=== PATIENT | male | born 1975 | race Caucasian/White ===

== ENCOUNTER → 2016-09-21 | Outpatient (CLI) | payer OTHER ==
[~2016-09-21] MED LIST: ACETAMINOPHEN-H1 TA2 PO; ALKA-SELTZER PL1 TEF PO; BENTYL10 MG PO; CLINDAMYCIN150 MG PO; CORDROL20 MG PO; Carafate1 GM PO; DOXYCYCLINE100 M3 PO; FENOFIBRATE160 MG PO; FLAGYL500 MG PO; GLIPIZIDE5 MG PO; GLUCOTROL5 MG PO; HUMALOG100 U/ML SC; JANUMET 500 MG-1 TAB PO; JANUVIA100 MG PO; LANTUS SOLOS100 U/M1 SC; LISINOPRIL40 MG PO; LOPRESSOR100 M1 PO; LOPRESSOR25 MG PO; METFORMIN ER500 MG PO; METOPROLOL TART50 M1 PO; MOBIC15 MG PO; NEURONTIN300 MG PO; NORVASC10 MG PO; PHENERGAN W/DM120 ML PO; PRILOSEC20 M1 PO; PROAIR HFA0.09 MG/AC IH; PROZAC10 MG PO; SILVADENE,SSD C50 GM T; TEMAZEPAM15 M1 PO; TOUJEO300 U/ML SC; TRAZODONE50 MG PO; ULTRAM50 MG PO; UNISOM SLEEPGEL50 MG PO; VASOTEC5 MG PO; VIBRAMYCIN100 MG PO; ZOCOR10 MG PO; ZOCOR5 MG PO; ZOFRAN ODT4 MG SL
--- NOTE | ~2016-09-21 | PR ---
[place], [place] PROGRESS NOTE NAME: VIPIN QUINONES UNIT #: [id number] ROOM: DOCTOR: JYOTI Gallardo,RAMESH BIRTHDATE: [birth year] DOS: 09/21/2016 This is a HBO therapy note This is treatment #28. The protocol is 2.0 JORDEN with 90 minutes of oxygen and no air breaks. The indication is diabetic ulcer of the lower extremity, Mcguire stage III. TREATMENT LENGTH: Her treatment started at 8:30. Treatment pressure was reached at 08:38. Treatment length was 33 minutes. Decompression began at 08:55 and ended at 09:03. Decompression rate up was 1.5 psi per minute. Compression rate down was 2.0 psi per minute. Vitals pre-HBO shows a blood pressure of 150/88, a pulse of 68, respirations 16, temperature 97.4. Glucose is 270. Post-HBO, the blood pressure is 164/84, pulse of 76, respirations 16, temperature 97.4. Glucose was 202. TEED scale grade 0 bilaterally pre and post-HBO treatment. The patient was feeling nauseous with dry heaves while he was in the chamber. He requested to end his treatment early. He said he felt a little bit nauseous this morning prior to him coming to the clinic. He had only eaten a piece of toast in the morning. He was given some crackers here and Trisha kiki and started to feel better. Advised the patient that he should eat a little bit more than one piece of dried toast for prior to HBO. The patient had a wound care appointment later this morning. I certify that I supervised this HBO treatment in accordance with Medicare guidelines. A trained emergency response team is readily available per hospital policies and procedures. Continue HBO therapy as ordered. RAMESH MONTES MD CM:PNTRANS [phone] RAMESH MONTES M.D. 09/22/16 0327 interface
--- NOTE | ~2016-09-21 | PR ---
[place], [place] PROGRESS NOTE NAME: VIPIN QUINONES UNIT #: [id number] ROOM: DOCTOR: TAPAN FERNANDEZ DPM BIRTHDATE: [birth year] DOS: 09/21/2016 SUBJECTIVE: The patient is seen for right plantar foot wound. The patient felt a little bit ill this morning when he was doing hyperbaric. He felt like he had dry heaves. He has not felt well for a couple of days. Otherwise, he has no new complaints. PHYSICAL EXAMINATION: It is noted that the area on the plantar surface of the right foot is still slightly opened at 0.1 x 0.1 x 0.1. There is callus tissue and debris, which was debrided through dermis with a 15 blade. No bleeding was noted. Wound measurements did not change. There is noted some maceration around the area. IMPRESSION: Grade 3 diabetic ulceration, progressing well. PLAN: 1. Evaluate. 2. Debridement was performed. We will change his dressings to Maxorb to the area daily. He is to continue to wear his offloading posterior splint and finish his hyperbaric oxygen therapy treatments. His last treatment is scheduled for this . The patient will be seen in 2 weeks at wound care for followup. He is to call if any problems arise in the meantime. TAPAN FERNANDEZ DPM CM:PNTRANS [phone] TAPAN FERNANDEZ DPM 09/21/16 1050 interface
== END ==
LOC: WOUNDCARE 03:11
DX: E11.621 Type 2 diabetes mellitus with foot ulcer (principal); L97.512 Non-pressure chronic ulcer of other part of right foot with fat layer exposed; L84 Corns and callosities

== ENCOUNTER → 2016-09-22 | Outpatient (CLI) | payer OTHER ==
--- NOTE | ~2016-09-22 | PR ---
[place], [place] PROGRESS NOTE NAME: VIPIN QUINONES UNIT #: [id number] ROOM: DOCTOR: JYOTI Gallardo,RAMESH BIRTHDATE: [birth year] DOS: 09/22/2016 HBO THERAPY NOTE This is treatment #29. INDICATION: Diabetic foot ulcer, Mcguire stage 3. The protocol is 2.0 JORDEN with 90 minutes of oxygen and no air breaks. His compression began at 827. Treatment pressure was reached at 835. Decompression began at 10:05 and ended at 10:13. His treatment length was 106 minutes. His vitals pre-HBO shows a blood pressure of 140/88, a pulse of 62, respirations 16, temperature is 97.8. Post-HBO treatment, the blood pressure is 168/96, pulse of 64, respirations 16, temperature is 97.7, glucose was 188. TEED scale is grade 0 bilaterally pre and post-HBO treatment. I certify that I supervised this HBO treatment in accordance with Medicare guidelines. A trained emergency response team is readily available per hospital policies and procedures. Continue HBO therapy as ordered. RAMESH MONTES MD CM:PNTRANS [phone] RAMESH MONTES M.D. 09/22/162230 interface
== END ==
LOC: WOUNDCARE 08:03
DX: E11.621 Type 2 diabetes mellitus with foot ulcer (principal); L97.512 Non-pressure chronic ulcer of other part of right foot with fat layer exposed

== ENCOUNTER → 2016-09-23 | Outpatient (CLI) | payer OTHER ==
--- NOTE | ~2016-09-23 | PR ---
[place], [place] PROGRESS NOTE NAME: VIPIN QUINONES UNIT #: [id number] ROOM: DOCTOR: JYOTI Gallardo,RAMESH BIRTHDATE: [birth year] DOS: 09/23/2016 This is HBO therapy note. INDICATION: Diabetic ulcer of the foot with a Mcguire stage III. The treatment protocol is 2.0 JORDEN with 90 minutes of oxygen and no air breaks. Treatment number was 30. The compression began at 08:12. Treatment pressure was reached at 08:20. Compression rate down was 2.0 psi per minute and decompression rate up was 2.0 psi per minute. Decompression began at 09:20 and ended at 09:28. The treatment length was 76 minutes. VITAL SIGNS: Pre-HBO shows a blood pressure of 144/88, pulse of 74, respirations 16, temperature 97.5. Glucose is 264. Post-HBO, the blood pressure is 152/92, a pulse of 68, respiratory rate is 16, temperature is 97.5, glucose of 278. TEED scale is grade 0 bilaterally pre and post-HBO treatment. The patient tolerated the treatment well without any adverse events, and he requested to end the treatment early due to transportation issues. I certify that I supervised this HBO treatment in accordance with Medicare guidelines. A trained emergency response team is readily available per hospital policies and procedures. Continue HBO therapy as ordered. RAMESH MONTES MD CM:PNTRANS [phone] RAMESH MONTES M.D. 09/24/16 0332 interface
== END ==
LOC: WOUNDCARE 01:20
DX: E11.621 Type 2 diabetes mellitus with foot ulcer (principal); L97.512 Non-pressure chronic ulcer of other part of right foot with fat layer exposed

== ENCOUNTER → 2016-10-05 | Outpatient (CLI) | payer OTHER ==
--- NOTE | ~2016-10-05 | PR ---
[place], [place] PROGRESS NOTE NAME: VIPIN QUINONES UNIT #: [id number] ROOM: DOCTOR: TAPAN FERNANDEZ DPM BIRTHDATE: [birth year] DOS: 10/05/2016 SUBJECTIVE: The patient seen for right plantar foot ulceration. The patient has completed his hyperbaric oxygen therapy treatments without any complaints. PHYSICAL EXAMINATION: Upon physical exam, it is noted that the ulceration upon exam is completely closed. Callous covered without any evidence of open wound or drainage. The patient states that he has been wearing his posterior splint as directed without any complaints. IMPRESSION: Healed wound, plantar surface of the right foot. PLAN: 1. Evaluate. 2. The patient will be discharged as healed. He was given a prescription for diabetic shoes and insoles. His current insoles in his work boots were modified to offload the area of the previous ulceration. The patient will be discharged as healed and reappoint as needed. TAPAN FERNANDEZ DPM CM:PNZAHIRA [phone] TAPAN FERNANDEZ DPM 10/05/162210 interface
--- NOTE | ~2016-10-05 | PR ---
[place], [place] PROGRESS NOTE [id number] UNIT #: [id number] ROOM: DOCTOR: REBECCA RYANTAPAN BIRTHDATE: [birth year] DOS: 11/09/2016 SUBJECTIVE: The patient had been seen at the [facility] quite a while ago, he was healed and discharged. He was given a script for diabetic shoes. Apparently, [facility] has now stopped dispensing diabetic shoes, they are only doing prosthetics and orthotics. He was just recently given an alternative shoe company to get his diabetic shoes through. Today, he presents with wounds on both feet. The left foot recurred several weeks ago, and about a week ago, he developed another area of ulceration on the right foot, possibly due to trauma, he noticed some bleeding in his shoes and subsequently noticed this wound. PHYSICAL EXAMINATION: It is noted that the left foot plantar surface wound is 0.5 x 0.5 x 0.3. There is a lot of callus tissue and devitalized tissue, which was debrided through subcutaneously with a 15 blade. The patient tolerated the procedure well. There was moderate bleeding controlled with pressure to the area and no signs of infection currently in this area. Right foot plantar surface wound measures 0.5 x 0.3 x 0.5. It is completely circular. There is erythema and appearance of some deep tissue infection. There is a darkened spot and what appears to be a puncture-type wound with probing of this area, a piece of foreign body is thought to be felt within the surface of the wound and also makes a noise similar to like if there was some sort of metal or twig or some sort of foreign body in the area. Again, this area measures 0.5 x 0.3 x 0.5 in depth. No drainage or odor coming from the site currently. IMPRESSION: Left foot plantar surface wound grade 2, diabetic in nature, and right foot plantar surface wound with cellulitis and infection, probably grade 3 at this point in time, if there is a foreign body. PLAN: 1. Evaluate. 2. Debridement was performed. The patient will be sent for x-rays. He was also placed on doxycycline. I did take a culture and sensitivity to the area and I would like to see the patient back in 1 week for followup of this complaint. [place], [place] PROGRESS NOTE NAME: VIPIN QUINONES UNIT #: [id number] ROOM: DOCTOR: TAPAN FERNANDEZ DPM BIRTHDATE: [birth year] TAPAN FERNANDEZ DPM CM:LESLIE [phone] TAPAN FERNANDEZ DPM 12/01/16 1244 AMY DOS SANTOS.LLR
== END | disposition home or self-care (01) ==
LOC: WOUNDCARE 02:41
DX: E11.621 Type 2 diabetes mellitus with foot ulcer (principal); L97.512 Non-pressure chronic ulcer of other part of right foot with fat layer exposed; L84 Corns and callosities

== ENCOUNTER → 2016-12-14 | Outpatient (CLI) | payer OTHER ==
--- NOTE | ~2016-12-14 | PR ---
[place], [place] PROGRESS NOTE NAME: VIPIN QUINONES [id number] UNIT #: [id number] ROOM: DOCTOR: TAPAN FERNANDEZ DPM BIRTHDATE: [birth year] DOS: 12/14/2016 SUBJECTIVE: This is an established patient seen for bilateral lower extremity diabetic neuropathic wounds. The patient has been performing dressing changes as directed. No new complaints at this time. PHYSICAL EXAMINATION: It is noted, the left foot plantar wound is very small at 0.1 x 0.1 x 0.1. There is some callus tissue and debris, which was debrided through dermis. No bleeding was noted. The patient tolerated the procedure well. Right foot plantar surface wound is 0.5 x 0.5 x 0.2. Again, an abundance of devitalized callus tissue was debrided through dermis with a 15 blade. No bleeding was noted. The patient tolerated the procedure well. Either side looks as if there is any bacterial infection or any other abnormalities noted at this point in time. IMPRESSION: Grade 2 diabetic ulcerations, bilateral, stable and progressing, but needing better offloading. PLAN: 1. Evaluate. 2. Debridement was performed. I discussed the possibility of putting the patient back in a posterior splint. He is a bit reluctant to do that. On the right foot, we will use offloading felted foam, horseshoe shaped pads to offload the area and help structurally support the metatarsals and straighten the toes. The patient thinks he has an appointment to get diabetic shoes. I would like for a metatarsal pad to be worked into his diabetic inserts. I have instructed him to tell the cardiac rehabilitation program director as such. We will see the patient back in a week. If we are still not getting enough offloading to that area, we will then put him in a posterior splint. The patient is to call if any problems arise in the meantime. TAPAN FERNANDEZ DPM CM:PNTRANS [phone] TAPAN FERNANDEZ DPM 12/14/16 1205 interface
== END ==
LOC: WOUNDCARE 03:10
DX: E10.621 Type 1 diabetes mellitus with foot ulcer (principal); L97.512 Non-pressure chronic ulcer of other part of right foot with fat layer exposed; L97.522 Non-pressure chronic ulcer of other part of left foot with fat layer exposed; E10.40 Type 1 diabetes mellitus with diabetic neuropathy, unspecified

== ENCOUNTER → 2016-12-21 | Outpatient (CLI) | payer OTHER ==
--- NOTE | ~2016-12-21 | PR ---
[place], [place] PROGRESS NOTE NAME: VIPIN QUINONES UNIT #: [id number] ROOM: DOCTOR: TAPAN FERNANDEZ DPM BIRTHDATE: [birth year] DOS: 12/21/2016 SUBJECTIVE: This is an established patient seen for plantar surface diabetic ulcerations, bilateral feet. The patient is doing well. He has no new complaints today; he has been using the offloading horseshoe shaped pads and seems to be progressing very well. Right foot plantar surface wound is measuring much smaller at 0.6 x 0.3 x 0.3. Callus tissue and debris was divided around the periphery of the wound. The patient tolerated the procedure well. Some bleeding was noted. This was taken down to the level of dermis. Silver nitrate was used to control bleeding. Left foot plantar surface is very small wound 0.1 x 0.1 x 0.1. Minimal calluses there which was debrided through dermis. No signs of infection or complications noted. IMPRESSION: Grade 2 diabetic ulcerations, bilateral feet, progressing very well. PLAN: 1. Evaluate. 2. Debridement as described. We will use Puracol and a dry bulky dressing to the right foot with a horseshoe pad to offload the area. Additional horseshoe pads were given to the patient. We will see him in 2 weeks for followup of this complaint. TAPAN FERNANDEZ DPM CM:LESLIE [phone] TAPAN FERNANDEZ DPM 12/21/16 1143 interface
== END ==
LOC: WOUNDCARE 12-20 11:49
DX: E10.621 Type 1 diabetes mellitus with foot ulcer (principal); L97.512 Non-pressure chronic ulcer of other part of right foot with fat layer exposed; L97.522 Non-pressure chronic ulcer of other part of left foot with fat layer exposed; L84 Corns and callosities

== ENCOUNTER → 2017-01-04 | Outpatient (CLI) | payer OTHER ==
--- NOTE | ~2017-01-04 | PN ---
[place], [place] PROGRESS NOTE NAME: VIPIN QUINONES UNIT #: [id number] ROOM: DOCTOR: TAPAN FERNANDEZ DPM BIRTHDATE: [birth year] DATE: 01/04/17 SUBJECTIVE: The patient seen for plantar surface, right foot ulceration as well as plantar surface left foot ulceration. Left foot ulcer is healed. Right foot ulcer currently measures 0.3 x 0.3 x 0.2 beefy red granular base. No signs of infection noted. Moderate callus surrounding the tissue, which was debrided with 15 blade through to dermis and some bleeding was noted, controlled with silver nitrate. Again, no evidence of infection. One retention stitch was placed in the area using 3-0 Vicryl in a mattress stitch pattern. IMPRESSION: Grade 2 diabetic ulceration, plantar surface, right foot, progressing well. PLAN: 1. Evaluate. 2. Debridement was performed as well as the retention stitch placed. The patient will have a dry bulky dressing placed on the area. He is to changes this every 3-4 days and reappoint in 1 week for followup. He is to continue to wear his shoe with his offloading support device and call if any problems arise in the meantime. TAPAN FERNANDEZ DPM CM:PNTRANS [phone] TAPAN FERNANDEZ DPM 01/06/17 1417 AMY DOS SANTOS MIS.LLR
== END ==
LOC: WOUNDCARE 04:18
DX: E10.621 Type 1 diabetes mellitus with foot ulcer (principal); L97.512 Non-pressure chronic ulcer of other part of right foot with fat layer exposed; L84 Corns and callosities

== ENCOUNTER → 2017-01-11 | Outpatient (CLI) | payer OTHER ==
--- NOTE | ~2017-01-11 | PR ---
[place], [place] PROGRESS NOTE NAME[id number] UNIT #: [id number] ROOM: DOCTOR: TAPAN FERNANDEZ DPM BIRTHDATE: [birth year] DOS: 01/11/2017 SUBJECTIVE: The patient was seen for followup of bilateral plantar surface diabetic grade 2 ulcerations, right plantar foot ulcer had a stitch placed in it last week that has stayed in although there is some gapping, and left plantar foot is healed upon examination. Right plantar foot, the stitch was removed. The areas is measuring 0.5 x 0.2 x 0.2 cm. Callus tissue and debris was debrided through to dermis. Minimal bleeding was controlled with pressure and additional retention stitch 0 Vicryl was placed in the wound in a mattress pattern. The patient tolerated procedure well. IMPRESSION: Grade 2 diabetic ulceration, left foot healed. Grade 2 diabetic ulceration, right foot, progressing well. PLAN: 1. Evaluate. 2. Retention stitch was placed in the wound. The patient will keep bandage on clean, dry, and intact and reappoint next week for followup of this complaint. If any problems arise, he is to call the [facility] Care Center immediately. TAPAN FERNANDEZ DPM CM:LESLIE [phone] TAPAN FERNANDEZ DPM 01/11/17 1125 interface
== END ==
LOC: WOUNDCARE 01:05
DX: E10.621 Type 1 diabetes mellitus with foot ulcer (principal); L97.512 Non-pressure chronic ulcer of other part of right foot with fat layer exposed

== ENCOUNTER → 2017-01-18 | Outpatient (CLI) | payer OTHER ==
--- NOTE | ~2017-01-18 | PR ---
[place], [place] PROGRESS NOTE NAME: VIPIN QUINONES UNIT #: [id number] ROOM: DOCTOR: TAPAN FERNANDEZ DPM BIRTHDATE: [birth year] DOS: 01/18/2017 SUBJECTIVE: The patient seen for grade 2 diabetic plantar foot wound. The patient had suture placed last week. He has kept the bandage on, clean, dry and intact as directed and has no new complaints. PHYSICAL EXAMINATION: It is noted that the suture is in place. There is a small area centrally in the previous area of wound that measures 0.1 x 0.1 x 0.1. There is no evidence of infection or devitalized tissue or any other complications. No debridement was performed today. IMPRESSION: Grade 2 diabetic ulceration, progressing well with current therapies. PLAN: 1. Evaluate. 2. We will leave the stitch intact, dry dressing was reapplied. The patient is to keep this on clean, dry, and intact and reappoint at the wound center in 1 week. TAPAN FERNANDEZ DPM CM:PNZAHIRA [phone] TAPAN FERNANDEZ DPM 01/19/17 0159 interface
== END ==
LOC: WOUNDCARE 04:09
DX: E10.621 Type 1 diabetes mellitus with foot ulcer (principal); L97.512 Non-pressure chronic ulcer of other part of right foot with fat layer exposed

== ENCOUNTER → 2017-02-01 | Outpatient (CLI) | payer OTHER ==
--- NOTE | ~2017-02-01 | PR ---
[place], [place] PROGRESS NOTE NAME: [facility]ES [id number] UN[facility] #: [id number] ROOM: DOCTOR: TAPAN FERNANDEZ DPM BIRTHDATE: [birth year] DOS: 02/01/2017 SUBJECTIVE: The patient seen for the plantar surface, right foot grade 2 diabetic ulceration. The patient had a stitch placed in the area last time. He has kept the bandage on, clean, dry and intact without any complaints on this area. He does have a new injury that is just under week old. He did drop an automotive motor on his left great toe, and so he has a new ulcer on the distal aspect of this toe. PHYSICAL EXAMINATION: It is noted that the right plantar foot ulcer is progressing well. Stitch is in, but it is not needed any longer because the skin edges have coapted. There is only a very small opening to the area. It is very superficial, 0.1 x 0.1 x 0.1. Callus tissue and debris was debrided through to dermis. No bleeding or complications were noted in this area. Left great toe laterally has an open ulcer secondary to trauma. We will consider grade 1 diabetic. It is 1.2 x 1.6 x 0.1 cm base is relatively clean. There is a central area of some slough, but this area is not debrided today. No signs of infection, odor or cellulitis noted around this region. IMPRESSION: Grade 1 ulceration new left toe and then grade 2 diabetic ulceration on plantar surface, right foot, progressing well. PLAN: 1. Evaluate. 2. Debridement of the callus tissue was performed on the right foot. We will continue with Puracol and a dry dressing to that area, left great toe. We will use Adaptic and a dry dressing to that area every other day. I would like to see the patient back in 1 week for followup of these complaints. TAPAN FERNANDEZ DPM CM:PNTRANS [phone] TAPAN FERNANDEZ DPM 02/02/17 0156 interface
== END | disposition home or self-care (01) ==
LOC: WOUNDCARE 03:11
DX: E11.621 Type 2 diabetes mellitus with foot ulcer (principal); L97.511 Non-pressure chronic ulcer of other part of right foot limited to breakdown of skin; L97.521 Non-pressure chronic ulcer of other part of left foot limited to breakdown of skin

== ENCOUNTER → 2017-02-08 | Outpatient (CLI) | payer OTHER ==
--- NOTE | ~2017-02-08 | PR ---
[place], [place] PROGRESS NOTE NAME: [id number] UN[facility] #: [id number] ROOM: DOCTOR: TAPAN FERNANDEZ DPM BIRTHDATE: [birth year] DOS: 02/08/2017 SUBJECTIVE: The patient was seen for followup of left great toe diabetic grade 1 ulceration and right foot plantar grade 2 diabetic ulceration. The patient relates no new complaints. He has been performing dressing changes as directed. PHYSICAL EXAMINATION: EXTREMITIES: It is noted that the plantar foot ulceration is considered healed. It is completely covered. There is no open wound at this time. No complications or signs of infection. Left great toe continues to improve. It currently measures 0.8 x 0.9 x 0.1. Devitalized tissue debris and fibrosis was debrided with 15 blade through subcutaneous. Minimal bleeding controlled via pressure. The patient tolerated procedure well and no signs of infection or any other complications in this area as well. IMPRESSION: Healed grade 2 diabetic ulceration on plantar surface, right foot and grade 1 diabetic ulceration left foot progressing well. PLAN: 1. Evaluate. 2. Debridement was performed as described above. We will use Puracol and a dry dressing to the left great toe wound and see the patient back in 1 week for followup. TAPAN FERNANDEZ DPM CM:LESLIE [phone] TAPAN FERNANDEZ DPM 02/09/17 0136 interface
== END ==
LOC: WOUNDCARE 01:23
DX: E10.621 Type 1 diabetes mellitus with foot ulcer (principal); L97.522 Non-pressure chronic ulcer of other part of left foot with fat layer exposed

== ENCOUNTER → 2017-02-15 | Outpatient (CLI) | payer OTHER ==
--- NOTE | ~2017-02-15 | PR ---
[place], [place] PROGRESS NOTE NAME: VIPIN QUINONES UNIT #: [id number] ROOM: DOCTOR: TAPAN FERNANDEZ DPM BIRTHDATE: [birth year] DOS: 02/15/2017 SUBJECTIVE: The patient is seen for followup of left lateral great toe ulcer. The patient has been providing dressing changes as directed. No new complaints. PHYSICAL EXAMINATION: It is noted that the wound is very small, 0.4 x 0.6 x 0.1 cm. No complications and no need for debridement today. IMPRESSION: Injury with ulceration, left great toe, progressing well, almost healed. PLAN: 1. Evaluate. 2. We will continue with local wound care. The patient will be seen next week for 1 additional followup visit. Hopefully, after that point in time, he will be healed and hopefully he will be able to be discharged. TAPAN FERNANDEZ DPM CM:LESLIE [phone] TAPAN FERNANDEZ DPM 02/15/17 0926 interface
== END ==
LOC: WOUNDCARE 02:42
DX: E10.621 Type 1 diabetes mellitus with foot ulcer (principal); L97.522 Non-pressure chronic ulcer of other part of left foot with fat layer exposed

== ENCOUNTER → 2017-02-22 | Outpatient (CLI) | payer OTHER ==
--- NOTE | ~2017-02-22 | PR ---
[place], [place] PROGRESS NOTE NAME: VIPIN QUINONES UNIT #: [id number] ROOM: DOCTOR: TAPAN FERNANDEZ DPM BIRTHDATE: [birth year] DOS: 02/22/2017 SUBJECTIVE: The patient was seen for followup of left great toe distal ulcer. The patient has been using Neelam and dry dressing as directed. No new complaints. Upon physical exam, it is noted that the wound is healed. It is completely epithelialized. There is no open wound at this time. The patient will be discharged today from the [facility] in [facility] with a healed wound. The patient is encouraged to call or reappoint if needed if any new problems or issues would arise. TAPAN FERNANDEZ DPM CM:PNTRANS [phone] TAPAN FERNANDEZ DPM 02/22/17 2141 interface
== END ==
LOC: WOUNDCARE 03:25
DX: E10.621 Type 1 diabetes mellitus with foot ulcer (principal); L97.522 Non-pressure chronic ulcer of other part of left foot with fat layer exposed

== ENCOUNTER → 2017-09-06 | Outpatient (CLI) | payer OTHER ==
[2017-09-06 09:47] LABS: BUN 14 mg/dl (7-24); CHLORIDE 103 mmol/L (98-107); CHOLESTEROL 110 mg/dL (<200); CPK 117 U/L (39-308); CREATININE 0.92 mg/dL (0.70-1.30); HDL CHOLESTEROL 35 mg/dl (40-60); LDL CHOLESTEROL 41 mg/dL (9-159); SODIUM 138 mmol/L (136-145); TRIGLYCERIDES 169 mg/dl (<150); VLDL CHOLESTEROL 34 mg/dL (6-40)
== END | disposition home or self-care (01) ==
LOC: LAB 08:48
PROVIDERS: Family Medicine
DX: E78.5 Hyperlipidemia, unspecified (principal); E11.65 Type 2 diabetes mellitus with hyperglycemia

== ENCOUNTER → 2017-10-26 | Outpatient (CLI) | payer OTHER | END | disposition home or self-care (01) | LOC: WOUNDCARE 03:17 | DX: E11.621 Type 2 diabetes mellitus with foot ulcer (principal); L97.521 Non-pressure chronic ulcer of other part of left foot limited to breakdown of skin; L97.511 Non-pressure chronic ulcer of other part of right foot limited to breakdown of skin; E11.42 Type 2 diabetes mellitus with diabetic polyneuropathy; E11.69 Type 2 diabetes mellitus with other specified complication; M86.8X8 Other osteomyelitis, other site; I10 Essential (primary) hypertension; E78.5 Hyperlipidemia, unspecified ==

== ENCOUNTER → 2017-11-02 | Outpatient (CLI) | payer OTHER | END | disposition home or self-care (01) | LOC: WOUNDCARE 01:03 | DX: E11.621 Type 2 diabetes mellitus with foot ulcer (principal); L97.422 Non-pressure chronic ulcer of left heel and midfoot with fat layer exposed; L97.412 Non-pressure chronic ulcer of right heel and midfoot with fat layer exposed; E11.40 Type 2 diabetes mellitus with diabetic neuropathy, unspecified; E11.69 Type 2 diabetes mellitus with other specified complication; M86.8X8 Other osteomyelitis, other site; I10 Essential (primary) hypertension; E78.5 Hyperlipidemia, unspecified; F12.90 Cannabis use, unspecified, uncomplicated ==

== ENCOUNTER → 2017-11-10 | Outpatient (CLI) | payer OTHER | END | disposition home or self-care (01) | LOC: WOUNDCARE 00:43 | DX: E11.621 Type 2 diabetes mellitus with foot ulcer (principal); L97.521 Non-pressure chronic ulcer of other part of left foot limited to breakdown of skin; L97.511 Non-pressure chronic ulcer of other part of right foot limited to breakdown of skin; E11.40 Type 2 diabetes mellitus with diabetic neuropathy, unspecified; E11.69 Type 2 diabetes mellitus with other specified complication; M86.8X8 Other osteomyelitis, other site; I10 Essential (primary) hypertension; E78.5 Hyperlipidemia, unspecified; F12.90 Cannabis use, unspecified, uncomplicated ==

== ENCOUNTER → 2017-11-16 | Outpatient (CLI) | payer OTHER | END | disposition home or self-care (01) | LOC: WOUNDCARE 08:36 | DX: E11.621 Type 2 diabetes mellitus with foot ulcer (principal); L97.521 Non-pressure chronic ulcer of other part of left foot limited to breakdown of skin; L97.511 Non-pressure chronic ulcer of other part of right foot limited to breakdown of skin; E11.69 Type 2 diabetes mellitus with other specified complication; M86.8X8 Other osteomyelitis, other site; E11.40 Type 2 diabetes mellitus with diabetic neuropathy, unspecified; I10 Essential (primary) hypertension; E78.5 Hyperlipidemia, unspecified; F12.90 Cannabis use, unspecified, uncomplicated ==

== ENCOUNTER → 2017-12-21 | Outpatient (CLI) | payer OTHER | END | disposition home or self-care (01) | LOC: WOUNDCARE 03:56 | DX: E11.621 Type 2 diabetes mellitus with foot ulcer (principal); L97.521 Non-pressure chronic ulcer of other part of left foot limited to breakdown of skin; L97.511 Non-pressure chronic ulcer of other part of right foot limited to breakdown of skin; E11.40 Type 2 diabetes mellitus with diabetic neuropathy, unspecified; E11.69 Type 2 diabetes mellitus with other specified complication; M86.8X8 Other osteomyelitis, other site; E78.5 Hyperlipidemia, unspecified; I10 Essential (primary) hypertension ==

== ENCOUNTER 2017-12-28 08:33 | Inpatient (IN) | payer OTHER ==
[~2017-12-28] VITALS: Ht 170.1 cm; Wt 81.4 kg
--- NOTE | ~2017-12-28 | PR ---
[place], [place] PROGRESS NOTE NAME: VIPIN QUINONES UNIT #: [id number] ROOM: 404 DOCTOR: TANA WOLF DPM BIRTHDATE: [birth year] DOS: 12/31/2017 SUBJECTIVE: The patient is seen for followup of post incision and drainage of the left hallux. The patient is resting comfortably in bed. OBJECTIVE: Results of the biopsy consistent with acute and chronic osteomyelitis. Removal of the dressing and packing reveals no signs of purulent drainage or foul odor. Area is granulating well at this time, decreased erythema and edema. ASSESSMENT: Osteomyelitis, post-abscess of the left hallux. PLAN: Quarter inch plain packing with wet to dry dressing was performed this visit, continue twice daily. The patient can be discharged per Infectious Disease and Internal Medicine and will follow at the wound care center. TANA WOLF DPM CM:LESLIE [phone] TANA WOLF DPM 12/31/17 1154 interface
--- NOTE | ~2017-12-28 | PR ---
[place], [place] PROGRESS NOTE NAME: [id number] UNIT #: [id number] ROOM: 404 DOCTOR: CHERELLE FRENCH,DECEMBER BIRTHDATE: [birth year] DOS: SUBJECTIVE: The patient is a 42-year-old male who is being followed for diabetic foot infection on the left. He had been on doxycycline and clindamycin prior to surgery. His operative cultures are negative. Pathology of the left great toe does show acute and chronic osteomyelitis. Gram stains did not reveal any bacteria either, blood cultures are negative. He is currently receiving vancomycin and Zosyn. He is alert and oriented, tolerating the antibiotics. Denies fevers, chills, nausea, vomiting or diarrhea. No rash or itch. No cough, shortness of breath. No fevers or shaking chills. Does have some swelling in the left eye which he states is improving. He states that it occurred on the day His PICC line was placed. Does not wear corrective lenses. VITAL SIGNS: Temperature 98.8, pulse 74, respirations 20, BP 147/84. LABORATORY DATA: Vancomycin trough is 18.7. Cultures as reviewed above. CURRENT MEDICATIONS: Zestril, Lantus, Humalog, Lopid, Lovenox, vitamin D, Protonix, Desyrel, Lopressor, [place], Lipitor, vancomycin, Zosyn, Restoril, Zofran, Dulcolax, Tylenol. PHYSICAL EXAMINATION: GENERAL: A 42-year-old male in no acute distress. HEAD, EYES, EARS, NOSE AND THROAT: Normocephalic, no thrush. Left eye, the conjunctivae is clear. There is no drainage. He has some swelling of the periorbital area just below the eye and of the lid which he states is improving. There is no erythema and no tenderness of the edema just over the eye itself. LUNGS: Clear to auscultation bilaterally. Respirations even and unlabored. HEART: Regular rhythm. No murmur appreciated. ABDOMEN: Soft, nondistended. EXTREMITIES: No edema. Left foot dressing dry and intact. SKIN: Warm, dry, free of rashes. PICC in the right upper extremity. Dressing dry and intact. No signs of phlebitis. ASSESSMENT: Left great toe osteomyelitis and diabetic foot infection status post debridement. Pathology with acute and chronic osteomyelitis. He has PICC line in place. PLAN: He is to continue antibiotics for an estimated 6 weeks with choices either being ____ and once a week with ertapenem at an infusion center versus vancomycin b.i.d. and ertapenem once a day. He continues to have some diarrhea. C. diff is negative. Order Imodium. Case discussed with Dr. Yovani Orellana. CHINO VILLARREAL CNP [place], [place] PROGRESS NOTE NAME: VIPIN QUINONES UNIT #: [id number] ROOM: 404 DOCTOR: CHERELLE FRENCH BIRTHDATE: [birth year] YOVANI ORELLANA MD CM:PNTRANS 06 57 CHERELLE FRENCH 01/01/182056 interface
--- NOTE | ~2017-12-28 | O ---
[place], [place] OPERATIVE NOTE NAME: VIPIN QUINONES UNIT #: [id number] ROOM: 404 DOCTOR: TANA WOLF DPM BIRTHDATE: [birth year] DOS: 12/29/2017 INTERIM NOTE: The patient was seen preoperatively in the preop area, discussed with the patient possible amputation of the toe if warranted intraoperatively. The patient had a sinus tract to the planter medial aspect of the left hallux noted. There was purulent drainage noted. I discussed with the patient potential risks and complications including but not limited to overcorrection, under correction, need for additional surgical procedure, possible future amputation, need for IV antibiotic treatment, nonhealing of the wound, possible limb loss. The patient understood. All questions were answered. The patient scheduled and proceeded with incision and drainage of the abscess of the first left toe with bone biopsy and possible amputation is warranted. The patient was then taken to OR suite. PREOPERATIVE DIAGNOSES: Abscess, first left toe with possible osteomyelitis. POSTOPERATIVE DIAGNOSES: Abscess, first left toe with possible osteomyelitis, pending pathology. PROCEDURE: Incision and drainage, first left toe with bone biopsy. ESTIMATED BLOOD LOSS: 4 mL. SPECIMEN: Bone, first left toe. PACKING: A 0.25 inch plain packing. NATURAL RESOURCE MANAGER: None. SURGEON: Tana Wolf DPM. ANESTHESIA: LMAC. PROCEDURE DETAILS: The patient was brought to the operating room, placed on the operating table in supine position. Anesthesia was administered per Anesthesia Department. Local infiltration of 7 mL of 0.5% Marcaine plain was utilized for digital block of the left hallux. The left foot was prepped and draped in usual aseptic manner. Attention was directed to the ulceration to plantar medial aspect at the IPJ of the left hallux. A [place] elevator was inserted and noted to extend dorsal medially through the sinus tract, purulent drainage was noted. The area was then ____ incised with a 15 blade. Dissection carried down to the level of bone. The incision was approximately 3 cm in length, which was the total extent of the sinus tract. No distal or proximal involvement. The exposed bone at the IPJ was noted to be regular and soft and crumbly. This was debrided with a bone rongeur and bone rasp. The bone was sent for pathology to rule out osteomyelitis, also for cultures consisting of gram-stain, aerobic, anaerobic, acid-fast and fungal cultures. Tissue culture also taken with the same orders. The area was then flushed copiously with sterile saline. The necrotic nonviable tissue was excised with a 15 blade. The superior aspect of the incision site was closed primarily with 3-0 nylon in [place], [place] OPERATIVE NOTE NAME: VIPIN QUINONES UNIT #: [id number] ROOM: [facility] DOCTOR: TANA WOLF DPM BIRTHDATE: [birth year] simple interrupted manner, down to the level of the initial ulceration at the plantar aspect of the toe, which was left open. At this time that area was packed with 0.25 inch plain packing. Sterile compressive dressing was then applied consisting of Xeroform, wet to dry dressing consisting of 4 x 4s, Kerlix and Harley bandage. The patient tolerated the procedure and anesthesia well and left the OR with vital signs stable and neurovascular status intact. Capillary refill time was noted to be normal to the left hallux at the completion of the procedure and estimated blood loss was approximately 4 mL total. No tourniquet was used during the procedure. The patient will be discharged back to the nursing unit to resume previous orders, antibiotics per Infectious Disease. Ordered sed rate, c-reactive protein and CBC with diff for tomorrow morning. Discussed the case via telephone postoperatively with Dr. Montiel, who had referred the patient from the wound care center. The patient can followup postoperatively upon discharge at the wound care center for continued followup. The patient will be seen tomorrow with Dr. Amador. TANA WOLF DPM CM:OPRECORD:OPERATIVE NOTE 1348 [id number] TANA WOLF DPM 01/03/18 1213 interface
--- NOTE | ~2017-12-28 | PR ---
[place], [place] PROGRESS NOTE NAME: VIPIN QUINONES UNIT #: [id number] ROOM: 404 DOCTOR: FERNANDO JACKSON DPM BIRTHDATE: [birth year] DOS: 01/02/2018 SUBJECTIVE: The patient is seen postop bone biopsy, I and D, left foot. He states he is doing well. He is anxiously awaiting discharge. He admits to some sharp pain occasionally in the left great toe. OBJECTIVE: Upon removal of the bandage, neurovascular status is unchanged. Wound is clean and granular. Incision is coapted. Minimal edema about the toe. No erythema or increased temperature. No purulent drainage or malodor. ASSESSMENT: Status post I and D, bone biopsy, left great toe, doing well. PLAN: Packing and dressing is changed. Okay to discharge from Podiatry standpoint. He will follow up with Dr. Montiel at the wound care center for continued care. FERNANDO JACKSON DPM CM:PNTRANS 1250 1421 FERNANDO JACKSON DPM 01/02/18 1421 interface
--- NOTE | ~2017-12-28 | PR ---
[place], [place] PROGRESS NOTE NAME: VIPIN QUINONES [facility] #: [id number] UNIT #: [id number] ROOM: 404 DOCTOR: FERNANDO JACKSON DPM BIRTHDATE: [birth year] DOS: 12/30/2017 SUBJECTIVE: This patient is seen for followup 1 day status post I and D, bone biopsy, left great toe. States he is doing well. He was nauseous last night, but he feels fine today. Admits to a little pain in the foot. The patient is diabetic. OBJECTIVE: Upon removal of the bandage, neurovascular status is unchanged. No necrotic tissue was seen. Part of the incision and drainage site is sutured. There is no expressible drainage. Mild edema, no erythema or increased temperature. No remaining abscess. Overall, everything is healing and looking good at this time. ASSESSMENT: One day status post I and D, bone biopsy, left great toe. PLAN: Packing and dressing is changed. Continue with wound care. Continue nonweightbearing on the left foot. Continue IV antibiotics per Infectious Disease and follow up with the patient tomorrow for reevaluation. FERNANDO JACKSON DPM CM:PNZAHIRA 1240 1501 FERNANDO JACKSON DPM 12/30/17 1500 interface
--- NOTE | ~2017-12-28 | PR ---
[place], [place] PROGRESS NOTE NAME: VIPIN QUINONES UNIT #: [id number] ROOM: 404 DOCTOR: TANA WOLF DPM BIRTHDATE: [birth year] DOS: SUBJECTIVE: The patient is seen post I and D of abscess, left hallux. The patient is resting comfortably in bed, is waiting for placement to extended care facility for IV antibiotic treatment. OBJECTIVE: Upon examination of the wound, the incision site is well coapted. No signs of purulent drainage or foul odor. No return of abscess, no erythema or edema. ASSESSMENT: Post incision and drainage of abscess, osteomyelitis, left great toe. PLAN: Continue local wound care. The patient will follow at the wound care center with Dr. Montiel. Continue IV antibiotics per infectious disease. TANA WOLF DPM CM:PNTRANS 1237 1320 TANA WOLF DPM 01/03/18 1319 interface
[2017-12-28 08:33] VITALS: BP 174/109
[~2017-12-28 08:33] MED LIST changes: -CIPROFLOXACIN750 MG PO; -LIPITOR80 MG PO; -LISINOPRIL20 MG PO; -LOPID600 M1 PO; -OMEPRAZOLE D/R20 MG PO; -TOUJEO SOL300 UNIT/1 SQ
[2017-12-28] MEDS ORDERED: TOUJEO SOL300 UNIT/1 SQ ×2 (08:49→14:49)
[2017-12-28] MEDS ORDERED: CIPROFLOXACIN750 MG PO (08:59)
[2017-12-28] MEDS ORDERED: DOXYCYCLINE100 M3 PO (09:00)
[2017-12-28 09:08] LABS: BASO # 0.1 10*3/uL (0.0-0.1); BASO % 0.7 % (0.0-1.0); EOS # 0.3 10*3/uL (0.0-0.4); EOS % 3.1 % (1.0-4.0); HEMATOCRIT 40.7 % (42.0-52.0); HEMOGLOBIN 13.8 g/dl (14.0-18.0); LYMPH # 2.6 10*3/uL (1.3-4.4); LYMPH % 29.7 % (27.0-41.0); MEAN CELL VOLUME 86.2 fl (80.0-94.0); MEAN CORPUSCULAR HGB 29.2 pg (27.0-31.0); MEAN CORPUSCULAR HGB CONC 33.9 g/dl (33.0-37.0); MEAN PLATELET VOLUME 9.8 fl (9.6-12.3); MONO # 0.5 10*3/uL (0.1-1.0); MONO % 5.9 % (3.0-9.0); NEUT # 5.3 10*3/uL (2.3-7.9); NEUT % 59.5 % (47.0-73.0); PLATELET COUNT AUTOMATED 486 10*3/uL (130-400); RED BLOOD COUNT 4.72 10*6/uL (4.50-5.90); RED CELL DISTRI WIDTH 12.5 % (0-14.5); WHITE BLOOD COUNT 8.8 10*3/uL (4.8-10.8)
[2017-12-28 09:20] LABS: ACT PARTIAL THROMBO TIME 24.7 SECONDS (20.8-31.5)
[2017-12-28 09:22] LABS: ALBUMIN 3.6 gm/dl (3.1-4.5); ALKALINE PHOSPHATASE 170 U/L (45-117); BUN 9 mg/dl (7-24); CHLORIDE 105 mmol/L (98-107); LIPASE 126 U/L (73-393); SGOT/AST 59 IU/L (3-35); SGPT/ALT 63 U/L (12-78); SODIUM 139 mmol/L (136-145); TOTAL PROTEIN 8.2 gm/dL (6.4-8.2)
[2017-12-28 09:25] LABS: TROPONIN I < 0.015 ng/ml (<0.045)
[2017-12-28 11:16] VITALS: BP 100/56
[2017-12-28 11:30] VITALS: BP 155/98
[2017-12-28 13:16] LABS: BILIRUBIN NEGATIVE (NEGATIVE); BLOOD NEGATIVE (NEGATIVE); CLARITY CLEAR (CLEAR); COLOR YELLOW (YELLOW); GLUCOSE NEGATIVE (NEGATIVE); KETONE NEGATIVE (NEGATIVE); LEUKO ESTERASE NEGATIVE (NEGATIVE); NITRITE NEGATIVE (NEGATIVE); UROBILINOGEN 0.2 E.U./dl (0.2-1.0)
[2017-12-28 13:22] LABS: RBC 0-2 rbc/hpf (0-2)
[2017-12-28] MEDS ORDERED: LISINOPRIL20 MG PO (14:49)
[2017-12-28] MEDS ORDERED: LOPID600 M1 PO (14:49)
[2017-12-28] MEDS ORDERED: OMEPRAZOLE D/R20 MG PO (14:49)
[2017-12-28] MEDS ORDERED: LIPITOR80 MG PO (14:50)
[2017-12-28 16:00] VITALS: BP 149/80
[2017-12-28 20:00] VITALS: BP 140/77
[2017-12-29] VITALS (9 sets, daily range): BP systolic 150–182; BP diastolic 93–105
[2017-12-29 06:16] LABS: BASO # 0.1 10*3/uL (0.0-0.1); BASO % 0.6 % (0.0-1.0); EOS # 0.3 10*3/uL (0.0-0.4); EOS % 3.5 % (1.0-4.0); LYMPH # 2.9 10*3/uL (1.3-4.4); LYMPH % 37.2 % (27.0-41.0); MEAN CELL VOLUME 87.2 fl (80.0-94.0); MEAN CORPUSCULAR HGB 29.1 pg (27.0-31.0); MEAN CORPUSCULAR HGB CONC 33.3 g/dl (33.0-37.0); MONO # 0.5 10*3/uL (0.1-1.0); MONO % 6.6 % (3.0-9.0); NEUT % 51.2 % (47.0-73.0); PLATELET COUNT AUTOMATED 404 10*3/uL (130-400); RED BLOOD COUNT 4.13 10*6/uL (4.50-5.90); RED CELL DISTRI WIDTH 12.3 % (0-14.5); WHITE BLOOD COUNT 7.7 10*3/uL (4.8-10.8)
[2017-12-29 06:29] LABS: BUN 8 mg/dl (7-24); CHLORIDE 107 mmol/L (98-107); POTASSIUM 3.6 mmol/L (3.5-5.1); SGOT/AST 37 IU/L (3-35); SGPT/ALT 50 U/L (12-78); SODIUM 143 mmol/L (136-145); TOTAL PROTEIN 6.9 gm/dL (6.4-8.2)
[2017-12-29 06:35] LABS: ALKALINE PHOSPHATASE 136 U/L (45-117); CREATININE 0.71 mg/dL (0.70-1.30)
[2017-12-30] VITALS: BP 163/99
[2017-12-30 06:15] LABS: BASO # 0.1 10*3/uL (0.0-0.1); BASO % 0.7 % (0.0-1.0); EOS # 0.2 10*3/uL (0.0-0.4); EOS % 2.4 % (1.0-4.0); HEMATOCRIT 32.2 % (42.0-52.0); LYMPH # 2.5 10*3/uL (1.3-4.4); LYMPH % 32.7 % (27.0-41.0); MEAN CELL VOLUME 85.6 fl (80.0-94.0); MEAN CORPUSCULAR HGB 29.3 pg (27.0-31.0); MEAN CORPUSCULAR HGB CONC 34.2 g/dl (33.0-37.0); MEAN PLATELET VOLUME 9.6 fl (9.6-12.3); MONO # 0.6 10*3/uL (0.1-1.0); MONO % 7.8 % (3.0-9.0); NEUT # 4.2 10*3/uL (2.3-7.9); PLATELET COUNT AUTOMATED 366 10*3/uL (130-400); RED BLOOD COUNT 3.76 10*6/uL (4.50-5.90); RED CELL DISTRI WIDTH 12.3 % (0-14.5); WHITE BLOOD COUNT 7.5 10*3/uL (4.8-10.8)
[2017-12-30 06:27] LABS: BUN 6 mg/dl (7-24); CHLORIDE 108 mmol/L (98-107); POTASSIUM 3.5 mmol/L (3.5-5.1); SODIUM 143 mmol/L (136-145)
[2017-12-30 08:00] VITALS: BP 149/83
[2017-12-30 12:00] VITALS: BP 176/94
[2017-12-30 16:00] VITALS: BP 153/77
[2017-12-30 20:00] VITALS: BP 169/86
[2017-12-31] VITALS: BP 146/83
[2017-12-31 08:00] VITALS: BP 158/90
[2017-12-31 12:00] VITALS: BP 152/88
[2017-12-31 16:00] VITALS: BP 162/82
[2017-12-31 20:00] VITALS: BP 165/81
[2018-01-01] VITALS: BP 161/84
[2018-01-01 08:00] VITALS: BP 164/88
[2018-01-01 12:00] VITALS: BP 160/86
[2018-01-01 16:00] VITALS: BP 147/84
[2018-01-01 20:00] VITALS: BP 146/80
[2018-01-02] VITALS: BP 140/80
[2018-01-02 06:48] LABS: BASO % 0.6 % (0.0-1.0); EOS # 0.3 10*3/uL (0.0-0.4); EOS % 3.4 % (1.0-4.0); HEMATOCRIT 31.1 % (42.0-52.0); HEMOGLOBIN 10.7 g/dl (14.0-18.0); LYMPH # 2.4 10*3/uL (1.3-4.4); LYMPH % 33.7 % (27.0-41.0); MEAN CELL VOLUME 85.4 fl (80.0-94.0); MEAN CORPUSCULAR HGB 29.4 pg (27.0-31.0); MEAN CORPUSCULAR HGB CONC 34.4 g/dl (33.0-37.0); MEAN PLATELET VOLUME 9.8 fl (9.6-12.3); MONO # 0.5 10*3/uL (0.1-1.0); MONO % 6.9 % (3.0-9.0); NEUT % 54.8 % (47.0-73.0); PLATELET COUNT AUTOMATED 308 10*3/uL (130-400); RED BLOOD COUNT 3.64 10*6/uL (4.50-5.90); RED CELL DISTRI WIDTH 12.5 % (0-14.5); WHITE BLOOD COUNT 7.3 10*3/uL (4.8-10.8)
[2018-01-02 07:22] LABS: BUN 7 mg/dl (7-24); CHLORIDE 106 mmol/L (98-107); CREATININE 0.65 mg/dL (0.70-1.30); POTASSIUM 3.6 mmol/L (3.5-5.1); SODIUM 142 mmol/L (136-145)
[2018-01-02 08:00] VITALS: BP 157/82
[2018-01-02 12:00] VITALS: BP 174/97
[2018-01-03] MEDS ORDERED: LISINOPRIL20 MG PO (15:51)
[2018-01-03] MEDS ORDERED: VITAMIN D-32000 UNI1 PO (15:54)
[2018-01-03] MEDS ORDERED: VANCOMYCIN2 GM/250 M IV (15:54)
[2018-01-03] MEDS ORDERED: INVANZ1 GM IV (15:54)
== END 2018-01-02 13:56 | disposition left against medical advice (07) | DRG 478 ==
LOC: ED 08:33 → EDHOLD 10:15 → 4E 10:15
PROVIDERS: Emergency Medicine; Family Medicine; Hospitalist
PROC: 0Q9R0ZZ Drainage of Left Toe Phalanx, Open Approach (ICD-10-PCS; principal; 2017-12-29)
PROC: 0QBR0ZX Excision of Left Toe Phalanx, Open Approach, Diagnostic (ICD-10-PCS; 2017-12-29)
PROC: 05H533Z Insertion of Infusion Device into Right Subclavian Vein, Percutaneous Approach (ICD-10-PCS; 2017-12-30)
DX: M86.072 Acute hematogenous osteomyelitis, left ankle and foot (principal); E44.0 Moderate protein-calorie malnutrition; E11.42 Type 2 diabetes mellitus with diabetic polyneuropathy; E11.621 Type 2 diabetes mellitus with foot ulcer; E11.65 Type 2 diabetes mellitus with hyperglycemia; M86.172 Other acute osteomyelitis, left ankle and foot; I50.32 Chronic diastolic (congestive) heart failure; L97.528 Non-pressure chronic ulcer of other part of left foot with other specified severity; L03.213 Periorbital cellulitis; L02.612 Cutaneous abscess of left foot; M86.672 Other chronic osteomyelitis, left ankle and foot; E11.69 Type 2 diabetes mellitus with other specified complication; E78.5 Hyperlipidemia, unspecified; L03.032 Cellulitis of left toe; D64.9 Anemia, unspecified; K21.9 Gastro-esophageal reflux disease without esophagitis; Z53.21 Procedure and treatment not carried out due to patient leaving prior to being seen by health care provider; F32.9 Major depressive disorder, single episode, unspecified; G47.00 Insomnia, unspecified; D47.3 Essential (hemorrhagic) thrombocythemia; E55.9 Vitamin D deficiency, unspecified; I11.0 Hypertensive heart disease with heart failure; Z68.26 Body mass index [BMI] 26.0-26.9, adult; Z82.3 Family history of stroke; Z82.49 Family history of ischemic heart disease and other diseases of the circulatory system; Z79.82 Long term (current) use of aspirin; Z79.84 Long term (current) use of oral hypoglycemic drugs; Z79.2 Long term (current) use of antibiotics; Z79.899 Other long term (current) drug therapy

== ENCOUNTER → 2017-12-28 | Outpatient (CLI) | payer OTHER ==
[~2017-12-28] MED LIST changes: +CIPROFLOXACIN750 MG PO; +LIPITOR80 MG PO; +LISINOPRIL20 MG PO; +LOPID600 M1 PO; +OMEPRAZOLE D/R20 MG PO; +TOUJEO SOL300 UNIT/1 SQ
== END | disposition home or self-care (01) ==
LOC: WOUNDCARE 00:32
DX: E11.621 Type 2 diabetes mellitus with foot ulcer (principal); L97.521 Non-pressure chronic ulcer of other part of left foot limited to breakdown of skin; L97.422 Non-pressure chronic ulcer of left heel and midfoot with fat layer exposed; L97.412 Non-pressure chronic ulcer of right heel and midfoot with fat layer exposed; E11.40 Type 2 diabetes mellitus with diabetic neuropathy, unspecified; E11.69 Type 2 diabetes mellitus with other specified complication; M86.9 Osteomyelitis, unspecified; E78.5 Hyperlipidemia, unspecified; I10 Essential (primary) hypertension; F12.90 Cannabis use, unspecified, uncomplicated

== ENCOUNTER 2018-01-02 16:21 | Inpatient (IN) | payer OTHER ==
[~2018-01-02] VITALS: Ht 167.6 cm; Wt 82.1 kg
[~2018-01-02 16:21] MED LIST changes: +CIPROFLOXACIN750 MG PO; +LIPITOR80 MG PO; +LISINOPRIL20 MG PO; +LOPID600 M1 PO; +OMEPRAZOLE D/R20 MG PO; +TOUJEO SOL300 UNIT/1 SQ
[2018-01-02 17:38] VITALS: BP 172/82
[2018-01-02 20:51] VITALS: BP 180/95
[2018-01-03] VITALS: BP 168/85
[2018-01-03 04:45] LABS: URINE AMPHETAMINES < 1000 (1000ng/ml); URINE BARBITURATES < 200 (200ng/ml); URINE BENZODIAZEPINES < 200 (200ng/ml); URINE CANNABINOIDS (THC) < 50 (50ng/ml); URINE COCAINE < 300 (300ng/ml); URINE METHADONE < 300 (300ng/ml); URINE OPIATES < 300 (300ng/ml)
[2018-01-03 04:51] LABS: URINE PHENCYCLIDINE < 25 (25ng/ml)
[2018-01-03 06:50] LABS: BASO # 0.1 10*3/uL (0.0-0.1); BASO % 0.7 % (0.0-1.0); EOS # 0.3 10*3/uL (0.0-0.4); EOS % 2.8 % (1.0-4.0); HEMATOCRIT 32.5 % (42.0-52.0); HEMOGLOBIN 10.9 g/dl (14.0-18.0); LYMPH # 2.2 10*3/uL (1.3-4.4); LYMPH % 24.3 % (27.0-41.0); MEAN CELL VOLUME 86.7 fl (80.0-94.0); MEAN CORPUSCULAR HGB 29.1 pg (27.0-31.0); MEAN CORPUSCULAR HGB CONC 33.5 g/dl (33.0-37.0); MEAN PLATELET VOLUME 10.1 fl (9.6-12.3); MONO # 0.6 10*3/uL (0.1-1.0); MONO % 6.5 % (3.0-9.0); NEUT # 5.8 10*3/uL (2.3-7.9); NEUT % 65.4 % (47.0-73.0); PLATELET COUNT AUTOMATED 324 10*3/uL (130-400); RED BLOOD COUNT 3.75 10*6/uL (4.50-5.90); RED CELL DISTRI WIDTH 12.8 % (0-14.5); WHITE BLOOD COUNT 8.9 10*3/uL (4.8-10.8)
[2018-01-03 07:08] LABS: ALBUMIN 3.2 gm/dl (3.1-4.5); ALKALINE PHOSPHATASE 211 U/L (45-117); BUN 6 mg/dl (7-24); CHLORIDE 106 mmol/L (98-107); CREATININE 0.76 mg/dL (0.70-1.30); PHOSPHOROUS 2.9 mg/dL (2.5-4.9); POTASSIUM 3.7 mmol/L (3.5-5.1); SGOT/AST 49 IU/L (3-35); SGPT/ALT 57 U/L (12-78); SODIUM 142 mmol/L (136-145); TOTAL PROTEIN 7.1 gm/dL (6.4-8.2)
[2018-01-03 08:00] VITALS: BP 170/90
[2018-01-03 12:00] VITALS: BP 152/80
[2018-01-03] MEDS ORDERED: LISINOPRIL20 MG PO (15:51)
[2018-01-03] MEDS ORDERED: VANCOMYCIN2 GM/250 M IV (15:54)
[2018-01-03] MEDS ORDERED: VITAMIN D-32000 UNI1 PO (15:54)
[2018-01-03] MEDS ORDERED: INVANZ1 GM IV (15:54)
[2018-01-03 16:00] VITALS: BP 163/93
== END 2018-01-03 18:00 | DRG 540 ==
LOC: 5E 16:21
PROVIDERS: Family Medicine
DX: M86.072 Acute hematogenous osteomyelitis, left ankle and foot (principal); E44.0 Moderate protein-calorie malnutrition; E11.42 Type 2 diabetes mellitus with diabetic polyneuropathy; E11.621 Type 2 diabetes mellitus with foot ulcer; I50.32 Chronic diastolic (congestive) heart failure; I11.0 Hypertensive heart disease with heart failure; E11.69 Type 2 diabetes mellitus with other specified complication; K21.9 Gastro-esophageal reflux disease without esophagitis; F32.9 Major depressive disorder, single episode, unspecified; Z79.4 Long term (current) use of insulin; E78.5 Hyperlipidemia, unspecified; M19.90 Unspecified osteoarthritis, unspecified site; E78.1 Pure hyperglyceridemia; E55.9 Vitamin D deficiency, unspecified; D64.9 Anemia, unspecified; L97.529 Non-pressure chronic ulcer of other part of left foot with unspecified severity; L03.032 Cellulitis of left toe; G47.00 Insomnia, unspecified; R74.0 Nonspecific elevation of levels of transaminase and lactic acid dehydrogenase [LDH]; Z82.3 Family history of stroke; Z82.49 Family history of ischemic heart disease and other diseases of the circulatory system; Z79.84 Long term (current) use of oral hypoglycemic drugs; Z79.899 Other long term (current) drug therapy

== ENCOUNTER → 2018-06-26 | Outpatient (CLI) | payer OTHER ==
[~2018-06-26] MED LIST changes: +INVANZ1 GM IV; +VANCOMYCIN2 GM/250 M IV; +VITAMIN D-32000 UNI1 PO
== END | disposition home or self-care (01) ==
LOC: WOUNDCARE 11:48
DX: E11.621 Type 2 diabetes mellitus with foot ulcer (principal); L97.512 Non-pressure chronic ulcer of other part of right foot with fat layer exposed; E11.40 Type 2 diabetes mellitus with diabetic neuropathy, unspecified; E11.69 Type 2 diabetes mellitus with other specified complication; M86.8X8 Other osteomyelitis, other site; I10 Essential (primary) hypertension; E78.5 Hyperlipidemia, unspecified

== ENCOUNTER → 2018-09-06 | Outpatient (CLI) | payer OTHER | END | disposition home or self-care (01) | LOC: WOUNDCARE 02:23 | DX: E11.621 Type 2 diabetes mellitus with foot ulcer (principal); L97.512 Non-pressure chronic ulcer of other part of right foot with fat layer exposed; E11.69 Type 2 diabetes mellitus with other specified complication; M86.9 Osteomyelitis, unspecified; E11.40 Type 2 diabetes mellitus with diabetic neuropathy, unspecified; I10 Essential (primary) hypertension; E78.5 Hyperlipidemia, unspecified; F12.90 Cannabis use, unspecified, uncomplicated; Z79.4 Long term (current) use of insulin ==

== ENCOUNTER 2019-02-13 09:58 | Inpatient (IN) | payer OTHER ==
[~2019-02-13] VITALS: Ht 167.6 cm; Wt 77.6 kg
--- NOTE | ~2019-02-13 | WRIGHTHP ---
[place], [place] PATIENT HISTORY AND PHYSICAL EXAM NAME: VIPIN QUINONES UNIT #: [id number] ROOM: 502 DOCTOR: AR UREÑA DPM BIRTHDATE: [birth year] DOS: 02/14/2019 LOWER EXTREMITY PHYSICAL EXAM: VASCULAR: He has palpable pulses 2/4 DP and PT. Good cap refill time. Noninvasive studies are done demonstrating adequate perfusion to his left lower extremity. NEUROLOGIC: He has complete loss of protective sensation secondary to diabetic peripheral neuropathy. DERMATOLOGIC: He has an open wound approximately 1 cm in diameter. It is full thickness in nature travels down to the bone. There is secondary surrounding erythema, cellulitis, edema of the left foot. Bone does probe to bone. MUSCULOSKELETAL: He has a grossly unstable first ray. He has a gastroc equinus deformity with contracture of the posterior muscle group on the left. ORTHOPEDIC: Exam is consistent with osteomyelitis of the left foot. AR UREÑA DPM CM:HISPHYS:PATIENT HISTORY AND PHYSICAL EXAMINATION 1326 1401 AR UREÑA DPM 02/14/19 1403 interface
--- NOTE | ~2019-02-13 | CON ---
[place], [place] REPORT OF CONSULTATION NAME: VIPIN QUINONES UNIT #: [id number] ROOM: 532 DOCTOR: AR UREÑA DPM BIRTHDATE: [birth year] DATE: 02/13/19 ADDENDUM TO RESIDENT CONSULT: I reviewed with the resident and I am in agreement. AR UREÑA DPM CM:CONSTR:REPORT OF CONSULTATION 1038 03/21/19 1419 AMY DOS SANTOS MIS.LLR
--- NOTE | ~2019-02-13 | O ---
[place], [place] OPERATIVE NOTE NAME: VIPIN QUINONES UNIT #: [id number] ROOM: [facility] DOCTOR: AR UREÑA DPM BIRTHDATE: [birth year] DOS: 02/14/2019 SURGEON: Ar Ureña DPM [facility] [place]: 1. Dr. Anthony Schmidt. 2. Kyler Mitchell, PGY1 PREOPERATIVE DIAGNOSIS: Osteomyelitis, left forefoot second metatarsal. POSTOPERATIVE DIAGNOSIS: Osteomyelitis, left forefoot second metatarsal. PROCEDURES: 1. Incision and drainage with bone biopsy, bone debridement of left forefoot. 2. Application of negative pressure therapy, wound VAC. The patient was seen in the preop holding area. Appropriate site marking was performed. The patient concurred with a recommended treatment, site marking and perioperative management. With this in mind, he was brought in the OR and kept on the cart and anesthesia was achieved. At this point in time, his left leg was prepped and draped in sterile fashion. At this time, everyone in the room did a time out, agreed to the time-out. The appropriate timeout was performed, everyone concurred with it. PROCEDURE #1: INCISION AND DRAINAGE, BONE DEBRIDEMENT AND BONE BIOPSY OF THE LEFT SECOND METATARSAL: Through the open wound, hemostat was placed into the wound in a folded space and incision and drainage was performed and at this point in time, soft tissue was debrided. This was extended to the dorsal portion, were connected dorsally and this incision was opened up. At this time, aggressive debridement of soft tissue was performed, taking the soft tissue for biopsy as well as cultures. The cultures consist of Gram stain, aerobic, anaerobic, fungal acid fast. Next, at this time, a rongeur was used for debridement of the second metatarsal. Bone was sent for Gram stain, aerobic, anaerobic, fungal acid fast as well as biopsy. All the necrotic tissue was excised and removed in total through the soft tissue and bone. At this time, irrigation was applied. The wound was irrigated significantly. PROCEDURE #2: APPLICATION OF NEGATIVE PRESSURE THERAPY: At this time with wound cleansed and all necrotic tissues were resected, negative pressure therapy was applied and it was applied and set to 200 continuous. Dorsal wound then was closed primarily as this was irrigated and flushed out. All necrotic tissue was removed and we felt that the infection was under control. We left the plantar wound open where the negative pressure therapy VAC was applied. Surgical wounds were dressed with Adaptic, 4 x 4s, Viky in a sterile compressive fashion. He tolerated the procedure and anesthesia well, left the OR with vital signs stable and vascular status intact. [place], [place] OPERATIVE NOTE NAME: VIPIN QUINONES UNIT #: [id number] ROOM: [facility] DOCTOR: AR UREÑA DPM BIRTHDATE: [birth year] AR UREÑA DPM CM:OPRECORD:OPERATIVE NOTE 1326 1402 AR UREÑA DPM 02/14/19 1634 interface
--- NOTE | ~2019-02-13 | CON ---
[place], [place] REPORT OF CONSULTATION NAME: VIPIN QUINONES UNIT #: [id number] ROOM: 532 DOCTOR: KAM BELTRANSIDDHARTHA BIRTHDATE: [birth year] DOS: 02/16/2019 HISTORY: A 43-year-old patient who presented with chief complaint of uncontrolled diabetes mellitus, diarrhea, several courses of osteomyelitis on antibiotic therapy, have been asked for assessment of the patient regarding the diarrhea, while the diarrhea character has been with alterations, regular bowel movement to diarrhea several times a day and the patient actively undergoing diabetic foot ulcer. The patient is known to have hemoglobin A1c of 11.3; at least for the past 5 years, he has been diagnosed with type 2 diabetes. He has been noncompliant and is on management. His CBC, white blood cell was 13, H and H of 13 and 40. INR was 0.9. Lower extremity vasculatures studies, no evidence of obstruction. C. diff has been sent out and negative and wound management clinic is following. His white blood cell responded to antibiotic therapy, which was vancomycin and Zosyn and that is for the management of osteomyelitis. Latest vancomycin trough was 17.3. Blood cultures remain negative. His comprehensive metabolic panel essentially unremarkable with GFR greater than 60 surprisingly now. PAST MEDICAL HISTORY: Diabetes mellitus, diabetic foot noncompliant, systemic hypertension, hypertriglyceridemia, osteomyelitis, and depression, all has been recognized. PAST SURGICAL HISTORY: Podiatric debridement of the diabetic foot ulcer. Bone biopsy with proof of osteomyelitis. FAMILY HISTORY: Noncontributory. ALLERGIES: No known medications. MEDICATIONS: List reviewed. The patient has been on metformin extended release; however, apparently attention has been made to cause of etiology of diarrhea. REVIEW OF SYSTEMS: HEENT: In general, denies double vision, blurred vision. RESPIRATORY: Denies shortness of breath. CARDIOVASCULAR: Denies chest pain. DIGESTIVE SYSTEM: Diarrhea, changes in bowel habits. PHYSICAL EXAMINATION: VITAL SIGNS: Stable, nondistressed, nontoxic. HEENT: Head normocephalic, nontraumatic. Mouth and buccal mucosa benign. NECK: Supple, no thyromegaly, no cervical lymphadenopathy. CHEST: Symmetric anatomy, equal expansion. No wheeze, no rhonchi. HEART: Normal sinus rhythm. No gallop, no murmur. ABDOMEN: Soft. No hepato-organomegaly. Bowel sounds present. EXTREMITIES: Left foot wrapped status post debridement. NEUROLOGIC: Otherwise, alert and oriented with numbness of lower extremities bilaterally. [place], [place] REPORT OF CONSULTATION NAME: VIPIN QUINONES UNIT #: [id number] ROOM: [facility] DOCTOR: SIDDHARTHA HUMPHREY MD BIRTHDATE: [birth year] IMPRESSION: Diarrhea, etiology of diarrhea to be determined, could be secondary to antibiotic, could be secondary to multiple etiologies; however, irritable bowel syndrome in him would be of concern. Family history is ambiguous as far as the roots of the family and has to be eventually screened at this age since he has had chronic diarrhea. Other adjunctive diagnoses, inflammatory bowel disease are still on the differential diagnosis. Otherwise, as dictated in past medical and surgical history, hyperglycemia uncontrolled, hypercholesterolemia and peripheral vascular disease and otherwise as indicated including osteomyelitis which requires chronic antibiotic therapy. ADDENDUM At the time of evaluation, his white blood cell was 13, H and H of 13 and 40, borderline anemia. Platelet was within normal limits. His lactic acid was within normal limits. INR 0.9. Comprehensive metabolic panel. Glucose elevated repeatedly with INR of greater than 11. Liver function test is normal. SIDDHARTHA HUMPHREY MD CM:CONSTR:REPORT OF CONSULTATION 1555 02/28/19 0721 interface
--- NOTE | ~2019-02-13 | WRIGHTHP ---
[place], [place] PATIENT HISTORY AND PHYSICAL EXAM [id number] UN[facility] #: [id number] ROOM: 502 DOCTOR: AR UREÑA DPM BIRTHDATE: [birth year] DOS: 02/14/2019 INDICATION NOTE The patient was seen for diabetic foot ulcer with cellulitis, possible osteomyelitis of the left foot. At this time, he was seen except for surgery for incision and drainage, bone debridement, bone biopsy of the left forefoot. He is aware of pros, cons, risks, benefits, undercorrection, recurrence, numbness, infection. The patient relates a history that he has had a previous infection before, where he has had hyperbaric oxygen and incision and drainage and bone debridement performed with a PICC line. He understands he is at risk looking to his right foot. He has a distal ulceration of his third toe. He also has a pre-ulceration on his sub-second and third metatarsal on his right as well, also on his right great toe. He has an ulceration in the area consistent with an interphalangeal joint ulcer. There are no cardinal signs of infection, drainage, undermining or tunneling noted at those sites. With this in mind, he understands he is at risk. I discussed with him at stabilizing his foot at this point in time, can control the infection and get things under control and then at that point in time re-evaluate him and biomechanically stabilizing his feet, so he does not keep getting recurrent ulcers. With this in mind, he agreed to consent. He agreed with site marking. He agreed with the perioperative management needed to get this wound and infection under control and healed. AR UREÑA DPM CM:HISPHYS:PATIENT HISTORY AND PHYSICAL EXAMINATION 1326 1400 AR UREÑA DPM 02/14/19 1524 interface
[2019-02-13 09:59] VITALS: BP 143/97
[2019-02-13 10:32] LABS: BASO % 0.3 % (0.0-1.0); EOS # 0.1 10*3/uL (0.0-0.4); EOS % 0.4 % (1.0-4.0); HEMATOCRIT 40.1 % (42.0-52.0); HEMOGLOBIN 13.8 g/dl (14.0-18.0); LYMPH # 1.5 10*3/uL (1.3-4.4); MEAN CELL VOLUME 90.5 fl (80.0-94.0); MEAN CORPUSCULAR HGB 31.2 pg (27.0-31.0); MEAN CORPUSCULAR HGB CONC 34.4 g/dl (33.0-37.0); MEAN PLATELET VOLUME 10.4 fl (9.6-12.3); MONO % 7.3 % (3.0-9.0); NEUT # 10.9 10*3/uL (2.3-7.9); NEUT % 80.6 % (47.0-73.0); PLATELET COUNT AUTOMATED 345 10*3/uL (130-400); RED BLOOD COUNT 4.43 10*6/uL (4.50-5.90); WHITE BLOOD COUNT 13.5 10*3/uL (4.8-10.8)
[2019-02-13 10:42] LABS: ACT PARTIAL THROMBO TIME 25.7 SECONDS (20.0-32.1); INTERNATIONAL NORM RATIO 0.9 (2.0-3.5)
[2019-02-13 10:45] LABS: ALBUMIN 3.7 gm/dl (3.1-4.5); ALKALINE PHOSPHATASE 113 U/L (45-117); BUN 14 mg/dl (7-24); CHLORIDE 100 mmol/L (98-107); CREATININE 1.22 mg/dL (0.70-1.30); POTASSIUM 4.2 mmol/L (3.5-5.1); SGOT/AST 12 IU/L (3-35); SGPT/ALT 24 U/L (12-78); SODIUM 134 mmol/L (136-145); TOTAL PROTEIN 8.6 gm/dL (6.4-8.2)
[2019-02-13 11:38] VITALS: BP 140/80
--- NOTE | 2019-02-13 12:09 | NUR ---
PT POSITIONED FOR COMFORT WITH CRACKERS AND FLUIDS PROVIDED PER PT REQUEST,NO ACUTE DISTRESS NOTED,SAFETY PRECUATIONS INTACT AND CALL LIGHT WITHIN REACH.
[2019-02-13 12:50] VITALS: BP 126/72
--- NOTE | 2019-02-13 12:50 | NUR ---
Time: 1250 A 39 year old MALE admitted to 5E under services of PAOLA MUNOZ DO. Pt. arrived via bed from ER. Chief complaint: BILATERAL DIABETIC FOOT ULCERS. TATIANA RAMOS
[2019-02-13] MEDS ORDERED: LISINOPRIL20 MG PO (13:35)
--- NOTE | 2019-02-13 13:47 | NUR ---
DR AGUILAR NOTIFIED OF NEW [id number] [facility]
--- NOTE | 2019-02-13 13:50 | NUR ---
HOME MEDICATIONS RECONCILED AT BEDSIDE WITH PT AND HOME MEDICATION LIST.
--- NOTE | 2019-02-13 14:00 | NUR ---
NOTIFIED KEIRA LAL CNP HOME MEDS WERE RECONCILED.
[2019-02-13 16:00] VITALS: BP 112/59
--- NOTE | 2019-02-13 17:28 | NUR ---
NOTIFIED DR HENRIQUEZ'S ANSWERING SERVICE OF NEW CONSULT FOR LEFT FOOT WOUND INFECTION.
--- NOTE | 2019-02-13 18:16 | NUR ---
DR HAQUE ROUNDED AND SEEN PT.
[2019-02-13 20:00] VITALS: BP 130/76
--- NOTE | 2019-02-13 22:07 | NUR ---
TYLENOL GIVEN FOR 9 OUT OF 10 LEFT FOOT PAIN. WILL MONITOR.
--- NOTE | 2019-02-13 23:52 | NUR ---
24 HR chart check completed.
[2019-02-14] VITALS (10 sets, daily range): BP systolic 122–169; BP diastolic 74–107
[2019-02-14 06:32] LABS: BASO % 0.3 % (0.0-1.0); EOS # 0.1 10*3/uL (0.0-0.4); EOS % 1.1 % (1.0-4.0); HEMATOCRIT 37.2 % (42.0-52.0); HEMOGLOBIN 12.5 g/dl (14.0-18.0); LYMPH # 1.5 10*3/uL (1.3-4.4); LYMPH % 13.1 % (27.0-41.0); MEAN CELL VOLUME 90.3 fl (80.0-94.0); MEAN CORPUSCULAR HGB 30.3 pg (27.0-31.0); MEAN CORPUSCULAR HGB CONC 33.6 g/dl (33.0-37.0); MEAN PLATELET VOLUME 10.4 fl (9.6-12.3); MONO # 0.8 10*3/uL (0.1-1.0); MONO % 7.4 % (3.0-9.0); NEUT # 8.8 10*3/uL (2.3-7.9); NEUT % 77.8 % (47.0-73.0); PLATELET COUNT AUTOMATED 291 10*3/uL (130-400); RED BLOOD COUNT 4.12 10*6/uL (4.50-5.90); RED CELL DISTRI WIDTH 12.1 % (0-14.5); WHITE BLOOD COUNT 11.3 10*3/uL (4.8-10.8)
[2019-02-14 06:39] LABS: ALBUMIN 3.3 gm/dl (3.1-4.5); BUN 15 mg/dl (7-24); CHLORIDE 104 mmol/L (98-107); CREATININE 1.11 mg/dL (0.70-1.30); POTASSIUM 4.2 mmol/L (3.5-5.1); SGOT/AST 13 IU/L (3-35); SGPT/ALT 19 U/L (12-78); SODIUM 137 mmol/L (136-145); TOTAL PROTEIN 7.7 gm/dL (6.4-8.2)
[2019-02-14 06:46] LABS: ALKALINE PHOSPHATASE 109 U/L (45-117); CHOLESTEROL 98 mg/dL (<200); FREE T4 1.22 ng/dl (0.76-1.46); HDL CHOLESTEROL 36 mg/dl (40-60); LDL CHOLESTEROL 39 mg/dL (9-159); PHOSPHOROUS 2.9 mg/dL (2.5-4.9); TRIGLYCERIDES 117 mg/dl (<150); VLDL CHOLESTEROL 23 mg/dL (6-40)
--- NOTE | 2019-02-14 07:34 | NUR ---
VIPIN QUINONES [id number] Please refer to the physician's history and physical for past medical history, comorbid conditions, and allergies. Diagnosis: DIABETIC FOOT INFECTION Mark Score: 22,LOW OR NO RISK WOUND DESCRIPTIONS: Wound Number: 1 Location of the wound: right great toe Thickness: Full Size: 0.6cm x 1.4cm x <0.1cm Tunneling: none Undermining: none Sinus Tract: none Presence of Exudate: none Amount: None Color: Brown Odor: None Periwound Skin Appearance: Normal Wound edges: closed Pain (associated with wound): none at time of assessment How does patient state this happened: Patient stated this is an ongoing issue which he treats himself at home he stated he did follow with Dr. Montiel in the wound care center before but hasn't needed wound care until tuesday Wound Number: 2 Location of the wound: right 2nd toe Type of wound: Thickness: Partial Size: 0.3cm x 0.4cm x <0.1cm Tunneling: none Undermining: none Sinus Tract: none Presence of Exudate: Amount: None Color: Red Odor: None Periwound Skin Appearance: Normal Wound edges: approximated Pain (associated with wound): none at time of assessment How does patient state this happened: Patient stated this is an ongoing issue which he treats himself at home he stated he did follow with Dr. Montiel in the wound care center before but hasn't needed wound care until tuesday. Wound Number: 3 Location of the wound: left great toe Type of wound: Thickness: Partial Size: 0.2cm x 0.3cm x 0.3cm Tunneling: none Undermining: none Sinus Tract: none Presence of Exudate: Sanguineous Amount: Light Color: Red Odor: None Periwound Skin Appearance: Normal Wound edges: approximated Pain (associated with wound): none at time of assessment How does patient state this happened: Patient stated this is an ongoing issue which he treats himself at home he stated he did follow with Dr. Montiel in the wound care center before but hasn't needed wound care until tuesday. Wound Number: 4 Location of the wound: left plantar aspect of foot Type of wound: Thickness: Full Size: 0.5cm x 0.5cm x 1.7cm Tunneling: none Undermining: none Sinus Tract: none Presence of Exudate: Sanguineous Amount: Light Color: Red Odor: None Periwound Skin Appearance: Erythema Wound edges: approximated Pain (associated with wound): tender to touch How does patient state this happened: Patient stated this is an ongoing issue which he treats himself at home he stated he did follow with Dr. Montiel in the wound care center before but hasn't needed wound care until tuesday. Surface the patient is resting on: Isoflex SKIN PREVENTION RECOMMENDATION: 1. Pressure redistribution support surface as appropriate 2. Elevate heels 3. Remove boots/TEDS every shift and reapply 4. Head of bed 30 degrees as tolerated 5. Assess nutrition and hydration 6. Manage moisture 7. Avoid the use of containment devices while in bed 8. Use absorptive products on surfaces limit layers of linens on bed 9. Turn and reposition every 1-2 hours in bed and every 1 hour in chair as tolerated 10. Weight shifts every 15 minutes while up in chair 11. Offloading with pillows or device to keep heels elevated off bed 12. Monitor skin at least every shift 13. Inspect under medical devices twice a day WOUND TREATMENT RECOMMENDATIONS: X-ray suggests MRI if suspicion for bone infection. Podiatry already on consult and patient is scheduled this afternoon for a procedure to the left plantar aspect of foot await post op for wound care orders. Heel raiser pro boots while in bed.
[2019-02-14 08:07] LABS: VITAMIN D, 25-HYDROXY 26.3 ng/mL (30-100)
--- NOTE | 2019-02-14 11:10 | NUR ---
Retail Consultant in to talk to patient. Patient states lives at HOME with ALONE. There are NO steps in the home. Physician: [facility] Home health services: NONE Patient's level of ADLs: INDEPENDENT Patient has working utilities: YES DME: NONE Follow-up physician's appointment after d/c: WILL BE MADE BY HOSPITALIST NURSE DIRECTOR ON DISCHARGE Does patient want to access PORTAL?: NO Discharge plan PT STATES HE LIVES HOME ALONE AND IS INDEPENDENT IN CARE. STATES HE WILL WAIT TO SEE IF HE HAS NEEDS ON DISCHARGE AND WILL DECIDE THEN IF HE WANTS HOME HEALTH. NO OTHER NEEDS AT THIS TIME. WILL CONTINUE TO FOLLOW. PT STATES HE WILL HAVE A RIDE HOME. MIKE NICHOLE
--- NOTE | 2019-02-14 15:03 | NUR ---
ZOFRAN 4MG IV GIVEN FOR NAUSEA AND VOMITING.
--- NOTE | 2019-02-14 16:00 | NUR ---
ZOFRAN EFFECTIVE PER PATIENT.
--- NOTE | 2019-02-14 22:03 | NUR ---
TORADOL GIVEN FOR 8 OUT OF TEN PAIN IN LEFT FOOT. WILL CONTINUE TO ASSESS.
--- NOTE | 2019-02-14 23:00 | NUR ---
TORADOL EFFECTIVE FOR PAIN. PT RESTING COMFORTABLY.
[2019-02-15] VITALS: BP 141/92
[2019-02-15 08:00] VITALS: BP 129/80
--- NOTE | 2019-02-15 11:25 | NUR ---
PT DENIES NEEDS AT HOME UNLESS HE HAS TO GET IV ANTIBIOTICS. WILL CONTINUE TO FOLLOW AND MAKE ARRANGEMENTS ACCORDING TO MD ORDERS.
--- NOTE | 2019-02-15 11:27 | NUR ---
DR HUMPHREY NOTIFIED OF NEW CONSULT: ORDERED C DIFF PANEL.
[2019-02-15 12:00] VITALS: BP 126/75
[2019-02-15 15:50] LABS: BASO % 0.5 % (0.0-1.0); EOS # 0.2 10*3/uL (0.0-0.4); HEMATOCRIT 34.3 % (42.0-52.0); HEMOGLOBIN 11.3 g/dl (14.0-18.0); LYMPH # 1.5 10*3/uL (1.3-4.4); LYMPH % 18.9 % (27.0-41.0); MEAN CELL VOLUME 91.7 fl (80.0-94.0); MEAN CORPUSCULAR HGB 30.2 pg (27.0-31.0); MEAN CORPUSCULAR HGB CONC 32.9 g/dl (33.0-37.0); MEAN PLATELET VOLUME 10.1 fl (9.6-12.3); MONO # 0.8 10*3/uL (0.1-1.0); MONO % 9.6 % (3.0-9.0); NEUT # 5.3 10*3/uL (2.3-7.9); NEUT % 67.5 % (47.0-73.0); PLATELET COUNT AUTOMATED 314 10*3/uL (130-400); RED BLOOD COUNT 3.74 10*6/uL (4.50-5.90); RED CELL DISTRI WIDTH 11.9 % (0-14.5); WHITE BLOOD COUNT 7.9 10*3/uL (4.8-10.8)
[2019-02-15 16:00] VITALS: BP 150/91
[2019-02-15 20:00] VITALS: BP 145/78
[2019-02-16] VITALS: BP 128/75
--- NOTE | 2019-02-16 01:32 | NUR ---
RESTORIL GIVEN ORDERED FOR COMPLAINTS OF INSOMNIA. WILL REASSESS.
--- NOTE | 2019-02-16 01:59 | NUR ---
24 HR chart check completed.
--- NOTE | 2019-02-16 02:08 | NUR ---
PATIENT MEDICATED WITH ZOFRAN PER PRN ORDER FOR C/O NAUSEA. SEE EMAR. REINFORCED USE OF CALL LIGHT.
[2019-02-16 06:31] LABS: BASO % 0.4 % (0.0-1.0); EOS # 0.4 10*3/uL (0.0-0.4); EOS % 4.6 % (1.0-4.0); HEMATOCRIT 35.3 % (42.0-52.0); HEMOGLOBIN 11.7 g/dl (14.0-18.0); LYMPH # 1.9 10*3/uL (1.3-4.4); LYMPH % 23.5 % (27.0-41.0); MEAN CELL VOLUME 90.1 fl (80.0-94.0); MEAN CORPUSCULAR HGB 29.8 pg (27.0-31.0); MEAN CORPUSCULAR HGB CONC 33.1 g/dl (33.0-37.0); MEAN PLATELET VOLUME 10.3 fl (9.6-12.3); MONO % 11.5 % (3.0-9.0); NEUT % 59.8 % (47.0-73.0); PLATELET COUNT AUTOMATED 309 10*3/uL (130-400); RED BLOOD COUNT 3.92 10*6/uL (4.50-5.90); RED CELL DISTRI WIDTH 11.9 % (0-14.5); WHITE BLOOD COUNT 8.3 10*3/uL (4.8-10.8)
[2019-02-16 08:00] VITALS: BP 150/90
--- NOTE | 2019-02-16 08:18 | NUR ---
PHYSICAL THERAPY Approached patient, discussed 50 % partial heel weigth bearing with fracture boot. There is no fracture boot in room and patient reports he is not permitted weight beairng and is getting wound vac. Discussed with nurse and will wait until MD rounds this date to clarify orders. Thank you for this referral. Madeleine Reyes,PT
--- NOTE | 2019-02-16 10:16 | NUR ---
PHYSICAL THERAPY CAse dicussed During discahrge planning. power plant operators supervisor, Serenity Alfaro contacted podiatry for wound verifications and inquired about WB status and fracture boot clarifications:patient to be NWB LLE and no fx boot. Please see Oscar fernando for directed phone conversation. Thank you. Madeleine Reyse,PT
--- NOTE | 2019-02-16 10:16 | NUR ---
Spoke with Dr. Young about a wound vac being placed today he stated to have the supplies ready. Also asked for clarification on the weight bearing status and he stated nmb to left lower extremity and he also stated no fracture boot at this time because it will promote him to walk on it and they dont want that at that time they want him nwb.
--- NOTE | 2019-02-16 11:29 | NUR ---
PT STILL UNDECIDED ON WHAT HE IS GOING TO DO ON DISCHARGE. STATES IT ALL DEPENDS IF HE NEEDS IV ANTIBIOTICS. WILL CONTINUE TO FOLLOW.
--- NOTE | 2019-02-16 11:56 | NUR ---
PHYSICAL THERAPY PAtient with podiatry and dressing changes at this time. Madeleine Reyes,PT
[2019-02-16 12:00] VITALS: BP 160/98
--- NOTE | 2019-02-16 12:19 | NUR ---
MORPHINE GIVEN FOR C/O LT FOOT PAIN. WILL MONITOR.
--- NOTE | 2019-02-16 13:44 | NUR ---
PHYSICAL THERAPY Patient evaluated on 5, full evaluation to follow. Continue with PT as per plan of care with fall, NWB LLE, wound vac and acute debility precautions. Home with home health RN, PT and aide rohann recommended. PAtient is moderate complexity via chart review, tests and evaluation: 43182. Thank you for this referral. Madeleine Reyes,PT
[2019-02-16 15:11] LABS: ACID FAST SPEC PROCESSING Tissue Grinding (.)
[2019-02-16 16:00] VITALS: BP 142/88
[2019-02-16 20:00] VITALS: BP 134/78
[2019-02-17] VITALS: BP 140/75
[2019-02-17 07:24] LABS: BUN 11 mg/dl (7-24)
[2019-02-17 07:26] LABS: CREATININE 0.92 mg/dL (0.70-1.30)
[2019-02-17 08:00] VITALS: BP 124/74
[2019-02-17 12:00] VITALS: BP 122/88
[2019-02-17 16:00] VITALS: BP 139/78
[2019-02-17 20:00] VITALS: BP 136/82
--- NOTE | 2019-02-17 23:58 | NUR ---
PATIENT MEDICATED WITH RESTORIL FOR COMPLAINTS OF INSOMNIA. WILL CONTINUE TO MONITOR. CALL LIGHT IN REACH.
[2019-02-18] VITALS: BP 124/76
[2019-02-18 06:58] LABS: BASO % 0.5 % (0.0-1.0); EOS # 0.5 10*3/uL (0.0-0.4); EOS % 5.6 % (1.0-4.0); HEMATOCRIT 38.6 % (42.0-52.0); HEMOGLOBIN 12.8 g/dl (14.0-18.0); LYMPH # 2.4 10*3/uL (1.3-4.4); LYMPH % 28.9 % (27.0-41.0); MEAN CELL VOLUME 89.8 fl (80.0-94.0); MEAN CORPUSCULAR HGB 29.8 pg (27.0-31.0); MEAN CORPUSCULAR HGB CONC 33.2 g/dl (33.0-37.0); MEAN PLATELET VOLUME 9.9 fl (9.6-12.3); MONO # 0.7 10*3/uL (0.1-1.0); NEUT # 4.6 10*3/uL (2.3-7.9); NEUT % 56.1 % (47.0-73.0); PLATELET COUNT AUTOMATED 399 10*3/uL (130-400); RED CELL DISTRI WIDTH 11.9 % (0-14.5); WHITE BLOOD COUNT 8.2 10*3/uL (4.8-10.8)
[2019-02-18 07:11] LABS: BUN 12 mg/dl (7-24); CHLORIDE 106 mmol/L (98-107); CREATININE 0.89 mg/dL (0.70-1.30); POTASSIUM 3.7 mmol/L (3.5-5.1); SODIUM 139 mmol/L (136-145)
[2019-02-18 08:00] VITALS: BP 135/82
[2019-02-18 12:00] VITALS: BP 136/88
--- NOTE | 2019-02-18 13:21 | NUR ---
PER DR HUMPHREY NPO AT MIDNIGHT, COLO PREP AND COLO TOMORROW.
--- NOTE | 2019-02-18 14:32 | NUR ---
PT REFUSING COLONOSCOPY TOMORROW. DR HUMPHREY MADE AWARE.
[2019-02-18 16:00] VITALS: BP 143/89
--- NOTE | 2019-02-18 17:35 | NUR ---
PT STATES HE HAS A HEADACHE RATED AT A 7. PRN LEFTY BRUNO AT THIS TIME. WILL MONITOR FOR EFFECTIVENESS.
[2019-02-18 20:00] VITALS: BP 135/84
[2019-02-19] VITALS: BP 130/79
--- NOTE | 2019-02-19 02:49 | NUR ---
24 HR chart check completed.
[2019-02-19 07:12] LABS: BASO % 0.5 % (0.0-1.0); EOS # 0.4 10*3/uL (0.0-0.4); EOS % 4.8 % (1.0-4.0); HEMATOCRIT 36.4 % (42.0-52.0); HEMOGLOBIN 11.9 g/dl (14.0-18.0); LYMPH # 1.9 10*3/uL (1.3-4.4); LYMPH % 26.2 % (27.0-41.0); MEAN CELL VOLUME 90.5 fl (80.0-94.0); MEAN CORPUSCULAR HGB 29.6 pg (27.0-31.0); MEAN CORPUSCULAR HGB CONC 32.7 g/dl (33.0-37.0); MEAN PLATELET VOLUME 9.8 fl (9.6-12.3); MONO # 0.6 10*3/uL (0.1-1.0); MONO % 7.7 % (3.0-9.0); NEUT # 4.4 10*3/uL (2.3-7.9); PLATELET COUNT AUTOMATED 359 10*3/uL (130-400); RED BLOOD COUNT 4.02 10*6/uL (4.50-5.90); RED CELL DISTRI WIDTH 11.9 % (0-14.5); WHITE BLOOD COUNT 7.4 10*3/uL (4.8-10.8)
[2019-02-19 07:28] LABS: BUN 12 mg/dl (7-24); CHLORIDE 105 mmol/L (98-107); CREATININE 0.93 mg/dL (0.70-1.30); POTASSIUM 3.6 mmol/L (3.5-5.1); SODIUM 138 mmol/L (136-145)
[2019-02-19 08:00] VITALS: BP 122/84
--- NOTE | 2019-02-19 08:08 | NUR ---
Spoke with Dr. Vicente he stated to have the supplies in the wound and he will change the dressing later on today.
--- NOTE | 2019-02-19 10:33 | NUR ---
SPOKE TO FRANCESCO AT [facility] ABOUT WOUND VAC FORM NEEDING FILLED OUT AND SIGNED BY . FAXED FORM TO OFFICE AND SHE WILL GET IT FILLED OUT AND SIGNED. WILL CONTINUE TO FOLLOW.
[2019-02-19 11:50] VITALS: BP 149/86
--- NOTE | 2019-02-19 12:58 | NUR ---
WEBMASTER IN TO TALK WITH PT. PT ASKING WHY HE NEEDS TO HAVE WOUND VAC WHEN HE HAS HAD IT ON ALL WEEKEND AND NOTHING HAS COME OUT. PT ALSO ASKING IF HE CAN USE CRUTCHES INSTEAD OF A A WALKER. EXPLAINED TO HIM THAT PODIATRY WAS COMING IN THIS AFTERNOON TO CHANGE WOUND VAC AND THESE ARE QUESTIONS HE WILL NEED TO ADDRESS WITH THEM. VOICES UNDERSTANDING.
--- NOTE | 2019-02-19 13:39 | NUR ---
PHYSICAL THERAPY Informed consent given. Patient is NWB on the L LE. Patient says he doesn't think he needs therapy. Patient reports no pain at this time. Patient performed supine to sitting at EOB transfer with SBA. PATIENT HAS WOUND VAC ATTACHED. Patient transfers sit to stand with SBA. Patient says he transfers to bedside commode throughout the day by himself. Patient performed ambulation a short distance from EOB for 5' x 1 THEN BACKWARDS with STANDARD WALKER and SBA. Patient then sat on EOB and performed bilateral LE ther ex 2 x 10 reps each in all planes of movement for strengthening the LEs in order to improve functional mobility. Patient tolerated ther ex well with no increased pain in L LE/ foot AND MAINTAINING NWB on L LE successfully. Patient transferred back to supine in bed Independently. Patient left in supine with head of bed elevated, call light within reach, and tray table near patient. Patient was 1:1 with this RESIDENTIAL INTERIOR DESIGNER for 16 minutes total. MANSI ESCALERA RESIDENTIAL INTERIOR DESIGNER
[2019-02-19 16:00] VITALS: BP 113/88
--- NOTE | 2019-02-19 16:01 | NUR ---
PER DR MCKEON PT DOES NOT NEED WOUND VAC OR WALKER. STATES HE HAS ALREADY TALKED WITH KEIRA LAL. WILL CONTINUE TO FOLLOW.
[2019-02-19] MEDS ORDERED: SEPTDS PO (16:13)
[2019-02-19] MEDS ORDERED: AMLODIPINE BESYL5 MG PO (16:13)
[2019-02-19] MEDS ORDERED: HYDROCODONE-AC1 EAC1 PO (16:13)
--- NOTE | 2019-02-19 17:47 | NUR ---
Discharge instructions reviewed with patient/family. Patient receptive and verbalizes understanding. Follow-up care arranged. Written instructions given to patient/family. LAWSON STEPHENSON
--- NOTE | 2019-02-20 06:59 | NUR ---
PHYSICAL THERAPY CO-SIGN I approve of the Phyical Therapy notes written above. MERRY CARUSO PT
[2019-03-29 09:08] LABS: ACID FAST CULTURE Negative (.)
== END 2019-02-19 17:47 | disposition home or self-care (01) | DRG 854 ==
LOC: ED 09:58 → EDHOLD 10:53 → 5E 10:53
PROVIDERS: Emergency Medicine; Internal Medicine; Podiatrist; Podiatrist Foot & Ankle Surgery; Registered Nurse; ADMIT Internal Medicine
PROC: 0QBP0ZX Excision of Left Metatarsal, Open Approach, Diagnostic (ICD-10-PCS; principal; 2019-02-14)
DX: A41.9 Sepsis, unspecified organism (principal); E44.0 Moderate protein-calorie malnutrition; L03.116 Cellulitis of left lower limb; I50.32 Chronic diastolic (congestive) heart failure; L02.612 Cutaneous abscess of left foot; L97.829 Non-pressure chronic ulcer of other part of left lower leg with unspecified severity; M86.8X7 Other osteomyelitis, ankle and foot; E11.65 Type 2 diabetes mellitus with hyperglycemia; E11.69 Type 2 diabetes mellitus with other specified complication; K21.9 Gastro-esophageal reflux disease without esophagitis; E11.621 Type 2 diabetes mellitus with foot ulcer; E78.1 Pure hyperglyceridemia; L97.519 Non-pressure chronic ulcer of other part of right foot with unspecified severity; D64.9 Anemia, unspecified; K52.9 Noninfective gastroenteritis and colitis, unspecified; E11.40 Type 2 diabetes mellitus with diabetic neuropathy, unspecified; E78.00 Pure hypercholesterolemia, unspecified; E11.51 Type 2 diabetes mellitus with diabetic peripheral angiopathy without gangrene; M19.90 Unspecified osteoarthritis, unspecified site; I11.0 Hypertensive heart disease with heart failure; F32.9 Major depressive disorder, single episode, unspecified; E78.5 Hyperlipidemia, unspecified; Z82.49 Family history of ischemic heart disease and other diseases of the circulatory system; Z82.3 Family history of stroke; Z91.19 Patient's noncompliance with other medical treatment and regimen; Z79.899 Other long term (current) drug therapy; Z68.27 Body mass index [BMI] 27.0-27.9, adult

== ENCOUNTER → 2019-02-22 | Outpatient (CLI) | payer OTHER ==
[~2019-02-22] MED LIST changes: +AMLODIPINE BESYL5 MG PO; +HYDROCODONE-AC1 EAC1 PO; +SEPTDS PO
[2019-02-22 08:09] LABS: BASO # 0.1 10*3/uL (0.0-0.1); BASO % 0.8 % (0.0-1.0); EOS # 0.3 10*3/uL (0.0-0.4); EOS % 4.4 % (1.0-4.0); HEMATOCRIT 38.5 % (42.0-52.0); HEMOGLOBIN 12.6 g/dl (14.0-18.0); LYMPH # 2.4 10*3/uL (1.3-4.4); LYMPH % 30.9 % (27.0-41.0); MEAN CELL VOLUME 91.4 fl (80.0-94.0); MEAN CORPUSCULAR HGB 29.9 pg (27.0-31.0); MEAN CORPUSCULAR HGB CONC 32.7 g/dl (33.0-37.0); MEAN PLATELET VOLUME 9.7 fl (9.6-12.3); MONO # 0.6 10*3/uL (0.1-1.0); MONO % 8.2 % (3.0-9.0); NEUT # 4.2 10*3/uL (2.3-7.9); NEUT % 54.3 % (47.0-73.0); PLATELET COUNT AUTOMATED 428 10*3/uL (130-400); RED BLOOD COUNT 4.21 10*6/uL (4.50-5.90); RED CELL DISTRI WIDTH 11.9 % (0-14.5); WHITE BLOOD COUNT 7.7 10*3/uL (4.8-10.8)
[2019-02-22 08:49] LABS: ALBUMIN 3.3 gm/dl (3.1-4.5); BUN 21 mg/dl (7-24); CHLORIDE 108 mmol/L (98-107); POTASSIUM 4.6 mmol/L (3.5-5.1); SODIUM 137 mmol/L (136-145)
[2019-02-22 09:10] LABS: ALKALINE PHOSPHATASE 175 U/L (45-117); CREATININE 1.17 mg/dL (0.70-1.30); SGOT/AST 27 IU/L (3-35); SGPT/ALT 56 U/L (12-78); TOTAL PROTEIN 7.6 gm/dL (6.4-8.2)
== END | disposition home or self-care (01) ==
LOC: LAB 07:44
PROVIDERS: Registered Nurse
DX: M86.8X7 Other osteomyelitis, ankle and foot (principal); E11.621 Type 2 diabetes mellitus with foot ulcer; Z79.899 Other long term (current) drug therapy

== ENCOUNTER → 2019-02-28 | Outpatient (CLI) | payer OTHER ==
[2019-02-28 08:58] LABS: ALBUMIN 4.2 gm/dl (3.1-4.5); BUN 20 mg/dl (7-24); SGOT/AST 17 IU/L (3-35)
[2019-02-28 08:59] LABS: BASO # 0.1 10*3/uL (0.0-0.1); BASO % 0.9 % (0.0-1.0); EOS # 0.2 10*3/uL (0.0-0.4); HEMATOCRIT 45.1 % (42.0-52.0); HEMOGLOBIN 14.9 g/dl (14.0-18.0); LYMPH # 2.8 10*3/uL (1.3-4.4); LYMPH % 36.2 % (27.0-41.0); MEAN CELL VOLUME 90.9 fl (80.0-94.0); MEAN PLATELET VOLUME 10.6 fl (9.6-12.3); MONO # 0.5 10*3/uL (0.1-1.0); MONO % 6.3 % (3.0-9.0); NEUT # 4.1 10*3/uL (2.3-7.9); NEUT % 53.1 % (47.0-73.0); PLATELET COUNT AUTOMATED 477 10*3/uL (130-400); RED BLOOD COUNT 4.96 10*6/uL (4.50-5.90); RED CELL DISTRI WIDTH 12.1 % (0-14.5); WHITE BLOOD COUNT 7.8 10*3/uL (4.8-10.8)
[2019-02-28 09:12] LABS: CHLORIDE 104 mmol/L (98-107); POTASSIUM 4.9 mmol/L (3.5-5.1); SODIUM 134 mmol/L (136-145)
[2019-02-28 09:17] LABS: ALKALINE PHOSPHATASE 151 U/L (45-117); CREATININE 1.39 mg/dL (0.70-1.30); SGPT/ALT 42 U/L (12-78); TOTAL PROTEIN 9.2 gm/dL (6.4-8.2)
== END | disposition home or self-care (01) ==
LOC: LAB 07:37
PROVIDERS: Registered Nurse
DX: L08.9 Local infection of the skin and subcutaneous tissue, unspecified (principal); M01.X72 Direct infection of left ankle and foot in infectious and parasitic diseases classified elsewhere; Z79.899 Other long term (current) drug therapy

== ENCOUNTER → 2019-03-08 | Outpatient (CLI) | payer OTHER ==
[2019-03-08 09:07] LABS: BASO # 0.1 10*3/uL (0.0-0.1); BASO % 0.8 % (0.0-1.0); EOS # 0.2 10*3/uL (0.0-0.4); EOS % 3.9 % (1.0-4.0); HEMATOCRIT 32.4 % (42.0-52.0); HEMOGLOBIN 10.6 g/dl (14.0-18.0); LYMPH # 1.9 10*3/uL (1.3-4.4); LYMPH % 31.7 % (27.0-41.0); MEAN CELL VOLUME 91.3 fl (80.0-94.0); MEAN CORPUSCULAR HGB 29.9 pg (27.0-31.0); MEAN CORPUSCULAR HGB CONC 32.7 g/dl (33.0-37.0); MEAN PLATELET VOLUME 10.4 fl (9.6-12.3); MONO # 0.5 10*3/uL (0.1-1.0); MONO % 8.3 % (3.0-9.0); NEUT # 3.3 10*3/uL (2.3-7.9); PLATELET COUNT AUTOMATED 232 10*3/uL (130-400); RED BLOOD COUNT 3.55 10*6/uL (4.50-5.90); RED CELL DISTRI WIDTH 12.1 % (0-14.5); WHITE BLOOD COUNT 5.9 10*3/uL (4.8-10.8)
[2019-03-08 09:16] LABS: ALBUMIN 3.6 gm/dl (3.1-4.5); ALKALINE PHOSPHATASE 86 U/L (45-117); BUN 24 mg/dl (7-24); CHLORIDE 110 mmol/L (98-107); CREATININE 1.42 mg/dL (0.70-1.30); POTASSIUM 4.2 mmol/L (3.5-5.1); SGOT/AST 19 IU/L (3-35); SGPT/ALT 26 U/L (12-78); SODIUM 140 mmol/L (136-145); TOTAL PROTEIN 6.8 gm/dL (6.4-8.2)
== END | disposition home or self-care (01) ==
LOC: LAB 08:25
PROVIDERS: Internal Medicine
DX: L08.9 Local infection of the skin and subcutaneous tissue, unspecified (principal); M01.X72 Direct infection of left ankle and foot in infectious and parasitic diseases classified elsewhere; Z79.899 Other long term (current) drug therapy

== ENCOUNTER → 2019-03-13 | Outpatient (CLI) | payer OTHER ==
[2019-03-13 09:15] LABS: BASO # 0.1 10*3/uL (0.0-0.1); BASO % 0.8 % (0.0-1.0); EOS # 0.4 10*3/uL (0.0-0.4); EOS % 6.5 % (1.0-4.0); HEMATOCRIT 35.7 % (42.0-52.0); HEMOGLOBIN 11.3 g/dl (14.0-18.0); LYMPH # 2.2 10*3/uL (1.3-4.4); LYMPH % 32.7 % (27.0-41.0); MEAN CORPUSCULAR HGB 29.4 pg (27.0-31.0); MEAN CORPUSCULAR HGB CONC 31.7 g/dl (33.0-37.0); MEAN PLATELET VOLUME 10.2 fl (9.6-12.3); MONO # 0.5 10*3/uL (0.1-1.0); MONO % 7.7 % (3.0-9.0); NEUT # 3.4 10*3/uL (2.3-7.9); NEUT % 51.7 % (47.0-73.0); PLATELET COUNT AUTOMATED 255 10*3/uL (130-400); RED BLOOD COUNT 3.84 10*6/uL (4.50-5.90); RED CELL DISTRI WIDTH 12.2 % (0-14.5); WHITE BLOOD COUNT 6.6 10*3/uL (4.8-10.8)
[2019-03-13 09:51] LABS: ALBUMIN 3.6 gm/dl (3.1-4.5); ALKALINE PHOSPHATASE 110 U/L (45-117); BUN 20 mg/dl (7-24); CHLORIDE 106 mmol/L (98-107); CREATININE 1.13 mg/dL (0.70-1.30); SGOT/AST 16 IU/L (3-35); SGPT/ALT 27 U/L (12-78); SODIUM 138 mmol/L (136-145); TOTAL PROTEIN 7.3 gm/dL (6.4-8.2)
== END | disposition home or self-care (01) ==
LOC: LAB 08:46
PROVIDERS: Registered Nurse
DX: L08.9 Local infection of the skin and subcutaneous tissue, unspecified (principal); M01.X72 Direct infection of left ankle and foot in infectious and parasitic diseases classified elsewhere; Z79.899 Other long term (current) drug therapy

== ENCOUNTER → 2019-04-10 | Outpatient (CLI) | payer OTHER | END | disposition home or self-care (01) | LOC: US 13:30 | DX: I70.90 Unspecified atherosclerosis (principal); I73.9 Peripheral vascular disease, unspecified; E11.9 Type 2 diabetes mellitus without complications ==

== ENCOUNTER → 2019-07-03 | Outpatient (CLI) | payer OTHER ==
[~2019-07-03] MED LIST changes: +ADMELOG100 UNIT/1 SQ; +BASAG SOL SC; +CEFAZOLIN2 GM/100 M IV; +CEFAZOLIN2 GM/20 ML IV; +FENOFIBRATE150 MG PO; +INVOKANA100 M1 PO; +NORVASC2.5 MG PO; +OMEPRAZOLE40 MG PO; +PHARMASSURE1000 MCG PO; +STEGLATRO15 MG PO; +VITAMIN D31000 UNI1 PO
== END | disposition home or self-care (01) ==
LOC: RESCLI 00:42
DX: E78.1 Pure hyperglyceridemia (principal); E55.9 Vitamin D deficiency, unspecified; E53.8 Deficiency of other specified B group vitamins; E11.65 Type 2 diabetes mellitus with hyperglycemia; I10 Essential (primary) hypertension; K21.9 Gastro-esophageal reflux disease without esophagitis; Z79.899 Other long term (current) drug therapy; Z88.8 Allergy status to other drugs, medicaments and biological substances

== ENCOUNTER 2019-08-06 14:34 | Inpatient (IN) | payer OTHER ==
[~2019-08-06] VITALS: Ht 170.1 cm; Wt 84.1 kg
[~2019-08-06 14:34] MED LIST changes: -ADMELOG100 UNIT/1 SQ; -BASAG SOL SC; -CEFAZOLIN2 GM/100 M IV; -CEFAZOLIN2 GM/20 ML IV; -FENOFIBRATE150 MG PO; -INVOKANA100 M1 PO; -NORVASC2.5 MG PO; -OMEPRAZOLE40 MG PO; -PHARMASSURE1000 MCG PO; -STEGLATRO15 MG PO; -VITAMIN D31000 UNI1 PO
[2019-08-06 14:51] VITALS: BP 121/80
--- NOTE | 2019-08-06 15:06 | NUR ---
CCA 43, admitted to 5E, under the services of TERRANCE Ya DO with a diagnosis of CELLULITIS OF RIGHT GREAT FOOT AND RIGHT GREAT TOE. Chief complaint is CELLULITIS. Patient arrived via wheel chair from OR. Monitor applied. Initial assessment completed. Vital signs taken and recorded. TERRANCE YA DO notified of admission to the unit. Orders received. See assessment for past medical history, medications and allergies. Patient and/or family oriented to unit. [address] visitation policy reviewed. Clothing/patient valuable form completed. LIZ DE LA ROSA.
--- NOTE | 2019-08-06 15:17 | NUR ---
ATTEMPTED TO REACH PHARMACY REGARDING HOME MEDS. PHARMACIST STATES COMPUTER IS DOWN AT THIS TIME AND TO TRY AGAIN LATER.
[2019-08-06 15:24] LABS: BASO # 0.1 10*3/uL (0.0-0.1); BASO % 0.4 % (0.0-1.0); EOS # 0.2 10*3/uL (0.0-0.4); EOS % 1.9 % (1.0-4.0); HEMATOCRIT 45.1 % (42.0-52.0); HEMOGLOBIN 14.7 g/dl (14.0-18.0); LYMPH % 16.6 % (27.0-41.0); MEAN CELL VOLUME 88.3 fl (80.0-94.0); MEAN CORPUSCULAR HGB 28.8 pg (27.0-31.0); MEAN CORPUSCULAR HGB CONC 32.6 g/dl (33.0-37.0); MEAN PLATELET VOLUME 10.5 fl (9.6-12.3); MONO # 0.9 10*3/uL (0.1-1.0); MONO % 7.5 % (3.0-9.0); NEUT # 8.7 10*3/uL (2.3-7.9); NEUT % 73.2 % (47.0-73.0); PLATELET COUNT AUTOMATED 313 10*3/uL (130-400); RED BLOOD COUNT 5.11 10*6/uL (4.50-5.90); RED CELL DISTRI WIDTH 12.8 % (0-14.5); WHITE BLOOD COUNT 11.9 10*3/uL (4.8-10.8)
[2019-08-06 15:39] LABS: ALBUMIN 3.9 gm/dl (3.1-4.5); CREATININE 1.66 mg/dL (0.70-1.30); POTASSIUM 4.4 mmol/L (3.5-5.1); TOTAL PROTEIN 8.5 gm/dL (6.4-8.2)
[2019-08-06 16:00] VITALS: BP 121/80
--- NOTE | 2019-08-06 16:11 | NUR ---
WOUND CULTURE OBTAINED OF RIGHT GREAT TOE AND SENT PER ORDER.
--- NOTE | 2019-08-06 16:26 | NUR ---
[facility] CALLED AT THIS TIME REGARDING HOME MEDS. WAITING FOR FAXED LIST.
--- NOTE | 2019-08-06 16:51 | NUR ---
PATIENT TAKEN OFF FLOOR FOR SCHEDULED U/S.
[2019-08-06] MEDS ORDERED: BASAG SOL SC (17:23)
[2019-08-06] MEDS ORDERED: PHARMASSURE1000 MCG PO (17:23)
[2019-08-06] MEDS ORDERED: INVOKANA100 M1 PO (17:24)
[2019-08-06] MEDS ORDERED: OMEPRAZOLE40 MG PO (17:25)
[2019-08-06] MEDS ORDERED: VITAMIN D31000 UNI1 PO (17:26)
[2019-08-06] MEDS ORDERED: ADMELOG100 UNIT/1 SQ (17:26)
[2019-08-06] MEDS ORDERED: FENOFIBRATE150 MG PO (17:28)
[2019-08-06] MEDS ORDERED: NORVASC2.5 MG PO (17:29)
[2019-08-06] MEDS ORDERED: STEGLATRO15 MG PO (17:29)
--- NOTE | 2019-08-06 17:31 | NUR ---
MEDS REVIEWED AND UPDATED PER POLICY.
--- NOTE | 2019-08-06 18:47 | NUR ---
ID'S ANSWERING SERVICE NOTIFED OF CONSULT.
--- NOTE | 2019-08-06 19:39 | NUR ---
PATIENT IS RESTING IN BED WITH EASY AND REGULAR RESPERS ON ROOM AIR. ASSESSMENT IS COMPLETE WITH S/S OF DISTRESS NOTED AT THIS TIME. PATIENT C/O FEET SORENESS AND IS REQUESTING TYLENOL AT THIS TIME. BED IS LOW, LOCKED, AND CALL LIGHT IS WITHIN REACH. WILL CONTINUE TO MONITOR, SEE SHIFT ASSESSMENT.
--- NOTE | 2019-08-06 19:45 | NUR ---
PRN TYLENOL GIVEN FOR FOOT PAIN AND BEDSIDE GLUCOSE 245. CALL LIGHT IS WITHIN REACH.
[2019-08-06 20:00] VITALS: BP 122/76
[2019-08-07] VITALS: BP 117/81
--- NOTE | 2019-08-07 00:33 | NUR ---
24 HR. CHART CHECK COMPLETE.
--- NOTE | 2019-08-07 03:28 | NUR ---
NO C/O NOTED AT THIS TIME. CALL LIGHT IS WITHIN REACH.
--- NOTE | 2019-08-07 05:17 | NUR ---
BEDSIDE GLUCOSE 181. PATIENT DOES NOT WANT COVERAGE.
[2019-08-07 06:55] LABS: BASO % 0.4 % (0.0-1.0); EOS # 0.3 10*3/uL (0.0-0.4); EOS % 4.6 % (1.0-4.0); HEMATOCRIT 43.8 % (42.0-52.0); HEMOGLOBIN 14.1 g/dl (14.0-18.0); LYMPH # 1.6 10*3/uL (1.3-4.4); LYMPH % 23.9 % (27.0-41.0); MEAN CELL VOLUME 89.9 fl (80.0-94.0); MEAN CORPUSCULAR HGB CONC 32.2 g/dl (33.0-37.0); MEAN PLATELET VOLUME 10.9 fl (9.6-12.3); MONO # 0.6 10*3/uL (0.1-1.0); MONO % 8.2 % (3.0-9.0); NEUT # 4.2 10*3/uL (2.3-7.9); NEUT % 62.3 % (47.0-73.0); PLATELET COUNT AUTOMATED 304 10*3/uL (130-400); RED BLOOD COUNT 4.87 10*6/uL (4.50-5.90); RED CELL DISTRI WIDTH 12.9 % (0-14.5); WHITE BLOOD COUNT 6.7 10*3/uL (4.8-10.8)
[2019-08-07 07:18] LABS: BUN 20 mg/dl (7-24); CHLORIDE 107 mmol/L (98-107); CREATININE 1.33 mg/dL (0.70-1.30); PHOSPHOROUS 3.2 mg/dL (2.5-4.9); POTASSIUM 3.7 mmol/L (3.5-5.1); SODIUM 139 mmol/L (136-145)
[2019-08-07 07:55] LABS: VITAMIN D, 25-HYDROXY 20.3 ng/mL (30-100)
--- NOTE | 2019-08-07 09:05 | NUR ---
VIPIN QUINONES [id number] Please refer to the physician's history and physical for past medical history, comorbid conditions, and allergies. Diagnosis: CELULITIS OF RIGHT FOOT AND RIGHT GREAT TOE, Mark Score: 17,AT RISK WOUND DESCRIPTIONS: Wound Number: 1 Location of the wound: LEFT FOOT, BETWEEN 2ND AND 3RD TOES Thickness: Partial Size: 0.5cm X 0.5cm X 0.1cm Tunneling: NONE Undermining: NONE Sinus Tract: NONE Presence of Exudate: Serous Amount: Moderate Color: Red Odor: None Periwound Skin Appearance: Erythema Wound edges: APPROXIMATED Pain (associated with wound): DENIED AT TIME OF ASSESSMENT How does patient state this happened? PATIENT STATES THIS OCCURED APPROXIMATELY ONE WEEK AGO. If wound is on legs/feet or hands, capillary refill time, pulses, color temp, sensation: CAP REFILL < 3 SECONDS Wound Number: 2 Location of the wound: LEFT PLANTAR FOOT Type of wound: DFU Thickness: Partial Size: 0.6cm X 0.6cm X 0.3cm Tunneling: NONE Undermining: NONE Sinus Tract: NONE Presence of Exudate: Serous Amount: Moderate Color: Red Odor: None Periwound Skin Appearance: Callus Wound edges: APPROXIMATED Pain (associated with wound): DENIED AT TIME OF ASSESSMENT How does patient state this happened? PATIENT STATES THAT HE HAS HAD THIS WOUND SINCE April THIS YEAR. If wound is on legs/feet or hands, capillary refill time, pulses, color temp, sensation: CAP REFILL <3 SECONDS. Wound Number: 3 Location of the wound: RIGHT GREAT TOE PLANTAR SURFACE Type of wound: DFU Thickness: Full Size: 1.6cm X 1.3cm X 0.8cm Tunneling: NONE Underminin O'CLOCK TO 3 O'CLOCK WITH DEPTH OF 0.7cm Sinus Tract: NONE Presence of Exudate: Serous sanguineous Amount: Moderate Color: Yellow Odor: None Periwound Skin Appearance: Erythema Wound edges: APPROXIMATED Pain (associated with wound): TENDER TO TOUCH How does patient state this happened? PATIENT STATES THAT THIS WOUND HAS BEEN THERE SINCE April THIS YEAR. If wound is on legs/feet or hands, capillary refill time, pulses, color temp, sensation: CAP REFILL <3SECONDS. Surface the patient is resting on: Isoflex SKIN PREVENTION RECOMMENDATION: 1. Pressure redistribution support surface as appropriate 2. Elevate heels 3. Remove boots/TEDS every shift and reapply 4. Head of bed 30 degrees as tolerated 5. Assess nutrition and hydration 6. Manage moisture 7. Avoid the use of containment devices while in bed 8. Use absorptive products on surfaces limit layers of linens on bed 9. Turn and reposition every 1-2 hours in bed and every 1 hour in chair as tolerated 10. Weight shifts every 15 minutes while up in chair 11. Offloading with pillows or device to keep heels elevated off bed 12. Monitor skin at least every shift 13. Inspect under medical devices twice a day WOUND TREATMENT RECOMMENDATIONS: DR. BOYLE IS ON CONSULT. WOUND CULTURE HAS BEEN OBTAINED. FINAL RESULTS PENDING. ID CONSULT PENDING RESULTS OF WOUND CULTURE. STAGE 4 GUIDELINES TO LEFT PLANTAR FOOT, LEFT FOOT BETWEEN 2ND AND 3RD TOE, AND RIGHT GREAT TOE PLANTAR SURFACE: CLEANSE WITH NSS APPLY SUREPREP AROUND THE WOUND ALLOW TO DRY APPLY MAXORB TO WOUND BASE AND COVER WITH 4X4s, ABD AND KERLIX. CHANGE EVERY 2 DAYS AND PRN SOILING.
--- NOTE | 2019-08-07 11:00 | NUR ---
Late entry: Stump Shooter in to talk to patient. Patient states lives at home alone. There are 0 steps in the home. Physician: [facility]: [facility] Home health services: none Patient's level of ADLs: INDEPENDENT Patient has working utilities: yes DME: none Follow-up physician's appointment after d/c: will be made by the hospitalist nurse director upon discharge Does patient want to access PORTAL?: no Discharge plan discussed with patient. He lives at home alone. He is independent in his ADLs and ambulation. Discussed home health care services and he denies any home needs at this time. When medically stable he will be discharged to home. He states he will drive himself home as he drove himself here. JOSIAH HERNANDEZ
[2019-08-07 12:00] VITALS: BP 117/80
[2019-08-07 16:00] VITALS: BP 106/79
[2019-08-07 20:00] VITALS: BP 121/77
--- NOTE | 2019-08-07 22:28 | NUR ---
NORCO GIVEN PER ORDER FOR RIGHT GREAT TOE PAIN RATED "8"SEE NOV. DRESSING FELL OFF RIGHT GREAT TOE. DRESSING REAPPLIED.
[2019-08-08] VITALS: BP 140/91
--- NOTE | 2019-08-08 00:56 | NUR ---
24 HR chart check completed.
[2019-08-08 06:36] LABS: BUN 24 mg/dl (7-24); CHLORIDE 109 mmol/L (98-107); CREATININE 1.38 mg/dL (0.70-1.30); POTASSIUM 4.5 mmol/L (3.5-5.1); SODIUM 142 mmol/L (136-145)
--- NOTE | 2019-08-08 09:30 | NUR ---
Residential Treatment Staff in to see patient. Discussed IV antibiotics at home. He is agreeable. Discussed home health care services and he is agreeable. When provided with a list of agencies he chose [facility]. He states he is willing to learn how to administer his own IV antibiotics. Discussed short term SNF and he refuses. When medically stable he will be discharged to home.
[2019-08-08 12:00] VITALS: BP 131/85
[2019-08-08 16:00] VITALS: BP 117/81
[2019-08-08 20:00] VITALS: BP 117/77
--- NOTE | 2019-08-08 23:00 | NUR ---
NORCO GIVEN PER ORDER FOR RIGHT FOOT PAIN PER PT. RATED "5". SEE MAR. DRESSING SOILED ON RIGHT GREAT TOE, DRESSING REMOVED AND CHANGED PER ORDER. LEFT FOOT DRESSING DONE PER ORDER. PATIENT TOLERATED WELL.
--- NOTE | 2019-08-08 23:55 | NUR ---
CALLED DR. GARCIA AND NOTIFIED HIM OF BEDSIDE GLUCOSE.NO NEW ORDERS.
[2019-08-09] VITALS: BP 133/86
--- NOTE | 2019-08-09 | NUR ---
NORCO EFFECTIVE FOR FOOT PAIN.
--- NOTE | 2019-08-09 01:31 | NUR ---
24 HR chart check completed.
--- NOTE | 2019-08-09 06:30 | NUR ---
SLEPT WELL. NO DISTRESS NOTED. DRESSING TO BILAT FEET INTACT
[2019-08-09 06:46] LABS: BASO # 0.1 10*3/uL (0.0-0.1); BASO % 0.6 % (0.0-1.0); EOS # 0.5 10*3/uL (0.0-0.4); HEMATOCRIT 42.5 % (42.0-52.0); HEMOGLOBIN 13.8 g/dl (14.0-18.0); LYMPH # 1.6 10*3/uL (1.3-4.4); LYMPH % 17.9 % (27.0-41.0); MEAN CELL VOLUME 88.2 fl (80.0-94.0); MEAN CORPUSCULAR HGB 28.6 pg (27.0-31.0); MEAN CORPUSCULAR HGB CONC 32.5 g/dl (33.0-37.0); MEAN PLATELET VOLUME 10.4 fl (9.6-12.3); MONO # 0.8 10*3/uL (0.1-1.0); NEUT # 6.1 10*3/uL (2.3-7.9); NEUT % 67.1 % (47.0-73.0); PLATELET COUNT AUTOMATED 318 10*3/uL (130-400); RED BLOOD COUNT 4.82 10*6/uL (4.50-5.90); RED CELL DISTRI WIDTH 12.8 % (0-14.5)
[2019-08-09 07:10] LABS: BUN 22 mg/dl (7-24); CHLORIDE 106 mmol/L (98-107); CREATININE 1.23 mg/dL (0.70-1.30); POTASSIUM 3.9 mmol/L (3.5-5.1); SODIUM 138 mmol/L (136-145)
[2019-08-09 08:00] VITALS: BP 152/68
--- NOTE | 2019-08-09 08:18 | NUR ---
PT ASSESSED AT THIS TIME. PT SITTING UP IN BED. RESPIRATIONS EASY AND UNLABORED ON ROOM AIR. PT DENIES ANY PAIN AT THIS TIME AND DENIES NEEDING ANYTHING. ALL NEEDS ARE CURRENTLY MET. DRESSINGS TO BILATERAL FEET ARE C/D/I. WILL CONTINUE TO MONITOR. CALL LIGHT IN REACH.
--- NOTE | 2019-08-09 09:00 | NUR ---
Building Engineer in to see patient. No new needs or request at this time. When medically stable he will be discharged to home with [facility] services if needed. Awaiting bone biopsy for finalization of antibiotics.
--- NOTE | 2019-08-09 11:52 | NUR ---
PT GIVEN NORCO AT THIS TIME FOR C/O GENERALIZED PAIN. WILL MONITOR FOR EFFECTIVENESS. VITALS WNL. PT LYING IN BED, ALL SAFETY MEASURES IN PLACE. CALL LIGHT IN REACH.
[2019-08-09 12:00] VITALS: BP 120/90
--- NOTE | 2019-08-09 12:52 | NUR ---
NORCO EFFECTIVE AT THIS TIME.
[2019-08-09 15:34] VITALS: BP 108/58
[2019-08-09 16:00] VITALS: BP 119/69
--- NOTE | 2019-08-09 17:30 | NUR ---
PT GIVEN ORDERED INSULIN PER S/S. IV ATB HUNG AT THIS TIME. IV SITE TO RAC FLUSHING WITH EASE AND GIVING GOOD BLOOD RETURN. PT DENIES NEEDING ANYTHING AT THIS TIME. NO OTHER COMPLAINTS ARE VOICED. RESPIRATIONS EASY AND UNLABORED ON ROOM AIR. CALL LIGHT IN REACH.
[2019-08-09 20:00] VITALS: BP 132/82
--- NOTE | 2019-08-09 20:52 | NUR ---
PATIENT UP TO BATHROOM AND GETTING CLEANED UP AND HEART RATED 130-140'S. PT. ASYMPT.
--- NOTE | 2019-08-09 20:56 | NUR ---
24 HR chart check completed.
--- NOTE | 2019-08-09 22:07 | NUR ---
C/O PAIN IN LEFT FOOT COMING UP LEG AFTER PATIENT WAS IN BATHROOM GETTING CLEANED UP FOR SURGERY PAIN RATED "9" NORCO GIVEN PER ORDER FOR PAIN. SEE MAR.
--- NOTE | 2019-08-09 23:00 | NUR ---
LEFTY HELPING TO REDUCE PAIN PER PT. FOOT ELEVATED.
[2019-08-10] VITALS (8 sets, daily range): BP systolic 96–131; BP diastolic 60–89
[2019-08-10 07:22] LABS: BUN 22 mg/dl (7-24); CHLORIDE 106 mmol/L (98-107); SODIUM 137 mmol/L (136-145)
[2019-08-10 07:25] LABS: BASO % 0.4 % (0.0-1.0); EOS # 0.3 10*3/uL (0.0-0.4); EOS % 3.6 % (1.0-4.0); HEMATOCRIT 44.1 % (42.0-52.0); HEMOGLOBIN 14.4 g/dl (14.0-18.0); LYMPH # 1.7 10*3/uL (1.3-4.4); LYMPH % 17.8 % (27.0-41.0); MEAN CELL VOLUME 87.5 fl (80.0-94.0); MEAN CORPUSCULAR HGB 28.6 pg (27.0-31.0); MEAN CORPUSCULAR HGB CONC 32.7 g/dl (33.0-37.0); MEAN PLATELET VOLUME 10.6 fl (9.6-12.3); MONO # 0.9 10*3/uL (0.1-1.0); MONO % 9.3 % (3.0-9.0); NEUT # 6.5 10*3/uL (2.3-7.9); NEUT % 68.4 % (47.0-73.0); PLATELET COUNT AUTOMATED 365 10*3/uL (130-400); RED BLOOD COUNT 5.04 10*6/uL (4.50-5.90); RED CELL DISTRI WIDTH 12.8 % (0-14.5); WHITE BLOOD COUNT 9.5 10*3/uL (4.8-10.8)
--- NOTE | 2019-08-10 08:00 | NUR ---
ASSESSMENT COMPLETE AT THIS TIME. NO NEW ABNORMALITIES NOTED. BLOOD PRESSURE WNL. NO COMPLAINTS ARE VOICED BY PT AT THIS TIME. WILL CONTINUE TO MONITOR. PT CURRENTLY NPO STATUS FOR PROCEDURE TODAY. CALL LIGHT IN REACH.
--- NOTE | 2019-08-10 08:30 | NUR ---
DRESSINGS APPLIED TO PATIENT'S LEFT FOOT AND TOES PER ORDERS. PT TOLERATED WELL. NO COMPLAINTS ARE VOICED AT THIS TIME. RESPIRATIONS EASY AND UNLABORED ON ROOM AIR. CALL LIGHT IN REACH.
--- NOTE | 2019-08-10 09:00 | NUR ---
Biscuit Factory Worker in to see patient. No new needs or request at this time. When medically stable he will be discharged to home with [facility] services if needed. Awaiting bone biopsy for finalization of antibiotics. ID following. He is on Vancomycin and Maxipime.
--- NOTE | 2019-08-10 11:30 | NUR ---
PATIENT MEDICATED WITH IVP ZOFRAN FOR NAUSEA
--- NOTE | 2019-08-10 12:42 | NUR ---
REPORT RECEIVED FROM SURGERY NURSE. PT TO RETURN TO FLOOR IN 10 MINUTES.
--- NOTE | 2019-08-10 13:10 | NUR ---
PT RETURNS FROM SURGERY. PT ALERT ORIENTED AND PLEASANT. PT DENIES PAIN OR SOB AT THIS TIME. DRESSINGS TO BILATERAL FEET ARE C/D/I. ALL CHARTING AND MEDICATIONS TO BE CAUGHT UP ON PT AT THIS TIME. BLOOD SUGAR 146. ALL SAFETY MEASURES IN PLACE. CALL LIGHT IN REACH.
--- NOTE | 2019-08-10 13:25 | NUR ---
NOTIFIED LAB THAT PT IS BACK TO FLOOR AND THAT VANCOMYCIN TROUGH CAN BE DRAWN AT THIS TIME.
--- NOTE | 2019-08-10 13:49 | NUR ---
PT UPDATED ON MEDICATIONS. PHARMACY NOTIFIED OF HANGING IV ANTIBIOTICS LATE. VITALS OBTAINED AND WNL. NO COMPLAINTS OF PAIN VOICED AT THIS TIME. RESPIRATIONS EASY AND UNLABORED. CALL LIGHT IN REACH.
--- NOTE | 2019-08-10 23:00 | NUR ---
PT IV SITE SWOLLEN AND RED. IV FLUIDS STOPPED AND IV REMOVED.
--- NOTE | 2019-08-10 23:30 | NUR ---
NEW IV SITE IN LAC. PT TOLERATED WELL. FLUSHED WITH NS. IV FLUIDS RESTARTED.
--- NOTE | 2019-08-11 00:43 | NUR ---
PT C/O BILATERAL FOOT PAIN RATED AN 8/10. MEDICATED WITH PRN NORCO ORDERED. WILL CHECK EFFECTIVENESS. CALL LIGHT WITHIN REACH.
--- NOTE | 2019-08-11 01:42 | NUR ---
PT SLEEPING. PAIN MED SEEMS TO BE EFFECTIVE. CALL LIGHT WITHIN REACH.
[2019-08-11 06:31] LABS: BASO # 0.1 10*3/uL (0.0-0.1); BASO % 0.6 % (0.0-1.0); EOS # 0.3 10*3/uL (0.0-0.4); EOS % 3.2 % (1.0-4.0); HEMATOCRIT 42.1 % (42.0-52.0); HEMOGLOBIN 13.8 g/dl (14.0-18.0); LYMPH % 25.9 % (27.0-41.0); MEAN CELL VOLUME 88.4 fl (80.0-94.0); MEAN CORPUSCULAR HGB CONC 32.8 g/dl (33.0-37.0); MONO % 13.1 % (3.0-9.0); NEUT # 4.4 10*3/uL (2.3-7.9); NEUT % 56.4 % (47.0-73.0); PLATELET COUNT AUTOMATED 312 10*3/uL (130-400); RED BLOOD COUNT 4.76 10*6/uL (4.50-5.90); RED CELL DISTRI WIDTH 12.6 % (0-14.5); WHITE BLOOD COUNT 7.8 10*3/uL (4.8-10.8)
[2019-08-11 06:52] LABS: BUN 23 mg/dl (7-24); CHLORIDE 107 mmol/L (98-107); CREATININE 1.31 mg/dL (0.70-1.30); POTASSIUM 3.9 mmol/L (3.5-5.1); SODIUM 139 mmol/L (136-145)
[2019-08-11 08:00] VITALS: BP 116/74
[2019-08-11 12:00] VITALS: BP 130/81
[2019-08-11 16:00] VITALS: BP 137/81
[2019-08-11 18:11] LABS: ACID FAST SPEC PROCESSING Tissue Grinding (.)
[2019-08-11 20:00] VITALS: BP 129/81
--- NOTE | 2019-08-11 22:42 | NUR ---
PT REQUESTING PAIN MED FOR BILATERAL FOOT PAIN RATED AN 8/10. MEDICATED WITH PRN NORCO ORDERED. WILL CHECK EFFECTIVENESS. CALL LIGHT WITHIN REACH.
--- NOTE | 2019-08-11 23:51 | NUR ---
24 HR chart check completed.
--- NOTE | 2019-08-11 23:51 | NUR ---
PT LYING IN BED RESTING. NO COMPLAINTS AT THIS TIME. PT STATES PAIN MED WAS EFFECTIVE. WILL MONITOR. CALL LIGHT PHILLIP THURMAN.
[2019-08-12] VITALS: BP 138/84
[2019-08-12 06:29] LABS: BASO % 0.2 % (0.0-1.0); EOS # 0.3 10*3/uL (0.0-0.4); EOS % 3.4 % (1.0-4.0); HEMATOCRIT 42.3 % (42.0-52.0); HEMOGLOBIN 13.7 g/dl (14.0-18.0); LYMPH # 1.9 10*3/uL (1.3-4.4); LYMPH % 21.4 % (27.0-41.0); MEAN CELL VOLUME 88.5 fl (80.0-94.0); MEAN CORPUSCULAR HGB 28.7 pg (27.0-31.0); MEAN CORPUSCULAR HGB CONC 32.4 g/dl (33.0-37.0); MONO # 0.8 10*3/uL (0.1-1.0); MONO % 9.5 % (3.0-9.0); NEUT # 5.7 10*3/uL (2.3-7.9); PLATELET COUNT AUTOMATED 333 10*3/uL (130-400); RED BLOOD COUNT 4.78 10*6/uL (4.50-5.90); RED CELL DISTRI WIDTH 12.6 % (0-14.5); WHITE BLOOD COUNT 8.8 10*3/uL (4.8-10.8)
[2019-08-12 06:56] LABS: BUN 24 mg/dl (7-24); CHLORIDE 108 mmol/L (98-107); CREATININE 1.23 mg/dL (0.70-1.30); POTASSIUM 4.2 mmol/L (3.5-5.1); SODIUM 140 mmol/L (136-145)
[2019-08-12 08:00] VITALS: BP 110/80
[2019-08-12 12:00] VITALS: BP 138/81
[2019-08-12 16:00] VITALS: BP 153/94
[2019-08-12 20:00] VITALS: BP 141/72
--- NOTE | 2019-08-12 21:09 | NUR ---
24 HR chart check completed.
--- NOTE | 2019-08-12 21:34 | NUR ---
NORCO GIVEN PER PATIENT REQUEST FOR COMPLAINTS OF FOOT PAIN RATED 8/10. WILL ASSESS EFFECTIVENESS.
--- NOTE | 2019-08-12 22:34 | NUR ---
RESTORIL GIVEN PER PATIENT REQUEST FOR COMPLAINTS OF INSOMNIA. WILL ASSESS EFFECTIVENESS.
[2019-08-13] VITALS: BP 146/86
--- NOTE | 2019-08-13 00:30 | NUR ---
RESTORIL EFFECTIVE PT. SLEEPING.
--- NOTE | 2019-08-13 02:18 | NUR ---
24 HR chart check completed.
[2019-08-13 08:00] VITALS: BP 115/79
--- NOTE | 2019-08-13 11:51 | NUR ---
Nutritional Support Services Note: Attempted to discuss diet with pt. Pt is sleeping and did not wake up. Pt has been eating 100% of all meals. 1800cal diet as ordered remains appropriate. Will follow up. No intervention needed at this time. Will continue to encourage intake to promote healing. Kalpana Zhao Rdn Ld
[2019-08-13 12:00] VITALS: BP 137/91
[2019-08-13] MEDS ORDERED: CEFAZOLIN2 GM/100 M IV (13:41)
[2019-08-13 16:00] VITALS: BP 141/98
[2019-08-13] MEDS ORDERED: CEFAZOLIN2 GM/20 ML IV (16:16)
[2019-08-13 20:00] VITALS: BP 141/94
--- NOTE | 2019-08-13 22:00 | NUR ---
BLOOD SUGAR 230; COVERAGE PER EMAR. PT. VOICES NO C/O AT THIS TIME. CALL LIGHT WITHIN REACH.
[2019-08-14] VITALS: BP 128/85
--- NOTE | 2019-08-14 01:19 | NUR ---
MEDICATED WITH NORCO/RESTORIL FOR C/O PAIN & INSOMNIA.
--- NOTE | 2019-08-14 01:19 | NUR ---
RESTORIL GIVEN PER ORDER FOR INSOMNIA PER PT. REQUEST. NORCO GIVEN PER ORDER FOR RIGHT FOOT/TOE PAIN RATED "6-7" SEE MAR.
--- NOTE | 2019-08-14 04:00 | NUR ---
RESTING IN BED WITH EYES CLOSED. MEDICATIONS GIVEN EARLIER APPARENTLY EFFECTIVE. CALL LIGHT WITHIN REACH.
--- NOTE | 2019-08-14 06:42 | NUR ---
BLOOD SUGAR 218; COVERAGE PER EMAR.
[2019-08-14 06:52] LABS: BASO # 0.1 10*3/uL (0.0-0.1); BASO % 0.8 % (0.0-1.0); EOS # 0.3 10*3/uL (0.0-0.4); EOS % 3.4 % (1.0-4.0); HEMATOCRIT 41.7 % (42.0-52.0); HEMOGLOBIN 13.5 g/dl (14.0-18.0); LYMPH # 1.9 10*3/uL (1.3-4.4); LYMPH % 24.6 % (27.0-41.0); MEAN CELL VOLUME 89.3 fl (80.0-94.0); MEAN CORPUSCULAR HGB 28.9 pg (27.0-31.0); MEAN CORPUSCULAR HGB CONC 32.4 g/dl (33.0-37.0); MEAN PLATELET VOLUME 10.1 fl (9.6-12.3); MONO # 0.8 10*3/uL (0.1-1.0); MONO % 9.5 % (3.0-9.0); NEUT # 4.8 10*3/uL (2.3-7.9); NEUT % 61.1 % (47.0-73.0); PLATELET COUNT AUTOMATED 330 10*3/uL (130-400); RED BLOOD COUNT 4.67 10*6/uL (4.50-5.90); RED CELL DISTRI WIDTH 12.7 % (0-14.5); WHITE BLOOD COUNT 7.9 10*3/uL (4.8-10.8)
[2019-08-14 06:59] LABS: CREATININE 1.54 mg/dL (0.70-1.30); POTASSIUM 4.2 mmol/L (3.5-5.1)
--- NOTE | 2019-08-14 07:18 | NUR ---
Faxed [employer] to check cost of Ancef 2 GM IV q8h per December. Waiting on script. Awaiting response.
[2019-08-14 08:00] VITALS: BP 126/84
--- NOTE | 2019-08-14 11:33 | NUR ---
Spoke to Inez at [facility]. Fax was not received. Refaxed. Inez states she will watch for it and call CM if she doesn't receive it.
[2019-08-14 12:00] VITALS: BP 128/90
--- NOTE | 2019-08-14 12:18 | NUR ---
Spoke to Tonie in radiology regarding PICC line placement. Dr. Flynn is here today and will have to see if he will be able to place at bedside or book an operating room. Inpatient director notified.
--- NOTE | 2019-08-14 12:24 | NUR ---
Nutritional Support Services Note: Follow up done with pt for 1800cal diabetic diet. Diet reveiwed with patient. He states he has a short term memory. Family member present who will help pt upon discharge. Encouraged him to start eating three meals daily and to have a night snack. Encouraged healthy eating. Pt states he doesn't always have food, discused foods to purchase and shopping strategies. Encouraged compliance to diet and follow up if needed. Discussed adequate protein intake. Kalpana Zhao Rdn Ld
--- NOTE | 2019-08-14 13:35 | NUR ---
JANE received call back from [employer]. Inez stated they are still having trouble with their fax machine. Inez asked to have the referral sent via email at [email or web address]. JANE sent referral. Will notify [employer] Lap Machine Tender Althea. -JANE Cassidy
--- NOTE | 2019-08-14 15:00 | NUR ---
PATIENT MEDICATED WITH NORCO AT THIS TIME FOR C/O RIB PAIN WITH COUGH. WILL MONITOR FOR EFFECTIVENESS.
--- NOTE | 2019-08-14 15:00 | NUR ---
PT MEDICATED WITH TYLENOL UPON REQUEST AND FOR COMPLAINTS OF HEADACHE. WILL MONITOR FOR EFFECTIVENESS.
--- NOTE | 2019-08-14 15:04 | NUR ---
Discussed antibiotic with Laura Ortiz from [place]. Script received for Cefepime 2 GM IV q12h. Spoke to Inez at [email or web address] regarding change in antibiotic to Cefepime 2 GM IV q12h. Discussed with patient [facility] teaching him how to administer the IV antibiotics to himself and remains agreeable. PICC line in place. Awaiting response from [employer]. Spoke to Samreen at [facility] and faxed referral for home health care services. Patient will need a dose of his antibiotic tonight before he is discharged.
--- NOTE | 2019-08-14 15:53 | NUR ---
Per Inez at [facility] this patient is a [facility] Community plan that we are unable to accept with their limited contract. Inez faxed clinical to [facility]. Spoke to [facility], they are awaiting to receive the referral. Dr. Archibald and patient notified.
[2019-08-14 16:00] VITALS: BP 122/77
[2019-08-14 20:00] VITALS: BP 136/80
--- NOTE | 2019-08-14 21:48 | NUR ---
NORCO GIVEN ORDERED FOR COMPLAINTS OF R FOOT PAIN. WILL MONITOR
--- NOTE | 2019-08-14 22:35 | NUR ---
RESTORIL GIVEN PER ORDER FOR COMPLAINT OF INSOMNIA. WILL MONITOR.
[2019-08-15] VITALS: BP 135/84
--- NOTE | 2019-08-15 00:25 | NUR ---
24 HR chart check completed.
--- NOTE | 2019-08-15 04:16 | NUR ---
Patient resting quietly with no c/o discomfort. Respirations easy and regular. Vital signs stable. No overt distress. DOMENIC WOOD
--- NOTE | 2019-08-15 05:33 | NUR ---
TYLENOL GIVEN PER PATIENT REQUEST FOR BILATERAL FOOT PAIN RATED 6/10. WILL ASSESS EFFECTIVENESS.
[2019-08-15 08:00] VITALS: BP 112/60
--- NOTE | 2019-08-15 08:17 | NUR ---
Dr. Archibald notified of pt c/o diarrhea. States he started having abdominal cramping yesterday and has had 3 episodes of diarrhea this am. States it is not totally watery but loose and frequent. Pt is requesting immodium. Dr. Archibald states he will review.
--- NOTE | 2019-08-15 08:18 | NUR ---
Attempted to reach out to [facility] with no success. No availability to leave voicemail.
--- NOTE | 2019-08-15 09:12 | NUR ---
Spoke to Joselin at [facility]. She has referral and will run coverage. She requested a new demo sheet, faxed new demo sheet. Awaiting return call. Spoke to Samreen at [facility] regarding patient not discharging yesterday due to awaiting coverage determination.
[2019-08-15 09:17] LABS: BASO # 0.1 10*3/uL (0.0-0.1); BASO % 0.6 % (0.0-1.0); EOS # 0.2 10*3/uL (0.0-0.4); EOS % 2.1 % (1.0-4.0); HEMATOCRIT 46.4 % (42.0-52.0); HEMOGLOBIN 14.8 g/dl (14.0-18.0); LYMPH # 1.7 10*3/uL (1.3-4.4); LYMPH % 20.1 % (27.0-41.0); MEAN CELL VOLUME 88.5 fl (80.0-94.0); MEAN CORPUSCULAR HGB 28.2 pg (27.0-31.0); MEAN CORPUSCULAR HGB CONC 31.9 g/dl (33.0-37.0); MONO # 0.6 10*3/uL (0.1-1.0); MONO % 7.4 % (3.0-9.0); NEUT % 69.3 % (47.0-73.0); PLATELET COUNT AUTOMATED 361 10*3/uL (130-400); RED BLOOD COUNT 5.24 10*6/uL (4.50-5.90); RED CELL DISTRI WIDTH 12.6 % (0-14.5); WHITE BLOOD COUNT 8.7 10*3/uL (4.8-10.8)
[2019-08-15 09:28] LABS: BUN 25 mg/dl (7-24); CHLORIDE 104 mmol/L (98-107); POTASSIUM 4.6 mmol/L (3.5-5.1); SODIUM 136 mmol/L (136-145)
--- NOTE | 2019-08-15 11:28 | NUR ---
Spoke to Joselin at [facility]. Patient is covered at 100%. Faxed prescription to Joselin at [facility]. Spoke to pharmacist who stated second dose could be given today at 4-5pm. Notified patient, Samreen Cerrato at [facility], and nurse.
--- NOTE | 2019-08-15 11:50 | NUR ---
Notified Joselin at [facility] of patient's discharge today after his 4pm dose of Cefepime today. [facility] to see patient in AM.
[2019-08-15 12:00] VITALS: BP 109/74
--- NOTE | 2019-08-15 12:00 | NUR ---
Althea from case managment states to give iv antibiotic early at 1600, states she spoke with pharmacy regarding this. After that pt may be dc to home. States she discussed this with pt as well.
--- NOTE | 2019-08-15 14:30 | NUR ---
Notified pt of plan for iv antibiotic at 4 pm then he could leave. Notified of need retake pictures of wounds. Pt states that is not necessary as they were just taken yesterday.
--- NOTE | 2019-08-15 15:50 | NUR ---
Discharge instructions reviewed with patient/family in room. Patient receptive and verbalizes understanding. Follow-up care arranged. Written instructions given to patient. Packet for PICC given to pt.
--- NOTE | 2019-08-15 16:11 | NUR ---
PICC line flushed saline and heparin x 2 ports. BSG was 245 and covered with 5 units. New orange protective caps applied to picc. Pt left via ambulatory in care of family. Declined wheelchair and assistance out when offered. DC at this time.
== END 2019-08-15 16:18 | disposition home or self-care (01) | DRG 720 ==
LOC: 5E 14:34
PROVIDERS: Hospitalist; Internal Medicine; ADMIT Family Medicine
PROC: 0QBQ0ZX Excision of Right Toe Phalanx, Open Approach, Diagnostic (ICD-10-PCS; principal; 2019-08-10)
PROC: 02HV33Z Insertion of Infusion Device into Superior Vena Cava, Percutaneous Approach (ICD-10-PCS; 2019-08-14)
DX: A41.9 Sepsis, unspecified organism (principal); L03.031 Cellulitis of right toe; M00.071 Staphylococcal arthritis, right ankle and foot; E11.69 Type 2 diabetes mellitus with other specified complication; E11.40 Type 2 diabetes mellitus with diabetic neuropathy, unspecified; E11.44 Type 2 diabetes mellitus with diabetic amyotrophy; N17.0 Acute kidney failure with tubular necrosis; K21.9 Gastro-esophageal reflux disease without esophagitis; E78.1 Pure hyperglyceridemia; I50.32 Chronic diastolic (congestive) heart failure; G47.00 Insomnia, unspecified; E87.8 Other disorders of electrolyte and fluid balance, not elsewhere classified; E11.621 Type 2 diabetes mellitus with foot ulcer; L97.519 Non-pressure chronic ulcer of other part of right foot with unspecified severity; I11.0 Hypertensive heart disease with heart failure; B95.61 Methicillin susceptible Staphylococcus aureus infection as the cause of diseases classified elsewhere; B96.89 Other specified bacterial agents as the cause of diseases classified elsewhere; L97.929 Non-pressure chronic ulcer of unspecified part of left lower leg with unspecified severity; E78.5 Hyperlipidemia, unspecified; F32.9 Major depressive disorder, single episode, unspecified; E55.9 Vitamin D deficiency, unspecified; E66.3 Overweight; M19.90 Unspecified osteoarthritis, unspecified site; M86.071 Acute hematogenous osteomyelitis, right ankle and foot; E11.65 Type 2 diabetes mellitus with hyperglycemia; Z79.4 Long term (current) use of insulin; Z82.49 Family history of ischemic heart disease and other diseases of the circulatory system; Z82.3 Family history of stroke; Z79.899 Other long term (current) drug therapy; Z68.29 Body mass index [BMI] 29.0-29.9, adult; E11.628 Type 2 diabetes mellitus with other skin complications

== ENCOUNTER → 2019-08-23 | Outpatient (CLI) | payer OTHER ==
[~2019-08-23] MED LIST changes: +ADMELOG100 UNIT/1 SQ; +BASAG SOL SC; +CEFAZOLIN2 GM/100 M IV; +CEFAZOLIN2 GM/20 ML IV; +FENOFIBRATE150 MG PO; +INVOKANA100 M1 PO; +NORVASC2.5 MG PO; +OMEPRAZOLE40 MG PO; +PHARMASSURE1000 MCG PO; +STEGLATRO15 MG PO; +VITAMIN D31000 UNI1 PO
== END | disposition home or self-care (01) ==
LOC: RESCLI 00:15
DX: I12.9 Hypertensive chronic kidney disease with stage 1 through stage 4 chronic kidney disease, or unspecified chronic kidney disease (principal); N18.3 Chronic kidney disease, stage 3 (moderate); E11.22 Type 2 diabetes mellitus with diabetic chronic kidney disease; E55.9 Vitamin D deficiency, unspecified; E53.8 Deficiency of other specified B group vitamins; E78.1 Pure hyperglyceridemia; K21.9 Gastro-esophageal reflux disease without esophagitis; E11.65 Type 2 diabetes mellitus with hyperglycemia; E11.40 Type 2 diabetes mellitus with diabetic neuropathy, unspecified; R52 Pain, unspecified; Z79.899 Other long term (current) drug therapy; E78.00 Pure hypercholesterolemia, unspecified

== ENCOUNTER → 2019-08-30 | Outpatient (CLI) | payer OTHER | END | disposition home or self-care (01) | LOC: RAD 09:03 | DX: L97.522 Non-pressure chronic ulcer of other part of left foot with fat layer exposed (principal); L97.511 Non-pressure chronic ulcer of other part of right foot limited to breakdown of skin; E11.65 Type 2 diabetes mellitus with hyperglycemia ==

== ENCOUNTER → 2019-09-21 | Outpatient (CLI) | payer OTHER | END | disposition home or self-care (01) | LOC: MRI 08:45 | DX: L97.511 Non-pressure chronic ulcer of other part of right foot limited to breakdown of skin (principal); L97.522 Non-pressure chronic ulcer of other part of left foot with fat layer exposed; E11.65 Type 2 diabetes mellitus with hyperglycemia ==

== ENCOUNTER 2019-09-25 16:30 | Inpatient (IN) | payer OTHER ==
[~2019-09-25] VITALS: Ht 167.6 cm; Wt 83.9 kg
[2019-09-25 09:10] VITALS: BP 130/96
[2019-09-25 09:21] VITALS: BP 130/96
[2019-09-25 16:39] VITALS: BP 138/95
[2019-09-25 17:30] LABS: BASO # 0.1 10*3/uL (0.0-0.1); BASO % 0.7 % (0.0-1.0); EOS # 0.4 10*3/uL (0.0-0.4); EOS % 4.3 % (1.0-4.0); HEMATOCRIT 42.3 % (42.0-52.0); HEMOGLOBIN 13.9 g/dl (14.0-18.0); LYMPH % 9.5 % (27.0-41.0); MEAN CELL VOLUME 88.1 fl (80.0-94.0); MEAN CORPUSCULAR HGB CONC 32.9 g/dl (33.0-37.0); MEAN PLATELET VOLUME 10.9 fl (9.6-12.3); MONO % 9.6 % (3.0-9.0); NEUT # 7.5 10*3/uL (2.3-7.9); NEUT % 75.6 % (47.0-73.0); PLATELET COUNT AUTOMATED 238 10*3/uL (130-400); RED CELL DISTRI WIDTH 13.8 % (0-14.5)
[2019-09-25 17:34] LABS: VENOUS PH 7.387 (7.32-7.43)
[2019-09-25 17:40] LABS: INTERNATIONAL NORM RATIO 0.9 (2.0-3.5)
[2019-09-25 17:51] LABS: ALBUMIN 3.2 gm/dl (3.1-4.5); ALKALINE PHOSPHATASE 731 U/L (45-117); BUN 20 mg/dl (7-24); CHLORIDE 101 mmol/L (98-107); LIPASE 983 U/L (73-393); SGOT/AST 981 IU/L (3-35); SODIUM 132 mmol/L (136-145); TOTAL PROTEIN 7.8 gm/dL (6.4-8.2)
[2019-09-25 18:01] LABS: SGPT/ALT 1117 U/L (12-78); TROPONIN I < 0.015 ng/ml (<0.045)
[2019-09-25 18:40] LABS: BILIRUBIN 1+ (NEGATIVE); BLOOD 1+ (NEGATIVE); CLARITY CLEAR (CLEAR); COLOR YELLOW (YELLOW); GLUCOSE 3+ (NEGATIVE); KETONE TRACE (NEGATIVE); LEUKO ESTERASE NEGATIVE (NEGATIVE); NITRITE NEGATIVE (NEGATIVE); SPECIFIC GRAVITY 1.015 (1.005-1.030); UROBILINOGEN 0.2 E.U./dl (0.2-1.0)
[2019-09-25 18:48] LABS: BACTERIA TRACE; WBC 0-2 wbc/hpf (0-5)
[2019-09-26 01:29] VITALS: BP 142/84
[2019-09-26 04:44] VITALS: BP 120/93
[2019-09-26 06:27] LABS: ALBUMIN 2.8 gm/dl (3.1-4.5); ALKALINE PHOSPHATASE 676 U/L (45-117); BUN 21 mg/dl (7-24); CHLORIDE 108 mmol/L (98-107); CREATININE 1.01 mg/dL (0.70-1.30); LIPASE 660 U/L (73-393); PHOSPHOROUS 3.5 mg/dL (2.5-4.9); SODIUM 139 mmol/L (136-145); TOTAL PROTEIN 7.1 gm/dL (6.4-8.2)
[2019-09-26 06:50] LABS: SGOT/AST 1016 IU/L (3-35); SGPT/ALT 1204 U/L (12-78)
[2019-09-26 07:10] LABS: BASO # 0.1 10*3/uL (0.0-0.1); BASO % 0.8 % (0.0-1.0); EOS # 0.4 10*3/uL (0.0-0.4); EOS % 5.2 % (1.0-4.0); HEMATOCRIT 39.5 % (42.0-52.0); HEMOGLOBIN 12.7 g/dl (14.0-18.0); LYMPH # 0.9 10*3/uL (1.3-4.4); LYMPH % 11.5 % (27.0-41.0); MEAN CORPUSCULAR HGB 28.6 pg (27.0-31.0); MEAN CORPUSCULAR HGB CONC 32.2 g/dl (33.0-37.0); MEAN PLATELET VOLUME 11.6 fl (9.6-12.3); MONO # 0.7 10*3/uL (0.1-1.0); MONO % 9.2 % (3.0-9.0); NEUT # 5.8 10*3/uL (2.3-7.9); NEUT % 72.9 % (47.0-73.0); PLATELET COUNT AUTOMATED 235 10*3/uL (130-400); RED BLOOD COUNT 4.44 10*6/uL (4.50-5.90); RED CELL DISTRI WIDTH 14.1 % (0-14.5); WHITE BLOOD COUNT 7.9 10*3/uL (4.8-10.8)
[2019-09-26 08:10] LABS: URINE AMPHETAMINES < 1000 (1000ng/ml); URINE BARBITURATES < 200 (200ng/ml); URINE BENZODIAZEPINES < 200 (200ng/ml); URINE CANNABINOIDS (THC) > 50 (50ng/ml); URINE COCAINE < 300 (300ng/ml); URINE METHADONE < 300 (300ng/ml); URINE OPIATES < 300 (300ng/ml)
[2019-09-26 08:12] LABS: URINE PHENCYCLIDINE < 25 (25ng/ml)
[2019-09-26 08:35] VITALS: BP 122/80
[2019-09-26] MEDS ORDERED: NEURONTIN300 MG PO (09:08)
[2019-09-26 12:00] VITALS: BP 128/90
[2019-09-26 16:00] VITALS: BP 130/82
[2019-09-26 20:00] VITALS: BP 140/88
[2019-09-27] VITALS (10 sets, daily range): BP systolic 120–150; BP diastolic 74–98
[2019-09-27 06:54] LABS: BASO # 0.1 10*3/uL (0.0-0.1); EOS # 0.5 10*3/uL (0.0-0.4); HEMATOCRIT 38.7 % (42.0-52.0); HEMOGLOBIN 12.3 g/dl (14.0-18.0); LYMPH # 1.5 10*3/uL (1.3-4.4); LYMPH % 23.6 % (27.0-41.0); MEAN CELL VOLUME 90.4 fl (80.0-94.0); MEAN CORPUSCULAR HGB 28.7 pg (27.0-31.0); MEAN CORPUSCULAR HGB CONC 31.8 g/dl (33.0-37.0); MEAN PLATELET VOLUME 10.9 fl (9.6-12.3); MONO # 0.7 10*3/uL (0.1-1.0); MONO % 11.2 % (3.0-9.0); NEUT # 3.4 10*3/uL (2.3-7.9); NEUT % 55.7 % (47.0-73.0); PLATELET COUNT AUTOMATED 240 10*3/uL (130-400); RED BLOOD COUNT 4.28 10*6/uL (4.50-5.90); RED CELL DISTRI WIDTH 14.3 % (0-14.5); WHITE BLOOD COUNT 6.1 10*3/uL (4.8-10.8)
[2019-09-27 07:06] LABS: BUN 19 mg/dl (7-24); CHLORIDE 110 mmol/L (98-107); CREATININE 1.05 mg/dL (0.70-1.30); LIPASE 402 U/L (73-393); POTASSIUM 3.9 mmol/L (3.5-5.1); SODIUM 141 mmol/L (136-145)
[2019-09-27 08:08] LABS: HEPATITIS B SURFACE AG Negative (Negative); HEPATITIS C VIRUS ANTIBODY <0.1 s/co (0.0-0.9)
[2019-09-27 08:23] LABS: ALBUMIN 2.7 gm/dl (3.1-4.5); ALKALINE PHOSPHATASE 608 U/L (45-117); BUN 19 mg/dl (7-24); CHLORIDE 110 mmol/L (98-107); CREATININE 1.03 mg/dL (0.70-1.30); POTASSIUM 3.9 mmol/L (3.5-5.1); SGOT/AST 337 IU/L (3-35); SGPT/ALT 758 U/L (12-78); SODIUM 141 mmol/L (136-145)
[2019-09-28] VITALS (9 sets, daily range): BP systolic 122–156; BP diastolic 72–93
[2019-09-28 06:51] LABS: BASO # 0.1 10*3/uL (0.0-0.1); BASO % 0.7 % (0.0-1.0); EOS # 0.5 10*3/uL (0.0-0.4); EOS % 5.6 % (1.0-4.0); HEMATOCRIT 42.5 % (42.0-52.0); HEMOGLOBIN 13.1 g/dl (14.0-18.0); LYMPH % 11.2 % (27.0-41.0); MEAN CELL VOLUME 91.6 fl (80.0-94.0); MEAN CORPUSCULAR HGB 28.2 pg (27.0-31.0); MEAN CORPUSCULAR HGB CONC 30.8 g/dl (33.0-37.0); MEAN PLATELET VOLUME 10.3 fl (9.6-12.3); MONO # 0.7 10*3/uL (0.1-1.0); MONO % 7.7 % (3.0-9.0); NEUT # 6.5 10*3/uL (2.3-7.9); NEUT % 74.5 % (47.0-73.0); PLATELET COUNT AUTOMATED 286 10*3/uL (130-400); RED BLOOD COUNT 4.64 10*6/uL (4.50-5.90); RED CELL DISTRI WIDTH 14.4 % (0-14.5); WHITE BLOOD COUNT 8.7 10*3/uL (4.8-10.8)
[2019-09-28 07:33] LABS: ALBUMIN 2.9 gm/dl (3.1-4.5); ALKALINE PHOSPHATASE 533 U/L (45-117); BUN 11 mg/dl (7-24); CHLORIDE 109 mmol/L (98-107); CREATININE 1.08 mg/dL (0.70-1.30); POTASSIUM 4.2 mmol/L (3.5-5.1); SGOT/AST 152 IU/L (3-35); SGPT/ALT 486 U/L (12-78); SODIUM 140 mmol/L (136-145); TOTAL PROTEIN 7.6 gm/dL (6.4-8.2)
[2019-09-29] VITALS: BP 137/75
[2019-09-29 07:26] LABS: ALBUMIN 2.6 gm/dl (3.1-4.5); BILIRUBIN, DIRECT 3.9 mg/dL (0.0-0.2); TOTAL PROTEIN 6.6 gm/dL (6.4-8.2)
[2019-09-29 08:00] VITALS: BP 133/78
[2019-09-29 12:00] VITALS: BP 128/66
[2019-09-29 16:00] VITALS: BP 129/55
[2019-09-29 16:04] LABS: ACID FAST SPEC PROCESSING Tissue Grinding (.)
[2019-09-29 16:04] LABS: ACID FAST SPEC PROCESSING Tissue Grinding (.)
[2019-09-29 20:00] VITALS: BP 129/78
[2019-09-30] VITALS (8 sets, daily range): BP systolic 119–157; BP diastolic 68–95
[2019-09-30 07:51] LABS: BASO % 0.6 % (0.0-1.0); EOS # 0.5 10*3/uL (0.0-0.4); HEMATOCRIT 36.4 % (42.0-52.0); HEMOGLOBIN 11.5 g/dl (14.0-18.0); LYMPH # 0.8 10*3/uL (1.3-4.4); LYMPH % 11.3 % (27.0-41.0); MEAN CELL VOLUME 91.7 fl (80.0-94.0); MEAN CORPUSCULAR HGB CONC 31.6 g/dl (33.0-37.0); MEAN PLATELET VOLUME 10.2 fl (9.6-12.3); MONO # 0.6 10*3/uL (0.1-1.0); MONO % 8.4 % (3.0-9.0); NEUT % 72.1 % (47.0-73.0); PLATELET COUNT AUTOMATED 230 10*3/uL (130-400); RED BLOOD COUNT 3.97 10*6/uL (4.50-5.90); RED CELL DISTRI WIDTH 13.8 % (0-14.5); WHITE BLOOD COUNT 6.9 10*3/uL (4.8-10.8)
[2019-09-30 08:17] LABS: ALBUMIN 2.4 gm/dl (3.1-4.5); ALKALINE PHOSPHATASE 528 U/L (45-117); BUN 12 mg/dl (7-24); CHLORIDE 110 mmol/L (98-107); CREATININE 0.89 mg/dL (0.70-1.30); LIPASE 458 U/L (73-393); POTASSIUM 3.9 mmol/L (3.5-5.1); SGOT/AST 350 IU/L (3-35); SGPT/ALT 475 U/L (12-78); SODIUM 139 mmol/L (136-145); TOTAL PROTEIN 6.5 gm/dL (6.4-8.2)
[2019-10-01] VITALS (11 sets, daily range): BP systolic 128–166; BP diastolic 54–115
[2019-10-01 06:01] LABS: ALBUMIN 1.9 gm/dl (3.1-4.5); ALKALINE PHOSPHATASE 430 U/L (45-117); BUN 12 mg/dl (7-24); CHLORIDE 117 mmol/L (98-107); CREATININE 0.67 mg/dL (0.70-1.30); POTASSIUM 3.2 mmol/L (3.5-5.1); SGOT/AST 118 IU/L (3-35); SGPT/ALT 283 U/L (12-78); SODIUM 146 mmol/L (136-145); TOTAL PROTEIN 5.3 gm/dL (6.4-8.2); VANCOMYCIN TROUGH 12.9 ug/mL (10-20)
[2019-10-01 06:13] LABS: BASO # 0.1 10*3/uL (0.0-0.1); EOS # 0.5 10*3/uL (0.0-0.4); EOS % 9.5 % (1.0-4.0); HEMATOCRIT 31.3 % (42.0-52.0); HEMOGLOBIN 9.8 g/dl (14.0-18.0); LYMPH % 19.5 % (27.0-41.0); MEAN CELL VOLUME 91.8 fl (80.0-94.0); MEAN CORPUSCULAR HGB 28.7 pg (27.0-31.0); MEAN CORPUSCULAR HGB CONC 31.3 g/dl (33.0-37.0); MEAN PLATELET VOLUME 10.9 fl (9.6-12.3); MONO # 0.5 10*3/uL (0.1-1.0); MONO % 9.7 % (3.0-9.0); NEUT % 59.9 % (47.0-73.0); PLATELET COUNT AUTOMATED 227 10*3/uL (130-400); RED BLOOD COUNT 3.41 10*6/uL (4.50-5.90); WHITE BLOOD COUNT 5.1 10*3/uL (4.8-10.8)
[2019-10-01] MEDS ORDERED: AUGMENTIN 875875 MG PO ×2 (15:27→15:28)
[2019-10-02] VITALS: BP 115/73
[2019-10-02 06:37] LABS: BASO # 0.1 10*3/uL (0.0-0.1); BASO % 0.7 % (0.0-1.0); EOS # 0.1 10*3/uL (0.0-0.4); EOS % 0.7 % (1.0-4.0); HEMATOCRIT 36.2 % (42.0-52.0); HEMOGLOBIN 11.4 g/dl (14.0-18.0); LYMPH # 1.2 10*3/uL (1.3-4.4); LYMPH % 16.9 % (27.0-41.0); MEAN CELL VOLUME 93.8 fl (80.0-94.0); MEAN CORPUSCULAR HGB 29.5 pg (27.0-31.0); MEAN CORPUSCULAR HGB CONC 31.5 g/dl (33.0-37.0); MONO # 0.7 10*3/uL (0.1-1.0); MONO % 9.3 % (3.0-9.0); NEUT % 71.8 % (47.0-73.0); PLATELET COUNT AUTOMATED 224 10*3/uL (130-400); RED BLOOD COUNT 3.86 10*6/uL (4.50-5.90); RED CELL DISTRI WIDTH 14.3 % (0-14.5)
[2019-10-02 07:15] LABS: SODIUM 138 mmol/L (136-145)
[2019-10-02 07:19] LABS: POTASSIUM 4.2 mmol/L (3.5-5.1)
[2019-10-02 07:21] LABS: ALBUMIN 2.4 gm/dl (3.1-4.5); BUN 12 mg/dl (7-24); CHLORIDE 110 mmol/L (98-107); CREATININE 0.96 mg/dL (0.70-1.30); SGOT/AST 87 IU/L (3-35); SGPT/ALT 267 U/L (12-78); TOTAL PROTEIN 6.6 gm/dL (6.4-8.2)
[2019-10-02 07:22] LABS: ALKALINE PHOSPHATASE 489 U/L (45-117)
[2019-10-02 08:00] VITALS: BP 152/92
== END 2019-10-02 13:38 | disposition home or self-care (01) | DRG 263 ==
LOC: ED 16:30 → EDHOLD 21:12 → 5E 21:12 → 4E 21:12 → 5E 09-28 15:22
PROVIDERS: Family Medicine; Hospitalist; Internal Medicine; Internal Medicine Gastroenterology; Physician Assistant; Podiatrist; Student in an Organized Health Care Education/Training Program; ADMIT Family Medicine
PROC: 0JBR0ZZ Excision of Left Foot Subcutaneous Tissue and Fascia, Open Approach (ICD-10-PCS; 2019-09-27)
PROC: 0QBR0ZX Excision of Left Toe Phalanx, Open Approach, Diagnostic (ICD-10-PCS; 2019-09-27)
PROC: 0F798ZZ Dilation of Common Bile Duct, Via Natural or Artificial Opening Endoscopic (ICD-10-PCS; 2019-09-28)
PROC: 0F798DZ Dilation of Common Bile Duct with Intraluminal Device, Via Natural or Artificial Opening Endoscopic (ICD-10-PCS; principal; 2019-09-30)
PROC: BF141ZZ Fluoroscopy of Gallbladder, Bile Ducts and Pancreatic Ducts using Low Osmolar Contrast (ICD-10-PCS; 2019-09-30)
PROC: 0FT44ZZ Resection of Gallbladder, Percutaneous Endoscopic Approach (ICD-10-PCS; 2019-10-01)
DX: K80.70 Calculus of gallbladder and bile duct without cholecystitis without obstruction (principal); N17.0 Acute kidney failure with tubular necrosis; K85.90 Acute pancreatitis without necrosis or infection, unspecified; E83.41 Hypermagnesemia; E87.1 Hypo-osmolality and hyponatremia; I11.0 Hypertensive heart disease with heart failure; E11.628 Type 2 diabetes mellitus with other skin complications; E11.42 Type 2 diabetes mellitus with diabetic polyneuropathy; I50.32 Chronic diastolic (congestive) heart failure; L08.9 Local infection of the skin and subcutaneous tissue, unspecified; D64.9 Anemia, unspecified; B95.2 Enterococcus as the cause of diseases classified elsewhere; E11.65 Type 2 diabetes mellitus with hyperglycemia; E87.6 Hypokalemia; K21.9 Gastro-esophageal reflux disease without esophagitis; E78.5 Hyperlipidemia, unspecified; F32.9 Major depressive disorder, single episode, unspecified; Z79.4 Long term (current) use of insulin; Z82.3 Family history of stroke; Z82.49 Family history of ischemic heart disease and other diseases of the circulatory system; Z79.899 Other long term (current) drug therapy

== ENCOUNTER → 2019-10-30 | Outpatient (CLI) | payer OTHER ==
[~2019-10-30] MED LIST changes: +AUGMENTIN 875875 MG PO
[2019-10-30 10:00] LABS: HEMATOCRIT 46.3 % (42.0-52.0); HEMOGLOBIN 14.7 g/dl (14.0-18.0); MEAN CELL VOLUME 88.7 fl (80.0-94.0); MEAN CORPUSCULAR HGB 28.2 pg (27.0-31.0); MEAN CORPUSCULAR HGB CONC 31.7 g/dl (33.0-37.0); MEAN PLATELET VOLUME 10.8 fl (9.6-12.3); RED BLOOD COUNT 5.22 10*6/uL (4.50-5.90); RED CELL DISTRI WIDTH 13.2 % (0-14.5); WHITE BLOOD COUNT 6.5 10*3/uL (4.8-10.8)
[2019-10-30 10:27] LABS: ALBUMIN 3.8 gm/dl (3.1-4.5); ALKALINE PHOSPHATASE 123 U/L (45-117); BUN 17 mg/dl (7-24); CHLORIDE 106 mmol/L (98-107); CHOLESTEROL 170 mg/dL (<200); CREATININE 1.34 mg/dL (0.70-1.30); HDL CHOLESTEROL 36 mg/dl (40-60); LDL CHOLESTEROL 97 mg/dL (9-159); POTASSIUM 4.6 mmol/L (3.5-5.1); SGOT/AST 24 IU/L (3-35); SGPT/ALT 42 U/L (12-78); SODIUM 139 mmol/L (136-145); TOTAL PROTEIN 8.2 gm/dL (6.4-8.2); TRIGLYCERIDES 185 mg/dl (<150); VLDL CHOLESTEROL 37 mg/dL (6-40)
== END | disposition home or self-care (01) ==
LOC: LAB 09:06
PROVIDERS: Registered Nurse Flight
DX: Z12.5 Encounter for screening for malignant neoplasm of prostate (principal); E11.65 Type 2 diabetes mellitus with hyperglycemia; I10 Essential (primary) hypertension; E78.2 Mixed hyperlipidemia

== ENCOUNTER → 2019-11-16 | Outpatient (CLI) | payer OTHER ==
[2019-11-16 08:46] LABS: BASO # 0.1 10*3/uL (0.0-0.1); BASO % 0.8 % (0.0-1.0); EOS # 0.2 10*3/uL (0.0-0.4); EOS % 3.5 % (1.0-4.0); HEMATOCRIT 45.6 % (42.0-52.0); HEMOGLOBIN 14.4 g/dl (14.0-18.0); LYMPH # 1.9 10*3/uL (1.3-4.4); LYMPH % 32.2 % (27.0-41.0); MEAN CELL VOLUME 89.2 fl (80.0-94.0); MEAN CORPUSCULAR HGB 28.2 pg (27.0-31.0); MEAN CORPUSCULAR HGB CONC 31.6 g/dl (33.0-37.0); MEAN PLATELET VOLUME 10.1 fl (9.6-12.3); MONO # 0.5 10*3/uL (0.1-1.0); MONO % 8.3 % (3.0-9.0); NEUT # 3.3 10*3/uL (2.3-7.9); PLATELET COUNT AUTOMATED 328 10*3/uL (130-400); RED BLOOD COUNT 5.11 10*6/uL (4.50-5.90); RED CELL DISTRI WIDTH 13.1 % (0-14.5); WHITE BLOOD COUNT 5.9 10*3/uL (4.8-10.8)
[2019-11-16 09:17] LABS: ALBUMIN 3.6 gm/dl (3.1-4.5); ALKALINE PHOSPHATASE 90 U/L (45-117); BUN 20 mg/dl (7-24); CHLORIDE 106 mmol/L (98-107); CREATININE 1.47 mg/dL (0.70-1.30); POTASSIUM 4.6 mmol/L (3.5-5.1); SGOT/AST 19 IU/L (3-35); SGPT/ALT 41 U/L (12-78); SODIUM 140 mmol/L (136-145); TOTAL PROTEIN 7.4 gm/dL (6.4-8.2)
== END | disposition home or self-care (01) ==
LOC: LAB 08:29
PROVIDERS: Internal Medicine
DX: M86.8X7 Other osteomyelitis, ankle and foot (principal)

== ENCOUNTER 2019-11-27 12:44 | Inpatient (IN) | payer OTHER ==
[~2019-11-27] VITALS: Ht 168 cm; Wt 81.2 kg
[~2019-11-27 12:44] MED LIST changes: +NEURONTIN600 MG PO
[2019-11-27 12:52] VITALS: BP 125/74
[2019-11-27 14:26] LABS: BASO % 0.5 % (0.0-1.0); EOS # 0.2 10*3/uL (0.0-0.4); EOS % 2.2 % (1.0-4.0); HEMATOCRIT 44.7 % (42.0-52.0); HEMOGLOBIN 14.3 g/dl (14.0-18.0); LYMPH # 1.9 10*3/uL (1.3-4.4); LYMPH % 25.3 % (27.0-41.0); MEAN CELL VOLUME 88.7 fl (80.0-94.0); MEAN CORPUSCULAR HGB 28.4 pg (27.0-31.0); MEAN PLATELET VOLUME 10.6 fl (9.6-12.3); MONO # 0.6 10*3/uL (0.1-1.0); MONO % 8.1 % (3.0-9.0); NEUT # 4.9 10*3/uL (2.3-7.9); NEUT % 63.5 % (47.0-73.0); PLATELET COUNT AUTOMATED 264 10*3/uL (130-400); RED BLOOD COUNT 5.04 10*6/uL (4.50-5.90); RED CELL DISTRI WIDTH 13.5 % (0-14.5); WHITE BLOOD COUNT 7.7 10*3/uL (4.8-10.8)
[2019-11-27 14:36] LABS: ACT PARTIAL THROMBO TIME 24.7 SECONDS (20.0-32.1); INTERNATIONAL NORM RATIO 0.9 (2.0-3.5)
[2019-11-27 14:49] LABS: ALBUMIN 3.8 gm/dl (3.1-4.5); ALKALINE PHOSPHATASE 81 U/L (45-117); BUN 16 mg/dl (7-24); CHLORIDE 102 mmol/L (98-107); CREATININE 1.36 mg/dL (0.70-1.30); POTASSIUM 4.1 mmol/L (3.5-5.1); SGOT/AST 18 IU/L (3-35); SGPT/ALT 38 U/L (12-78); SODIUM 135 mmol/L (136-145); TOTAL PROTEIN 7.8 gm/dL (6.4-8.2)
[2019-11-27 15:10] VITALS: BP 108/77; BP 113/68
--- NOTE | 2019-11-27 15:10 | NUR ---
Time: 1509 A 44 year old MALE admitted to 5E under services of CARLEEN RICE DO, Pt. arrived via stretcher from ER. Chief complaint: CHARLENE HERRERA
[2019-11-27] MEDS ORDERED: TRESIBA100 UNIT/1 SQ (15:50)
[2019-11-27] MEDS ORDERED: TRAZODONE50 MG PO (15:51)
[2019-11-27] MEDS ORDERED: PROZAC20 MG PO (15:52)
--- NOTE | 2019-11-27 16:33 | NUR ---
CALLED DR. PHILIP WITH DR. WOLF. AWARE OF CONSULT. HE ALREADY SEEN HIM.
--- NOTE | 2019-11-27 16:35 | NUR ---
CALLED DR. DUNLAP ANSWERING SERVICE THEY WILL BEEP HER FOR CONSULT.
--- NOTE | 2019-11-27 17:05 | NUR ---
CALLED DR. MCCARTY MADE AWARE MEDICATION VERIFIED WITH AND PHARMACY AND NEED ORDERED.
--- NOTE | 2019-11-27 19:00 | NUR ---
REPORT RECEIVED. PT LYING IN BED AT THIS TIME. VOICES NO COMPLAINTS, CALL LIGHT IN REACH
[2019-11-27 20:00] VITALS: BP 131/89
--- NOTE | 2019-11-27 22:00 | NUR ---
PT WATCHING TV AT THIS TIME. NO COMPLAINTS VOICED, CALL LIGHT IN REACH
[2019-11-28] VITALS: BP 114/72
--- NOTE | 2019-11-28 01:00 | NUR ---
PT SLEEPING AT THIS TIME.
--- NOTE | 2019-11-28 03:00 | NUR ---
PT SLEEPING AT THIS TIME, CALL LIGHT IN REACH
--- NOTE | 2019-11-28 04:54 | NUR ---
DR. REGALADO NOTIFIED OF NEED FOR PICC ORDER
--- NOTE | 2019-11-28 04:59 | NUR ---
24 HR chart check completed.
--- NOTE | 2019-11-28 06:59 | NUR ---
Spoke with Dr. Pettit regarding dressing changes to bilateral feet and he stated that podiatry will manage the dressings.
[2019-11-28 07:02] LABS: BASO % 0.4 % (0.0-1.0); EOS # 0.3 10*3/uL (0.0-0.4); EOS % 3.6 % (1.0-4.0); HEMATOCRIT 42.9 % (42.0-52.0); HEMOGLOBIN 13.8 g/dl (14.0-18.0); LYMPH % 28.4 % (27.0-41.0); MEAN CELL VOLUME 88.6 fl (80.0-94.0); MEAN CORPUSCULAR HGB 28.5 pg (27.0-31.0); MEAN CORPUSCULAR HGB CONC 32.2 g/dl (33.0-37.0); MONO # 0.7 10*3/uL (0.1-1.0); MONO % 9.9 % (3.0-9.0); NEUT % 57.6 % (47.0-73.0); PLATELET COUNT AUTOMATED 260 10*3/uL (130-400); RED BLOOD COUNT 4.84 10*6/uL (4.50-5.90); RED CELL DISTRI WIDTH 13.4 % (0-14.5); WHITE BLOOD COUNT 6.9 10*3/uL (4.8-10.8)
[2019-11-28 07:13] LABS: INTERNATIONAL NORM RATIO 0.9 (2.0-3.5)
[2019-11-28 07:38] LABS: ALBUMIN 3.2 gm/dl (3.1-4.5); ALKALINE PHOSPHATASE 69 U/L (45-117); BUN 17 mg/dl (7-24); CHLORIDE 108 mmol/L (98-107); CREATININE 1.31 mg/dL (0.70-1.30); PHOSPHOROUS 3.2 mg/dL (2.5-4.9); POTASSIUM 3.7 mmol/L (3.5-5.1); SGOT/AST 18 IU/L (3-35); SGPT/ALT 33 U/L (12-78); SODIUM 141 mmol/L (136-145); TOTAL PROTEIN 6.6 gm/dL (6.4-8.2)
[2019-11-28 07:45] LABS: THYROID STIM HORMONE (HS) 0.654 uIU/ml (0.358-4.75)
[2019-11-28 08:00] VITALS: BP 119/82
--- NOTE | 2019-11-28 08:00 | NUR ---
PHYSICAL THERAPY Screen and eval received will follow thank you Tricia Johnson PT
--- NOTE | 2019-11-28 08:00 | NUR ---
PT RESTING IN BED. RESP-EASY AND REGULAR. NO C/O AT THIS TIME. NO C/O AT THIS TIME. DRESSING LEFT FOOT D/I. CALL LIGHT IN REACH. SEE SHIFT ASSESSMENT.
--- NOTE | 2019-11-28 08:22 | NUR ---
Nursing screen and occupational therapy orders received. Will follow up with patient for completion of OT evaluation. Thank you. Janett Parekh, OTR/L
--- NOTE | 2019-11-28 08:33 | NUR ---
VIPIN QUINONES [id number] Please refer to the physician's history and physical for past medical history, comorbid conditions, and allergies. Diagnosis: SENT BY [facility] CELLULITIS OF LEFT Mark Score: 18,AT RISK WOUND DESCRIPTIONS: This nurse went to evaluate patient's skin impairment. He stated he follows with Dr. Holbrook and will continue to do so upon discharge. He is scheduled for surgery on at 11:30. Podiatry is managing dressing changes. Scant amount of strike through drainage noted. Patient states he has areas to both feet and believes this all started back in August or September but is unsure of the exact date. Surface the patient is resting on: Proform SKIN PREVENTION RECOMMENDATION: 1. Pressure redistribution support surface as appropriate 2. Elevate heels 3. Remove boots/TEDS every shift and reapply 4. Head of bed 30 degrees as tolerated 5. Assess nutrition and hydration 6. Manage moisture 7. Avoid the use of containment devices while in bed 8. Use absorptive products on surfaces limit layers of linens on bed 9. Turn and reposition every 1-2 hours in bed and every 1 hour in chair as tolerated 10. Weight shifts every 15 minutes while up in chair 11. Offloading with pillows or device to keep heels elevated off bed 12. Monitor skin at least every shift 13. Inspect under medical devices twice a day WOUND TREATMENT RECOMMENDATIONS: Patient will continue to follow with podiatry inpatient and outpatient. Heel raiser pro boots to bilateral feet while in bed
--- NOTE | 2019-11-28 09:00 | NUR ---
Insurance Territory Manager in to talk to patient. Patient states lives at home with family. There are no steps in the home. Physician: norma johnson Pharmacy: [facility] Home health services: none at present Patient's level of ADLs: MINIMAL ASSIST Patient has working utilities: all working DME: Follow-up physician's appointment after d/c: will be made by [facility] nurse director upon discharge Does patient want to access PORTAL?: no Discharge plan discussed with patient he lives at home with his , he states he gets around, drives, he states he had OV in the past and would like their services again, case management will send a referral to [facility] for when patient is medically stable for discharge, case management will follow. MAIDA VARGAS
--- NOTE | 2019-11-28 09:23 | NUR ---
Dr. Boothe notified of wound care recommendations
--- NOTE | 2019-11-28 10:20 | NUR ---
Physical Therapy evaluation completed on 5th floor with full evaluation to follow. Recommend physical therapy per plan of care. Home with Home Health vs SNF at discharge pending progress with activity after surgical procedure tomorrow. Discussed/educated reg NWB of LLE and RLE weightbearing only through heel at this time will await for any changes in orders after surgery. Thank you for this referral. Tricia Johnson PT
--- NOTE | 2019-11-28 10:20 | NUR ---
Occupational Therapy evaluation completed on five with full evaluation to follow. Recommend occupational therapy per plan of care and home with HH OT, PT, and SN verus SNF pending patient's progression. Patient would like to return home. OTR discussed with case management about receiving a w/c for long distance mobility due to patient's WB status- NWB LLE and WB only to heel RLE. Thank you for this referral. Janett Parekh, OTR/L
--- NOTE | 2019-11-28 10:30 | NUR ---
PHYSICAL THERAPY IN WITH PT. NO C/O AT THIS TIME. CALL LIGHT IN REACH.
--- NOTE | 2019-11-28 11:06 | NUR ---
Occupational Therapist in to discuss discharge plan for this patient. Stating patient only has partial weight bearing on one heel and he is in need of a wheel chair for home. Hospitalists office notified.
--- NOTE | 2019-11-28 11:30 | NUR ---
BSG-178, SEE EMAR. NO C/O AT THIS TIME. CALL LIGHT IN REACH.
[2019-11-28 12:00] VITALS: BP 102/72
--- NOTE | 2019-11-28 13:48 | NUR ---
PT SITTING UP AT SIDE OF BED. TOLERATED ROUTINE IV MEDICATION. CALL LIGHT IN REACH.
[2019-11-28 16:00] VITALS: BP 126/71
--- NOTE | 2019-11-28 16:00 | NUR ---
PT RESTING IN BED. RESP-EASY AND REGULAR. TOLERATING IV ANTIBIOTICS WITH NO PROBLEM. CALL LIGHT IN REACH. SEE SHIFT ASSESSMENT.
--- NOTE | 2019-11-28 19:00 | NUR ---
REPORT RECEIVED FROM DAYLIGHT NURSE. PT AWAKE AT THIS TIME, VOICES NO COMPLAINTS, CALL LIGHT IN REACH
[2019-11-28 20:00] VITALS: BP 120/73
--- NOTE | 2019-11-28 21:00 | NUR ---
PT TALKING ON PHONE AT THIS TIME. CALL LIGHT IN REACH
--- NOTE | 2019-11-28 23:00 | NUR ---
PT SLEEPING AT THIS TIME. NO S/S OF DISTRESS NOTED, CALL LIGHT IN REACH
[2019-11-29] VITALS (8 sets, daily range): BP systolic 100–131; BP diastolic 57–90
--- NOTE | 2019-11-29 04:00 | NUR ---
24 HR chart check completed.
[2019-11-29 06:19] LABS: BASO % 0.5 % (0.0-1.0); EOS # 0.3 10*3/uL (0.0-0.4); EOS % 3.3 % (1.0-4.0); HEMATOCRIT 43.3 % (42.0-52.0); HEMOGLOBIN 13.8 g/dl (14.0-18.0); LYMPH # 1.9 10*3/uL (1.3-4.4); LYMPH % 24.8 % (27.0-41.0); MEAN CELL VOLUME 88.4 fl (80.0-94.0); MEAN CORPUSCULAR HGB 28.2 pg (27.0-31.0); MEAN CORPUSCULAR HGB CONC 31.9 g/dl (33.0-37.0); MEAN PLATELET VOLUME 10.6 fl (9.6-12.3); MONO # 0.6 10*3/uL (0.1-1.0); MONO % 7.9 % (3.0-9.0); NEUT # 4.9 10*3/uL (2.3-7.9); NEUT % 63.1 % (47.0-73.0); PLATELET COUNT AUTOMATED 286 10*3/uL (130-400); RED CELL DISTRI WIDTH 13.2 % (0-14.5); WHITE BLOOD COUNT 7.8 10*3/uL (4.8-10.8)
[2019-11-29 06:41] LABS: BUN 17 mg/dl (7-24); CHLORIDE 107 mmol/L (98-107); CREATININE 1.36 mg/dL (0.70-1.30); POTASSIUM 4.1 mmol/L (3.5-5.1); SODIUM 140 mmol/L (136-145)
--- NOTE | 2019-11-29 08:15 | NUR ---
OT NOTE Pt was seen this A.M. 1:1 for 15 minute OT session. Upon arrival pt was supine in bed. Pt identified by name and and had no complaints at this time other than "discomfort" in his L foot. Pt transferred supine to sit EOB with supervision. While sitting EOB pt was able to verbalize NWB to LLE and WBAT to R heel. Pt donned B socks with supervision. Sit to stand completed from bed level with SBA and use of w/w. Functional mobility was then completed to the bathroom and back with SBA and use of w/w for UE support. Throughout pt was 100% compliant with weight bearing status. Pt required verbal prompts throughout for slowing down due to being impuslive and increasing risk of falls. Pt was left sitting upright in the bedside chair with call light in hand, tray table in place, and phone in reach. Continue with POC as able. SOFI Richardson
--- NOTE | 2019-11-29 08:15 | NUR ---
OT NOTE Pt was seen this A.M. 1:1 for 15 minute OT session. Upon arrival pt was supine in bed. Pt identified by name and and had complaints of 5/10 L foot pain. Pt presented to therapy with continuous 7L-O2 via NC which he remained on throughout the entire session. Pt transferred supine to sit EOB with SBA. While sitting pt donned B slippers with supervision. Sit to stand completed SBA and use of w/w for UE support. Functional mobility was then completed to the bathroom with SBA and use of w/w, throughout pt had one LOB that occured and was able to be self corrected. Pt transferred on/off standard commode with SBA. Functional mobility was then completed back to the recliner with SBA and use of w/w due to complaints of feeling SOB. Pt's SpO2 dropped to 78% and heart rate 108 bpm. After aprox 2 minutes pt's SpO2 raised to 93% and heart rate 96 bpm. Pt was left sitting upright in the recliner with call light in hand, tray table in place, and under patient aide care. Continue with POC as able. SKYLAR Richardson/Eyad
--- NOTE | 2019-11-29 08:30 | NUR ---
PT RESTING IN BED. WAS UP WITH PHYSICAL THERAPY IN HALLWAY WITH WALKER. NO C/O AT THIS TIME. TOLERATING IV ANTIBIOTICS WITH NO PROBLEM. CALL LIGHT IN REACH. SEE SHIFT ASSESSMENT.
--- NOTE | 2019-11-29 08:46 | NUR ---
PHYSICAL THERAPY TREATMENT TIME: OUT 8:14 AM Patient presented to therapy in supine with no spO2 AND REPORT OF minimal pain in bilateral feet. Patient says he is suppossed to have surgery today ON BOTH FEET. Patient gives informed consent for treatment. Patient was identified by name and on wristband. Patient transfers supine to sitting on EOB with SBA. Patient sit to stand from EOB with SBA. Patient is NWB on the L LE and heel only wt bearing on the R LE. Patient ambulated with Walker and CGA- SBA for 50' x 2 with one standing rest break at 50' Patient sit<>stand low chair SBA. Patient was left in bedside chair with call light within reach. Patient was 1;1 with this COGNOS ADMINISTRATOR for 16 minutes total. MANSI ESCALERA COGNOS ADMINISTRATOR
--- NOTE | 2019-11-29 09:00 | NUR ---
case management visits with patient, he is scheduled for surgery today and will return home with OV when medically stable, case management will follow
--- NOTE | 2019-11-29 10:38 | NUR ---
SURGERY ON THE FLOOR TO TAKE PT VIA BED.
--- NOTE | 2019-11-29 13:36 | NUR ---
PT STILL IN SURGERY.
--- NOTE | 2019-11-29 16:00 | NUR ---
BSG-151, SEE EMAR. NO C/O AT THIS TIME. ICE TO LEFT FOOT. TOLERATING IV ANTIBIOTICS WITH NO PROBLEM. DRESSING LEFT FOOT D/I. CALL LIGHT IN REACH.
--- NOTE | 2019-11-29 18:34 | NUR ---
MEDICATED WITH NORCO FOR BURNING ACHING PAIN IN SURGICAL FOOT - RATES 06/28.
--- NOTE | 2019-11-29 19:00 | NUR ---
REPORT RECEIVED. PT WATCHING TV AT THIS TIME. NO COMPLAINTS VOICED. DRESSING INTACT. CALL LIGHT IN REACH
--- NOTE | 2019-11-29 21:00 | NUR ---
PT LYING IN BED ON PHONE. NO COMPLAINTS.
--- NOTE | 2019-11-29 23:00 | NUR ---
PT SLEEPING AT THIS TIME.
[2019-11-30] VITALS: BP 111/79
--- NOTE | 2019-11-30 01:19 | NUR ---
24 HR chart check completed.
--- NOTE | 2019-11-30 05:00 | NUR ---
NORCO APPEARS EFFECTIVE, PT SLEEPING
--- NOTE | 2019-11-30 07:10 | NUR ---
ARRIVED ON SHIFT, INTRODUCED TO PATIENT, BED IN LOW POSITION, WHEELLOCKS ENGAGED, CALL LIGHT WITHIN REACH, EDUCATED ON NWB STATUS, VERSED UNDERSTANDING, NO NEEDS VOICED AT THIS TIME, WHITE BOARD UPDATED.
[2019-11-30 08:00] VITALS: BP 114/85
--- NOTE | 2019-11-30 08:10 | NUR ---
Shift chart check completed.
--- NOTE | 2019-11-30 08:58 | NUR ---
PATIENT C/O LEFT FOOT PAIN 7/10 MEDICATED WITH NORCO ORDERED, WHITE BOARD UPDATED, WILL ASSESS IN 1 HOUR.
--- NOTE | 2019-11-30 09:36 | NUR ---
PHYSICAL THERAPY TREATMENT TIME: OUT 8:40 AM Patient presented to therapy in supine with head of bed elevated and no bed alarm on. Patient gives informed consent for treatment. Patient was identified by name and on wristband. Patient performed bed mobility with SBA. Patient sit to stand from EOB with SBA. Patient ambulated with Walker and Close Supervision for 40' x 1 and NWB on the L LE. Patient does not think he needs therapy at this time because he does everrything himself. Patient is wt. bearing on R LE through the heel only. Patient in NWB on L LE. Patient was left sitting on EOB with call light within reach. Patient was 1:1 with this COTTON DISPATCHER for 15 minutes. MANSI ESCALERA COTTON DISPATCHER
--- NOTE | 2019-11-30 09:40 | NUR ---
OT NOTE PATIENT SEEN 1:1 OT THIS DATE. COMPLETED 10 MINUTES OT THIS DATE.PATIENT IDENTIFIED BY NAME AND DATE OF . PATIENT RELUCTANT BUT WILLING TO COMPLETE THERAPY AFTER EDUCATION. PATIENT COMPLETED SIT TO STAND FROM BED SBA GOOD CARRYOVER NWB LLE AND RIGHT HEEL WEIGHT BEARING. COMPLETED FUNCTIONAL AMBULATION USE FWW TO AND FROM BATHROOM SBA NO LOB. PATIENT COMPLETED LB DRESSING LA AND REPORTS NO ISSUE UB DRESSING. PATIENT EDUCATED FWW SAFETY ESPECIALLY WITH TRANSPORTING ITEMS WITH PATIENT VERBALIZING UNDERSTANDING. PATIENT STATED NO FURTHER NEEDS. CONTINUE TOWARDS PLAN OF CARE. CALL LIGHT WITHIN REACH. ANDREAS CHENG/Eyad
--- NOTE | 2019-11-30 09:57 | NUR ---
PATIENT REPORTS NORCO MINIMALLY EFFECTIVE, PAIN NOW /
[2019-11-30 12:00] VITALS: BP 126/80
--- NOTE | 2019-11-30 14:16 | NUR ---
CALL PLACED TO PHARMACY, SPOKE WITH ASA, REQUESTED PATIENTS IV VANC BE SENT, ADVISED THEY WILL DELIVER.
--- NOTE | 2019-11-30 15:16 | NUR ---
OCCUPATIONAL THERAPY CO-SIGN I approve of the Occupational Therapy notes written above. HAM SAENZ OTR/Eyad
[2019-11-30 16:00] VITALS: BP 131/88
--- NOTE | 2019-11-30 16:19 | NUR ---
PATIENT C/O RIGHT FOOT PAIN 8 MEDICATED WITH NORCO ORDERED, WHITE BOARD UPDATED.
--- NOTE | 2019-11-30 17:19 | NUR ---
PATIENT REPORTS MODERATE RELIEF FROM NORCO GIVEN X 1 HOUR AGO.
[2019-11-30 20:00] VITALS: BP 127/89
--- NOTE | 2019-11-30 22:08 | NUR ---
RESTORIL GIVEN FOR INSOMNIA AND NORCO GIVEN FOR PAIN LOCATED IN LEFT FOOT RATED 7/10 PER PATIENT REQUEST. WILL ASSESS EFFECTIVENESS.
[2019-12-01] VITALS: BP 114/69
--- NOTE | 2019-12-01 00:36 | NUR ---
PRN MEDICATIONS EFFECTIVE PER PATIENT. NO SIGNS/SYMPTOMS OF DISTRESS. VITAL SIGNS STABLE. WILL CONTINUE TO MONITOR.
--- NOTE | 2019-12-01 03:17 | NUR ---
Patient resting quietly with no c/o discomfort. Respirations easy and regular. Vital signs stable. No overt distress. DOMENIC WOOD
--- NOTE | 2019-12-01 03:17 | NUR ---
24 HR chart check completed.
--- NOTE | 2019-12-01 03:26 | NUR ---
FLUSHED BOTH PICC LUMENS BEFORE HANGING PATIENT VANCOMYCIN. BOTH PATENT. DID NOT SCAN FLUSH, DOCUMENTED WITH BARCODE IN EMAR.
--- NOTE | 2019-12-01 07:10 | NUR ---
ARRIVED ON SHIFT, INTRODUCED TO PATIENT, BED IN LOW POSITION, WHEEL LOCKS ENGAGED, CALL LIGHT WITHI REACH, NO NEEDS VOICED AT THIS TIOME, WHITE BOARD UPDATED.
--- NOTE | 2019-12-01 07:40 | NUR ---
PATIENT C/O RIGHT FOOT RATES PAIN THROBBING LIKE A TOOTH ACHE, MEDICATED WITH NORCO ORDERED WHITE BOARD UPDATED.
[2019-12-01 08:00] VITALS: BP 141/81
--- NOTE | 2019-12-01 08:40 | NUR ---
PATIENT REPORTS MINIMAL RELIEF FROM NORCO GIVEN X 1 HOUR AGO
[2019-12-01] MEDS ORDERED: ERTAPENEM1 GM IV (11:01)
[2019-12-01] MEDS ORDERED: CUBICIN RF500 MG IV (11:03)
[2019-12-01 12:00] VITALS: BP 136/76
--- NOTE | 2019-12-01 12:31 | NUR ---
PHYSICAL THERAPY CERTIFIED FAMILY MEDIATOR attempted to see patient this date- however, patient informed this CERTIFIED FAMILY MEDIATOR he did not need therapy because he was able to do everything independently. Tawny Lindsey, CERTIFIED FAMILY MEDIATOR.
--- NOTE | 2019-12-01 13:07 | NUR ---
PATIENT C/O OF FOOT PAIN RATES 7/10 MEDICATED WITH NORCO ORDERED.
[2019-12-01 16:00] VITALS: BP 157/87
[2019-12-01 19:06] LABS: ACID FAST SPEC PROCESSING Tissue Grinding (.)
[2019-12-01 19:06] LABS: ACID FAST SPEC PROCESSING Tissue Grinding (.)
[2019-12-01 20:00] VITALS: BP 138/88
--- NOTE | 2019-12-01 21:28 | NUR ---
RESTORIL FOR INSOMNIA AND NORCO FOR PAIN IN LEFT FOOT RATED 7/10 GIVEN PER PATIENT REQUEST. ANABELLE ASSESS EFFECTIVENESS.
[2019-12-02] VITALS: BP 156/86
--- NOTE | 2019-12-02 07:00 | NUR ---
ARRIVED ON SHIFT, INTRODUCED TO PATIENT, BED IN LOW POSITION, WHEEL LOCKS ENGAGED, SR UP X 2 FOR TURNING AND REPOSITION, CALL LIGHT WITHIN REACH, NO NEEDS VOICED AT THIS TIME, WHITE BOARD UPDATED.
--- NOTE | 2019-12-02 07:42 | NUR ---
Shift chart check completed.
[2019-12-02 08:00] VITALS: BP 123/88
--- NOTE | 2019-12-02 10:04 | NUR ---
PATIENT C/O RLE JC RATES 03/28 MEDEICATED WITH NORCO ORDERED.
--- NOTE | 2019-12-02 11:03 | NUR ---
MINIMAL RELIEF FROM NORCO GIVEN X 1 HOUR AGO CONTINUES TO RATE PAIN RIGHT FOOT 5/10
[2019-12-02 12:00] VITALS: BP 123/88
[2019-12-02 16:00] VITALS: BP 144/94
--- NOTE | 2019-12-02 16:32 | NUR ---
PATIENT CONTINUES WITH ONGOING RIGHT FOOT PAIN, MEDICATED WITH NORCO ORDERED.
--- NOTE | 2019-12-02 17:32 | NUR ---
PATIENT REPORTS MINIMAL EFFECT FROM NORCO GIVEN X 1 HOUR AGO, STATES TAKES THE EDGE OFF.
--- NOTE | 2019-12-02 19:41 | NUR ---
24 HR chart check completed.
[2019-12-02 20:00] VITALS: BP 139/95; BP 142/88
--- NOTE | 2019-12-02 21:00 | NUR ---
RESTING IN BED. RESPIRATIONS EASY. LUNGS DIMINISHED, CLEAR. PULSE OX 96% RA. TRACE LLE EDEMA NOTED WITH DRESSING IN PLACE. TOES WARM AND WIGGLE FREELY. PICC LINE INTACT RIGHT UPPER ARM. CALL LIGHT WITHIN REACH. NO VOICED COMPLAINTS
--- NOTE | 2019-12-02 21:45 | NUR ---
REQUESTED AND RECEIVED NORCO PER PRN ORDER FOR COMPLAINTS OF LEFT FOOT PAIN RATING A 9. CALL LIGHT WITHIN REACH. WILL MONITOR
--- NOTE | 2019-12-02 23:00 | NUR ---
STATES RELIEF FROM EARLIER MEDS. RESPIRATIONS EASY. CALL LIGHT WITHIN REACH. NO FURTHER VOICED COMPLAINTS
[2019-12-03] VITALS: BP 142/81
--- NOTE | 2019-12-03 | NUR ---
RESTING IN BED WITH NO ACUTE DISTRESS NOTED. RESPIRATIONS EASY. VSS. DRESSING INTACT LEFT FOOT. CALL LIGHT WITHIN REACH. NO VOICED COMPLAINTS
--- NOTE | 2019-12-03 04:25 | NUR ---
MEDICATED WITH NORCO PER PRN ORDER FOR COMPLAINTS OF LEFT FOOT PAIN RATING A 7. CALL LIGHT WITHIN REACH. WILL MONITOR FOR EFFECTIVENESS
--- NOTE | 2019-12-03 05:00 | NUR ---
earlier norco appears effective. sleeping. respirations easy. call light within reach
[2019-12-03 06:39] LABS: CREATININE 1.07 mg/dL (0.70-1.30)
[2019-12-03 06:40] LABS: BASO # 0.1 10*3/uL (0.0-0.1); BASO % 0.9 % (0.0-1.0); EOS # 0.4 10*3/uL (0.0-0.4); EOS % 6.5 % (1.0-4.0); HEMATOCRIT 38.5 % (42.0-52.0); HEMOGLOBIN 12.5 g/dl (14.0-18.0); LYMPH % 34.4 % (27.0-41.0); MEAN CELL VOLUME 87.1 fl (80.0-94.0); MEAN CORPUSCULAR HGB 28.3 pg (27.0-31.0); MEAN CORPUSCULAR HGB CONC 32.5 g/dl (33.0-37.0); MEAN PLATELET VOLUME 10.6 fl (9.6-12.3); MONO # 0.6 10*3/uL (0.1-1.0); MONO % 11.1 % (3.0-9.0); NEUT # 2.6 10*3/uL (2.3-7.9); NEUT % 46.2 % (47.0-73.0); PLATELET COUNT AUTOMATED 232 10*3/uL (130-400); RED BLOOD COUNT 4.42 10*6/uL (4.50-5.90); RED CELL DISTRI WIDTH 13.1 % (0-14.5); WHITE BLOOD COUNT 5.7 10*3/uL (4.8-10.8)
--- NOTE | 2019-12-03 07:00 | NUR ---
ARRIVED ON SHIFT, INTRODUCED TO PATIENT, BED IN LOW POSITION, WHEEL LOCKS ENGAGED, SIDE RAILS UP X 2 FOR TURNING AND REPOSITIONING, CALL LIGHT WITHIN REACH, NO NEEDS VOICED AT THIS TIME, WHITE BOARD UPDATED.
[2019-12-03 08:00] VITALS: BP 138/83
--- NOTE | 2019-12-03 08:26 | NUR ---
Shift chart check completed.
--- NOTE | 2019-12-03 10:45 | NUR ---
REFERRAL FOR HOME IV ANTIBIOTICS FAXED TO [facility]. THEY ARE CHECKING TO SEE IF PT WILL HAVE ANY COST FOR SERVICES.
--- NOTE | 2019-12-03 11:02 | NUR ---
OT NOTE PATIENT SEEN 1:1 OT THIS DATE. PATIENT IDENTIFIED BY NAME AND DATE OF . COMPLETED 10 MINUTES OF OT THIS DATE. COMPLETED SUPINE TO SIT EOB OR. COMPLETED SIT TO STAND FROM BED OR. COMPLETED FUNCTIONAL AMBULATION USE FWW SUPPORT OR TO AND FROM [id number]. COMPLETED TOILET TRANSFER OR THIS DATE. PATIENT REPORTS NO ISSUES UB/LB ADL STATING HE ALREADY CHANGED INTO CLEAN CLOTHES TODAY. PATIENT IN BED END OF SESSION CALL LIGHT IN REACH AND NO FURTHER NEEDS VERBALIZED. PATIENT DEMONSTRATED GOOD CARRYOVR NWB LLE AND WB HEEL LEFT FOOT. CONTINUE TOWARDS PLAN OF CARE. ANDREAS FARAH
--- NOTE | 2019-12-03 11:34 | NUR ---
PHYSICAL THERAPY Patient seen this am 1:1 for therapy visit and was sitting up on EOB upon therapist arrival. Patient identified by name / and was quite pleasant this morning. Patient was Independent this session with all transfers / mobilty with use of wh walker, NWB on L LE, demonstrating Good safety awareness and 100% compliance with NWB status, 30'x 2. Patient returned to EOB sit and remained with call light, tray table and telephone. Will continue per POC as needed, total treatment time 14 minutes. Clif Magallon, STAFF ANTISUBMARINE OFFICER
[2019-12-03 12:00] VITALS: BP 146/97
--- NOTE | 2019-12-03 14:41 | NUR ---
SPOKE WITH MADDIE AT [facility] AND HEAVEN FROM [facility]. IV ANTIBIOTICS WILL BE DELIVERED BY NOON TOMORROW PER [facility]. [facility] WILL SEE PT TOMORROW TO BEGIN IV INFUSIIONS. DR RIVERA INFORMED PT CAN BE DISCHARGED TONIGHT AND ANTIBIOTICS WILL BE STARTED TOMORROW. STAFF ON 4E NOTIFIED.
[2019-12-03 16:00] VITALS: BP 160/103
--- NOTE | 2019-12-03 16:53 | NUR ---
PATIENT C/O LEFT FOOT PAIN 6/ MEDICATED WITH NORCO ORDERED PRN.
--- NOTE | 2019-12-03 17:53 | NUR ---
PATIENT REPORTS MINIMAL EFFECT FROM NORCO GIVEN X 1 HOUR AGO.
--- NOTE | 2019-12-03 18:10 | NUR ---
A 44, admitted to 4E, under the services of CARLEEN Rice DO with a diagnosis of DYSPNEA, FAILURE OUTPATIENT TREATMENT, PNEUMONITIS. Chief complaint is SOB. Patient arrived via wheel chair from ER. Monitor applied. Initial assessment completed. Vital signs taken and recorded. CARLEEN RICE DO notified of admission to the unit. Orders received. See assessment for past medical history, medications and allergies. Patient and/or family oriented to unit. [facility] visitation policy reviewed. Clothing/patient valuable form completed. BIJAN CORTEZ
--- NOTE | 2019-12-03 19:17 | NUR ---
24 HR chart check completed.
[2019-12-03 20:00] VITALS: BP 135/90
--- NOTE | 2019-12-03 20:00 | NUR ---
SITTING UP IN BED WITH NO DISTRESS NOTED. RESPIRATIONS EASY. LUNGS DIMINISHED, CLEAR. PULSE OX 99% RA. DRESSING DRY AND INTACT TO LEFT FOOT. CALL LIGHT WITHIN REACH. NO VOICED COMPLAINTS
--- NOTE | 2019-12-03 21:23 | NUR ---
REQUESTED AND RECEIVED NORCO PER PRN ORDER FOR COMPLAINTS OF LEFT FOOT PAIN RATING A 7. CALL LIGHT WITHIN REACH. WILL MONITOR FOR EFFECTIVENESS
--- NOTE | 2019-12-03 23:00 | NUR ---
STATES RELIEF FROM EARLIER MEDS. CALL LIGHT WITHIN REACH. NO FURTHER VOICED COMPLAINTS
[2019-12-04] VITALS: BP 140/88; BP 146/93
--- NOTE | 2019-12-04 | NUR ---
REMAINS AWAKE. RESTING WITH NO DISTRESS NOTED. RESPIRATIONS EASY. VSS. CALL LIGHT WITHIN REACH. NO FURTHER VOICED COMPLAINTS
--- NOTE | 2019-12-04 03:15 | NUR ---
MEDICATED WITH NORCO PER PRN ORDER FOR COMPLAINTS OF LEFT FOOT PAIN RATING A 5. CALL LIGHT WITHIN REACH. WILL MONITOR FOR EFFECTIVENESS
--- NOTE | 2019-12-04 04:00 | NUR ---
MEDS APPEAR EFFECTIVE. SLEEPING. RESPIRATIONS EASY. CALL LIGHT WITHIN REACH
--- NOTE | 2019-12-04 05:39 | NUR ---
REQUESTED AND RECEIVED TYLENOL PER PRN ORDER FOR COMPLAINTS OF HEADACHE RATING A 4. CALL LIGHT WITHIN REACH. WILL MONITOR FOR EFFECTIVENESS
--- NOTE | 2019-12-04 06:15 | NUR ---
RESTING WITH EYES CLOSED. STATES RELIEF FROM EARLIER MEDS. CALL LIGHT WITHIN REACH. NO FURTHER VOICED COMPLAINTS
[2019-12-04 08:00] VITALS: BP 130/90
--- NOTE | 2019-12-04 08:55 | NUR ---
NORCO GIVEN FOR C/OLT FOOT PAIN. RATES 5/10 ON PAIN SCALE. WILL MONITOR.
--- NOTE | 2019-12-04 09:00 | NUR ---
case management visits with patient, he will be discharged to home today, his home iv medication will be deliverd to his home by noon today, [facility] will also see [facility] at [facility] today, patient had no other needs at this time
--- NOTE | 2019-12-04 09:22 | NUR ---
[facility] Discharge instructions reviewed with patient/family. Patient receptive and verbalizes understanding. Follow-up care arranged. Written instructions given to patient/family. KAREN LEONE
--- NOTE | 2019-12-05 07:54 | NUR ---
PHYSICAL THERAPY CO-SIGN I approve of the Phyical Therapy notes written above. Tricia Johnson PT
--- NOTE | 2019-12-05 08:07 | NUR ---
OCCUPATIONAL THERAPY CO-SIGN I approve of the Occupational Therapy notes written above. Janett Parekh, OTR/L
--- NOTE | 2019-12-05 08:10 | NUR ---
OCCUPATIONAL THERAPY CO-SIGN I approve of the Occupational Therapy notes written above. Janett Parekh, OTR/L
== END 2019-12-04 09:00 | disposition home or self-care (01) | DRG 314 ==
LOC: ED 12:44 → 5E 14:13 → 4E 14:13 → EDHOLD 14:13 → 5E 14:56 → 4E 12-02 19:18
PROVIDERS: Emergency Medicine; Podiatrist; Student in an Organized Health Care Education/Training Program; ADMIT Internal Medicine
PROC: 02HV33Z Insertion of Infusion Device into Superior Vena Cava, Percutaneous Approach (ICD-10-PCS; 2019-11-28)
PROC: 0Y6U0Z0 Detachment at Left 3rd Toe, Complete, Open Approach (ICD-10-PCS; principal; 2019-11-29)
DX: E11.628 Type 2 diabetes mellitus with other skin complications (principal); K21.9 Gastro-esophageal reflux disease without esophagitis; M86.172 Other acute osteomyelitis, left ankle and foot; L03.116 Cellulitis of left lower limb; E87.1 Hypo-osmolality and hyponatremia; E11.65 Type 2 diabetes mellitus with hyperglycemia; N17.0 Acute kidney failure with tubular necrosis; E83.41 Hypermagnesemia; E87.2 Acidosis; E78.5 Hyperlipidemia, unspecified; I50.32 Chronic diastolic (congestive) heart failure; E78.1 Pure hyperglyceridemia; G47.00 Insomnia, unspecified; M19.90 Unspecified osteoarthritis, unspecified site; I11.0 Hypertensive heart disease with heart failure; E11.42 Type 2 diabetes mellitus with diabetic polyneuropathy; L08.9 Local infection of the skin and subcutaneous tissue, unspecified; E11.621 Type 2 diabetes mellitus with foot ulcer; L97.529 Non-pressure chronic ulcer of other part of left foot with unspecified severity; F32.9 Major depressive disorder, single episode, unspecified; E66.3 Overweight; Z79.2 Long term (current) use of antibiotics; Z79.4 Long term (current) use of insulin; Z79.899 Other long term (current) drug therapy; Z90.49 Acquired absence of other specified parts of digestive tract; Z82.49 Family history of ischemic heart disease and other diseases of the circulatory system; Z82.3 Family history of stroke; Z68.28 Body mass index [BMI] 28.0-28.9, adult

== ENCOUNTER → 2020-03-25 | Outpatient (CLI) | payer OTHER ==
[~2020-03-25] MED LIST changes: +CUBICIN RF500 MG IV; +ERTAPENEM1 GM IV; +PROZAC20 MG PO; +TRESIBA100 UNIT/1 SQ
== END | disposition home or self-care (01) ==
LOC: US 11:00
DX: R60.0 Localized edema (principal)

== ENCOUNTER → 2020-03-31 | Outpatient (CLI) | payer OTHER ==
[~2020-03-31] MED LIST changes: +CALAMINE LOTIO177 M3 T; +FENOFIBRATE145 M1 PO; +FLUOXETINE HCL10 M1 PO; +METOCLOPRAMIDE10 M1 PO; +PREDNISONE5 MG PO; +REGLAN10 M1 PO; +XARELTO10 MG PO
[2020-03-31 09:38] LABS: ALBUMIN 3.5 gm/dl (3.1-4.5); ALKALINE PHOSPHATASE 81 U/L (45-117); BUN 22 mg/dl (7-24); CHLORIDE 106 mmol/L (98-107); CHOLESTEROL 168 mg/dL (<200); CREATININE 1.27 mg/dL (0.70-1.30); SGOT/AST 16 IU/L (3-35); SGPT/ALT 28 U/L (12-78); SODIUM 138 mmol/L (136-145); TOTAL PROTEIN 7.8 gm/dL (6.4-8.2); TRIGLYCERIDES 111 mg/dl (<150); VLDL CHOLESTEROL 22 mg/dL (6-40)
[2020-03-31 09:41] LABS: HDL CHOLESTEROL 41 mg/dl (40-60); LDL CHOLESTEROL 105 mg/dL (9-159)
== END | disposition home or self-care (01) ==
LOC: LAB 08:15
PROVIDERS: Registered Nurse Flight
DX: Z12.5 Encounter for screening for malignant neoplasm of prostate (principal); E11.65 Type 2 diabetes mellitus with hyperglycemia; N52.9 Male erectile dysfunction, unspecified; E78.2 Mixed hyperlipidemia

== ENCOUNTER 2020-04-01 12:01 | Inpatient (IN) | payer OTHER ==
[~2020-04-01] VITALS: Ht 170.1 cm; Wt 83.7 kg
[~2020-04-01 12:01] MED LIST changes: -CALAMINE LOTIO177 M3 T; -FENOFIBRATE145 M1 PO; -FLUOXETINE HCL10 M1 PO; -METOCLOPRAMIDE10 M1 PO; -PREDNISONE5 MG PO; -REGLAN10 M1 PO; -XARELTO10 MG PO
[2020-04-01 12:11] VITALS: BP 132/92
[2020-04-01 13:11] LABS: BASO % 0.2 % (0.0-1.0); EOS # 0.1 10*3/uL (0.0-0.4); EOS % 1.1 % (1.0-4.0); HEMATOCRIT 44.2 % (42.0-52.0); LYMPH # 1.9 10*3/uL (1.3-4.4); LYMPH % 20.3 % (27.0-41.0); MEAN CELL VOLUME 88.8 fl (80.0-94.0); MEAN CORPUSCULAR HGB 28.3 pg (27.0-31.0); MEAN CORPUSCULAR HGB CONC 31.9 g/dl (33.0-37.0); MEAN PLATELET VOLUME 10.1 fl (9.6-12.3); MONO # 0.6 10*3/uL (0.1-1.0); MONO % 6.3 % (3.0-9.0); NEUT # 6.6 10*3/uL (2.3-7.9); NEUT % 71.8 % (47.0-73.0); PLATELET COUNT AUTOMATED 307 10*3/uL (130-400); RED BLOOD COUNT 4.98 10*6/uL (4.50-5.90); RED CELL DISTRI WIDTH 13.2 % (0-14.5); WHITE BLOOD COUNT 9.2 10*3/uL (4.8-10.8)
[2020-04-01 13:20] LABS: ACT PARTIAL THROMBO TIME 24.6 SECONDS (20.0-32.1)
[2020-04-01 13:28] LABS: ALBUMIN 3.3 gm/dl (3.1-4.5); ALKALINE PHOSPHATASE 73 U/L (45-117); BUN 16 mg/dl (7-24); CHLORIDE 105 mmol/L (98-107); CREATININE 1.32 mg/dL (0.70-1.30); LIPASE 59 U/L (73-393); POTASSIUM 3.6 mmol/L (3.5-5.1); SGOT/AST 19 IU/L (3-35); SGPT/ALT 28 U/L (12-78); SODIUM 136 mmol/L (136-145); TOTAL PROTEIN 7.4 gm/dL (6.4-8.2)
[2020-04-01 13:30] LABS: TROPONIN I < 0.015 ng/ml (<0.045)
[2020-04-01 14:23] VITALS: BP 132/91
[2020-04-01] MEDS ORDERED: FENOFIBRATE145 M1 PO (15:25)
[2020-04-01 16:00] VITALS: BP 148/85
[2020-04-01 20:00] VITALS: BP 158/102
[2020-04-01 21:00] VITALS: BP 138/61
[2020-04-01 21:15] VITALS: BP 156/94
[2020-04-01 21:50] LABS: BILIRUBIN NEGATIVE (NEGATIVE); BLOOD NEGATIVE (NEGATIVE); CLARITY CLEAR (CLEAR); COLOR YELLOW (YELLOW); GLUCOSE 2+ (NEGATIVE); KETONE NEGATIVE (NEGATIVE); LEUKO ESTERASE NEGATIVE (NEGATIVE); NITRITE NEGATIVE (NEGATIVE); PH 6.5 (5.0-9.0); RBC 0-2 rbc/hpf (0-2); SPECIFIC GRAVITY 1.015 (1.005-1.030); UROBILINOGEN 0.2 E.U./dl (0.2-1.0); WBC 0-2 wbc/hpf (0-5)
[2020-04-02] VITALS: BP 136/88
[2020-04-02 07:36] LABS: BASO % 0.5 % (0.0-1.0); EOS # 0.2 10*3/uL (0.0-0.4); EOS % 2.6 % (1.0-4.0); HEMATOCRIT 41.2 % (42.0-52.0); LYMPH # 1.8 10*3/uL (1.3-4.4); LYMPH % 23.8 % (27.0-41.0); MEAN CELL VOLUME 91.8 fl (80.0-94.0); MEAN CORPUSCULAR HGB CONC 31.6 g/dl (33.0-37.0); MEAN PLATELET VOLUME 10.9 fl (9.6-12.3); MONO # 0.5 10*3/uL (0.1-1.0); MONO % 6.2 % (3.0-9.0); NEUT % 66.5 % (47.0-73.0); NUCLEATED RED BLOOD CELL 0.3 % (0.0-0.0); PLATELET COUNT AUTOMATED 233 10*3/uL (130-400); RED BLOOD COUNT 4.49 10*6/uL (4.50-5.90); RED CELL DISTRI WIDTH 13.2 % (0-14.5); WHITE BLOOD COUNT 7.4 10*3/uL (4.8-10.8)
[2020-04-02 08:00] VITALS: BP 132/94
[2020-04-02 08:03] LABS: ALKALINE PHOSPHATASE 63 U/L (45-117); BUN 12 mg/dl (7-24); CHLORIDE 110 mmol/L (98-107); FREE T4 1.08 ng/dl (0.76-1.46); POTASSIUM 3.8 mmol/L (3.5-5.1); SGOT/AST 17 IU/L (3-35); SGPT/ALT 23 U/L (12-78); SODIUM 137 mmol/L (136-145); TOTAL PROTEIN 6.4 gm/dL (6.4-8.2)
[2020-04-02 08:08] LABS: THYROID STIM HORMONE (HS) 0.554 uIU/ml (0.358-4.75)
[2020-04-02 08:09] LABS: VITAMIN D, 25-HYDROXY 29.3 ng/mL (30-100)
[2020-04-02 08:18] LABS: ALBUMIN 2.8 gm/dl (3.1-4.5)
[2020-04-02 12:00] VITALS: BP 130/88
[2020-04-02 16:00] VITALS: BP 144/90
[2020-04-02 20:00] VITALS: BP 154/95
[2020-04-03] VITALS (8 sets, daily range): BP systolic 105–160; BP diastolic 69–100
[2020-04-04] VITALS: BP 155/102
[2020-04-04 06:54] LABS: BASO % 0.2 % (0.0-1.0); EOS # 0.2 10*3/uL (0.0-0.4); EOS % 1.3 % (1.0-4.0); HEMATOCRIT 47.2 % (42.0-52.0); LYMPH # 1.8 10*3/uL (1.3-4.4); LYMPH % 13.7 % (27.0-41.0); MEAN CORPUSCULAR HGB 28.8 pg (27.0-31.0); MEAN CORPUSCULAR HGB CONC 32.6 g/dl (33.0-37.0); MEAN PLATELET VOLUME 10.1 fl (9.6-12.3); MONO # 0.9 10*3/uL (0.1-1.0); NEUT # 10.2 10*3/uL (2.3-7.9); NEUT % 77.3 % (47.0-73.0); RED BLOOD COUNT 5.35 10*6/uL (4.50-5.90); RED CELL DISTRI WIDTH 13.2 % (0-14.5); WHITE BLOOD COUNT 13.2 10*3/uL (4.8-10.8)
[2020-04-04 06:55] LABS: PLATELET COUNT AUTOMATED 389 10*3/uL (130-400)
[2020-04-04 06:56] LABS: MEAN CELL VOLUME 88.2 fl (80.0-94.0)
[2020-04-04 07:09] LABS: ALBUMIN 2.9 gm/dl (3.1-4.5); CHLORIDE 107 mmol/L (98-107); CREATININE 1.18 mg/dL (0.70-1.30); POTASSIUM 4.2 mmol/L (3.5-5.1); SGOT/AST 14 IU/L (3-35); SODIUM 138 mmol/L (136-145)
[2020-04-04 07:12] LABS: ALKALINE PHOSPHATASE 103 U/L (45-117); BUN 18 mg/dl (7-24); SGPT/ALT 24 U/L (12-78); TOTAL PROTEIN 6.9 gm/dL (6.4-8.2)
[2020-04-04 08:00] VITALS: BP 136/90
[2020-04-04 12:00] VITALS: BP 141/86
[2020-04-04 12:11] LABS: ACID FAST SPEC PROCESSING Tissue Grinding (.)
[2020-04-04 16:00] VITALS: BP 165/94
[2020-04-04 20:00] VITALS: BP 158/92
[2020-04-05] VITALS: BP 150/93
[2020-04-05 06:20] LABS: BASO # 0.1 10*3/uL (0.0-0.1); BASO % 0.4 % (0.0-1.0); EOS # 0.2 10*3/uL (0.0-0.4); EOS % 1.8 % (1.0-4.0); HEMATOCRIT 46.4 % (42.0-52.0); LYMPH % 15.4 % (27.0-41.0); MEAN CELL VOLUME 88.9 fl (80.0-94.0); MEAN CORPUSCULAR HGB 29.3 pg (27.0-31.0); MEAN PLATELET VOLUME 10.1 fl (9.6-12.3); MONO # 0.9 10*3/uL (0.1-1.0); MONO % 7.3 % (3.0-9.0); NEUT # 9.6 10*3/uL (2.3-7.9); NEUT % 74.5 % (47.0-73.0); PLATELET COUNT AUTOMATED 362 10*3/uL (130-400); RED BLOOD COUNT 5.22 10*6/uL (4.50-5.90); RED CELL DISTRI WIDTH 13.2 % (0-14.5); WHITE BLOOD COUNT 12.9 10*3/uL (4.8-10.8)
[2020-04-05 06:48] LABS: BUN 16 mg/dl (7-24); CHLORIDE 106 mmol/L (98-107); CREATININE 1.19 mg/dL (0.70-1.30); POTASSIUM 4.1 mmol/L (3.5-5.1); SODIUM 141 mmol/L (136-145)
[2020-04-05 08:00] VITALS: BP 113/92
[2020-04-05 12:00] VITALS: BP 151/98
[2020-04-05 16:00] VITALS: BP 124/97
[2020-04-05 20:00] VITALS: BP 144/104; BP 146/90
[2020-04-06] VITALS: BP 154/94
[2020-04-06 06:40] LABS: BASO % 0.4 % (0.0-1.0); EOS # 0.4 10*3/uL (0.0-0.4); EOS % 4.3 % (1.0-4.0); HEMATOCRIT 40.9 % (42.0-52.0); LYMPH # 1.5 10*3/uL (1.3-4.4); LYMPH % 16.1 % (27.0-41.0); MEAN CELL VOLUME 90.9 fl (80.0-94.0); MEAN CORPUSCULAR HGB 29.3 pg (27.0-31.0); MEAN CORPUSCULAR HGB CONC 32.3 g/dl (33.0-37.0); MONO # 0.8 10*3/uL (0.1-1.0); NEUT # 6.5 10*3/uL (2.3-7.9); NEUT % 69.3 % (47.0-73.0); PLATELET COUNT AUTOMATED 284 10*3/uL (130-400); RED CELL DISTRI WIDTH 13.2 % (0-14.5); WHITE BLOOD COUNT 9.3 10*3/uL (4.8-10.8)
[2020-04-06 06:54] LABS: ALBUMIN 2.3 gm/dl (3.1-4.5); ALKALINE PHOSPHATASE 80 U/L (45-117); BUN 14 mg/dl (7-24); CHLORIDE 109 mmol/L (98-107); CREATININE 0.94 mg/dL (0.70-1.30); POTASSIUM 3.7 mmol/L (3.5-5.1); SGOT/AST 13 IU/L (3-35); SGPT/ALT 18 U/L (12-78); SODIUM 139 mmol/L (136-145); TOTAL PROTEIN 5.7 gm/dL (6.4-8.2)
[2020-04-06 08:00] VITALS: BP 131/86
[2020-04-06 12:00] VITALS: BP 135/66
[2020-04-06 16:00] VITALS: BP 137/97
[2020-04-06 20:00] VITALS: BP 146/94
[2020-04-07] VITALS: BP 136/85
[2020-04-07 07:21] LABS: BASO # 0.1 10*3/uL (0.0-0.1); BASO % 0.6 % (0.0-1.0); EOS # 0.6 10*3/uL (0.0-0.4); EOS % 4.5 % (1.0-4.0); HEMATOCRIT 46.1 % (42.0-52.0); LYMPH # 2.4 10*3/uL (1.3-4.4); LYMPH % 19.3 % (27.0-41.0); MEAN CELL VOLUME 89.5 fl (80.0-94.0); MEAN CORPUSCULAR HGB 28.9 pg (27.0-31.0); MEAN CORPUSCULAR HGB CONC 32.3 g/dl (33.0-37.0); MEAN PLATELET VOLUME 10.3 fl (9.6-12.3); MONO % 8.5 % (3.0-9.0); NEUT # 8.2 10*3/uL (2.3-7.9); NEUT % 66.6 % (47.0-73.0); RED BLOOD COUNT 5.15 10*6/uL (4.50-5.90); RED CELL DISTRI WIDTH 13.1 % (0-14.5); WHITE BLOOD COUNT 12.3 10*3/uL (4.8-10.8)
[2020-04-07 07:27] LABS: PLATELET COUNT AUTOMATED 408 10*3/uL (130-400)
[2020-04-07 07:31] LABS: ALBUMIN 2.8 gm/dl (3.1-4.5); ALKALINE PHOSPHATASE 111 U/L (45-117); BUN 13 mg/dl (7-24); CHLORIDE 108 mmol/L (98-107); CREATININE 1.11 mg/dL (0.70-1.30); POTASSIUM 3.8 mmol/L (3.5-5.1); SGOT/AST 17 IU/L (3-35); SGPT/ALT 24 U/L (12-78); SODIUM 139 mmol/L (136-145); TOTAL PROTEIN 6.9 gm/dL (6.4-8.2)
[2020-04-07 08:00] VITALS: BP 143/91
[2020-04-07 12:00] VITALS: BP 147/94
[2020-04-07] MEDS ORDERED: XARELTO10 MG PO (13:04)
[2020-04-07 20:00] VITALS: BP 146/91
[2020-04-08] VITALS: BP 150/95
[2020-04-08 08:00] VITALS: BP 109/70; BP 127/80
[2020-04-08 12:00] VITALS: BP 133/80
[2020-04-08 16:00] VITALS: BP 140/86
[2020-04-08] MEDS ORDERED: DOXYCYCLINE100 M3 PO (16:38)
[2020-04-08 20:00] VITALS: BP 150/88
[2020-04-09] VITALS: BP 142/86
[2020-04-09 07:44] LABS: ALBUMIN 2.3 gm/dl (3.1-4.5); ALKALINE PHOSPHATASE 122 U/L (45-117); BUN 16 mg/dl (7-24); CHLORIDE 107 mmol/L (98-107); CREATININE 1.06 mg/dL (0.70-1.30); POTASSIUM 3.8 mmol/L (3.5-5.1); SGOT/AST 24 IU/L (3-35); SGPT/ALT 28 U/L (12-78); SODIUM 141 mmol/L (136-145); TOTAL PROTEIN 5.9 gm/dL (6.4-8.2)
[2020-04-09 07:50] LABS: BASO % 0.4 % (0.0-1.0); EOS # 0.5 10*3/uL (0.0-0.4); EOS % 4.5 % (1.0-4.0); HEMATOCRIT 37.8 % (42.0-52.0); LYMPH # 2.4 10*3/uL (1.3-4.4); LYMPH % 24.4 % (27.0-41.0); MEAN CELL VOLUME 90.2 fl (80.0-94.0); MEAN CORPUSCULAR HGB 29.1 pg (27.0-31.0); MEAN CORPUSCULAR HGB CONC 32.3 g/dl (33.0-37.0); MEAN PLATELET VOLUME 10.5 fl (9.6-12.3); MONO # 0.8 10*3/uL (0.1-1.0); NEUT # 6.1 10*3/uL (2.3-7.9); PLATELET COUNT AUTOMATED 331 10*3/uL (130-400); RED BLOOD COUNT 4.19 10*6/uL (4.50-5.90); WHITE BLOOD COUNT 9.9 10*3/uL (4.8-10.8)
[2020-04-09 08:00] VITALS: BP 142/88
[2020-04-09] MEDS ORDERED: CALAMINE LOTIO177 M3 T (08:48)
[2020-04-09] MEDS ORDERED: METOCLOPRAMIDE10 M1 PO (08:48)
[2020-04-09] MEDS ORDERED: Carafate1 GM PO (08:49)
[2020-04-09] MEDS ORDERED: PREDNISONE5 MG PO (08:50)
[2020-04-09] MEDS ORDERED: FLUOXETINE HCL10 M1 PO (10:07)
[2020-04-09] MEDS ORDERED: REGLAN10 M1 PO (10:10)
[2020-04-09 12:00] VITALS: BP 134/82
== END 2020-04-09 12:20 | disposition home or self-care (01) | DRG 314 ==
LOC: ED 12:01 → EDHOLD 13:54 → 5E 13:54
PROVIDERS: Emergency Medicine; Internal Medicine; Podiatrist; Registered Nurse; Student in an Organized Health Care Education/Training Program; ADMIT Internal Medicine
PROC: 0Y6R0Z3 Detachment at Right 2nd Toe, Low, Open Approach (ICD-10-PCS; principal; 2020-04-03)
PROC: 0Y6S0Z0 Detachment at Left 2nd Toe, Complete, Open Approach (ICD-10-PCS; 2020-04-03)
DX: E11.69 Type 2 diabetes mellitus with other specified complication (principal); E11.621 Type 2 diabetes mellitus with foot ulcer; K21.9 Gastro-esophageal reflux disease without esophagitis; M86.172 Other acute osteomyelitis, left ankle and foot; E78.1 Pure hyperglyceridemia; E11.40 Type 2 diabetes mellitus with diabetic neuropathy, unspecified; I50.32 Chronic diastolic (congestive) heart failure; F32.9 Major depressive disorder, single episode, unspecified; E44.0 Moderate protein-calorie malnutrition; L97.524 Non-pressure chronic ulcer of other part of left foot with necrosis of bone; I13.0 Hypertensive heart and chronic kidney disease with heart failure and stage 1 through stage 4 chronic kidney disease, or unspecified chronic kidney disease; E11.22 Type 2 diabetes mellitus with diabetic chronic kidney disease; L03.115 Cellulitis of right lower limb; M19.90 Unspecified osteoarthritis, unspecified site; E78.5 Hyperlipidemia, unspecified; K92.2 Gastrointestinal hemorrhage, unspecified; D64.9 Anemia, unspecified; E11.65 Type 2 diabetes mellitus with hyperglycemia; L97.514 Non-pressure chronic ulcer of other part of right foot with necrosis of bone; R21 Rash and other nonspecific skin eruption; N18.3 Chronic kidney disease, stage 3 (moderate); E55.9 Vitamin D deficiency, unspecified; R19.7 Diarrhea, unspecified; E11.43 Type 2 diabetes mellitus with diabetic autonomic (poly)neuropathy; K31.84 Gastroparesis; Z79.4 Long term (current) use of insulin; Z90.49 Acquired absence of other specified parts of digestive tract; Z82.3 Family history of stroke; Z82.49 Family history of ischemic heart disease and other diseases of the circulatory system; Z79.899 Other long term (current) drug therapy; Z68.28 Body mass index [BMI] 28.0-28.9, adult

== ENCOUNTER 2020-04-13 15:10 | Inpatient (IN) | payer OTHER ==
[~2020-04-13] VITALS: Ht 170 cm; Wt 81.7 kg
[~2020-04-13 15:10] MED LIST changes: +CALAMINE LOTIO177 M3 T; +FENOFIBRATE145 M1 PO; +FLUOXETINE HCL10 M1 PO; +METOCLOPRAMIDE10 M1 PO; +PREDNISONE5 MG PO; +REGLAN10 M1 PO; +XARELTO10 MG PO
[2020-04-13 15:34] VITALS: BP 129/91
[2020-04-13 16:12] LABS: BASO # 0.1 10*3/uL (0.0-0.1); BASO % 0.5 % (0.0-1.0); EOS # 0.2 10*3/uL (0.0-0.4); EOS % 0.9 % (1.0-4.0); HEMATOCRIT 47.3 % (42.0-52.0); LYMPH # 2.6 10*3/uL (1.3-4.4); LYMPH % 13.2 % (27.0-41.0); MEAN CELL VOLUME 88.4 fl (80.0-94.0); MEAN CORPUSCULAR HGB 28.8 pg (27.0-31.0); MEAN CORPUSCULAR HGB CONC 32.6 g/dl (33.0-37.0); MEAN PLATELET VOLUME 9.9 fl (9.6-12.3); MONO # 1.1 10*3/uL (0.1-1.0); MONO % 5.8 % (3.0-9.0); NEUT # 15.5 10*3/uL (2.3-7.9); NEUT % 78.4 % (47.0-73.0); PLATELET COUNT AUTOMATED 544 10*3/uL (130-400); RED BLOOD COUNT 5.35 10*6/uL (4.50-5.90); RED CELL DISTRI WIDTH 12.6 % (0-14.5); WHITE BLOOD COUNT 19.7 10*3/uL (4.8-10.8)
[2020-04-13 16:24] LABS: ACT PARTIAL THROMBO TIME 24.5 SECONDS (20.0-32.1)
[2020-04-13 16:29] LABS: ALBUMIN 2.7 gm/dl (3.1-4.5); ALKALINE PHOSPHATASE 163 U/L (45-117); BUN 20 mg/dl (7-24); CHLORIDE 109 mmol/L (98-107); LIPASE 60 U/L (73-393); POTASSIUM 3.9 mmol/L (3.5-5.1); SGOT/AST 35 IU/L (3-35); SGPT/ALT 45 U/L (12-78); SODIUM 138 mmol/L (136-145); TOTAL PROTEIN 6.9 gm/dL (6.4-8.2)
[2020-04-13 18:45] VITALS: BP 127/81
[2020-04-13 20:00] VITALS: BP 130/87
[2020-04-14] VITALS: BP 128/81
[2020-04-14 02:36] LABS: BILIRUBIN NEGATIVE (NEGATIVE); CLARITY CLEAR (CLEAR); COLOR YELLOW (YELLOW); GLUCOSE 3+ (NEGATIVE); KETONE NEGATIVE (NEGATIVE)
[2020-04-14 02:37] LABS: BLOOD NEGATIVE (NEGATIVE); NITRITE NEGATIVE (NEGATIVE); UROBILINOGEN 0.2 E.U./dl (0.2-1.0)
[2020-04-14 02:38] LABS: LEUKO ESTERASE NEGATIVE (NEGATIVE)
[2020-04-14 02:43] LABS: EPITHELIAL CELLS 0-2; RBC 0-2 rbc/hpf (0-2)
[2020-04-14 02:44] LABS: BACTERIA TRACE
[2020-04-14 06:35] LABS: BASO # 0.1 10*3/uL (0.0-0.1); BASO % 0.5 % (0.0-1.0); EOS # 0.3 10*3/uL (0.0-0.4); EOS % 2.2 % (1.0-4.0); HEMATOCRIT 41.2 % (42.0-52.0); LYMPH # 2.4 10*3/uL (1.3-4.4); LYMPH % 17.7 % (27.0-41.0); MEAN CELL VOLUME 88.8 fl (80.0-94.0); MEAN CORPUSCULAR HGB 28.9 pg (27.0-31.0); MEAN CORPUSCULAR HGB CONC 32.5 g/dl (33.0-37.0); MEAN PLATELET VOLUME 9.8 fl (9.6-12.3); MONO # 0.9 10*3/uL (0.1-1.0); MONO % 6.8 % (3.0-9.0); NEUT # 9.8 10*3/uL (2.3-7.9); NEUT % 71.3 % (47.0-73.0); PLATELET COUNT AUTOMATED 462 10*3/uL (130-400); RED BLOOD COUNT 4.64 10*6/uL (4.50-5.90); RED CELL DISTRI WIDTH 12.9 % (0-14.5); WHITE BLOOD COUNT 13.8 10*3/uL (4.8-10.8)
[2020-04-14 06:54] LABS: ALBUMIN 2.3 gm/dl (3.1-4.5); BUN 18 mg/dl (7-24); CHLORIDE 111 mmol/L (98-107); POTASSIUM 3.7 mmol/L (3.5-5.1); SODIUM 141 mmol/L (136-145)
[2020-04-14 06:58] LABS: ALKALINE PHOSPHATASE 159 U/L (45-117); CREATININE 1.06 mg/dL (0.70-1.30); SGOT/AST 22 IU/L (3-35); SGPT/ALT 36 U/L (12-78); TOTAL PROTEIN 5.9 gm/dL (6.4-8.2)
[2020-04-14 08:00] VITALS: BP 117/88
[2020-04-14 12:00] VITALS: BP 132/93
[2020-04-14 16:00] VITALS: BP 145/99
[2020-04-14 20:00] VITALS: BP 150/98
[2020-04-15] VITALS: BP 142/93
[2020-04-15 06:16] LABS: BASO # 0.1 10*3/uL (0.0-0.1); BASO % 0.6 % (0.0-1.0); EOS # 0.4 10*3/uL (0.0-0.4); EOS % 3.6 % (1.0-4.0); HEMATOCRIT 35.5 % (42.0-52.0); LYMPH # 1.7 10*3/uL (1.3-4.4); LYMPH % 16.1 % (27.0-41.0); MEAN CELL VOLUME 89.2 fl (80.0-94.0); MEAN CORPUSCULAR HGB 28.6 pg (27.0-31.0); MEAN CORPUSCULAR HGB CONC 32.1 g/dl (33.0-37.0); MONO # 0.7 10*3/uL (0.1-1.0); NEUT # 7.4 10*3/uL (2.3-7.9); NEUT % 71.4 % (47.0-73.0); PLATELET COUNT AUTOMATED 367 10*3/uL (130-400); RED BLOOD COUNT 3.98 10*6/uL (4.50-5.90); RED CELL DISTRI WIDTH 12.7 % (0-14.5); WHITE BLOOD COUNT 10.4 10*3/uL (4.8-10.8)
[2020-04-15 06:24] LABS: ALKALINE PHOSPHATASE 152 U/L (45-117); BUN 12 mg/dl (7-24); CHLORIDE 113 mmol/L (98-107); CREATININE 0.79 mg/dL (0.70-1.30); POTASSIUM 3.5 mmol/L (3.5-5.1); SGOT/AST 23 IU/L (3-35); SGPT/ALT 37 U/L (12-78); SODIUM 141 mmol/L (136-145); TOTAL PROTEIN 4.8 gm/dL (6.4-8.2)
[2020-04-15 08:00] VITALS: BP 121/86
[2020-04-15 12:00] VITALS: BP 109/69
[2020-04-15 16:00] VITALS: BP 112/73
[2020-04-15 20:00] VITALS: BP 119/72
[2020-04-16] VITALS: BP 88/56
[2020-04-16 07:36] LABS: BASO # 0.1 10*3/uL (0.0-0.1); BASO % 0.9 % (0.0-1.0); EOS # 0.3 10*3/uL (0.0-0.4); EOS % 4.4 % (1.0-4.0); HEMATOCRIT 34.5 % (42.0-52.0); LYMPH # 1.8 10*3/uL (1.3-4.4); LYMPH % 26.2 % (27.0-41.0); MEAN CELL VOLUME 90.8 fl (80.0-94.0); MEAN CORPUSCULAR HGB 28.9 pg (27.0-31.0); MEAN CORPUSCULAR HGB CONC 31.9 g/dl (33.0-37.0); MEAN PLATELET VOLUME 10.2 fl (9.6-12.3); MONO # 0.5 10*3/uL (0.1-1.0); NEUT # 4.2 10*3/uL (2.3-7.9); NEUT % 60.2 % (47.0-73.0); PLATELET COUNT AUTOMATED 367 10*3/uL (130-400); RED CELL DISTRI WIDTH 12.6 % (0-14.5)
[2020-04-16 08:00] VITALS: BP 112/64
[2020-04-16 08:08] LABS: ALKALINE PHOSPHATASE 170 U/L (45-117); BUN 5 mg/dl (7-24); CHLORIDE 113 mmol/L (98-107); CREATININE 0.96 mg/dL (0.70-1.30); POTASSIUM 3.5 mmol/L (3.5-5.1); SGOT/AST 19 IU/L (3-35); SGPT/ALT 32 U/L (12-78); SODIUM 142 mmol/L (136-145)
[2020-04-16 08:09] LABS: TOTAL PROTEIN 5.3 gm/dL (6.4-8.2)
[2020-04-16 12:00] VITALS: BP 132/90
[2020-04-16 16:00] VITALS: BP 145/86
[2020-04-16 20:00] VITALS: BP 126/74
[2020-04-17] VITALS: BP 140/77
[2020-04-17 08:00] VITALS: BP 131/69
[2020-04-17 12:00] VITALS: BP 148/76
[2020-04-17] MEDS ORDERED: DOXYCYCLINE100 M3 PO (13:18)
== END 2020-04-17 15:08 | disposition home or self-care (01) | DRG 710 ==
LOC: ED 15:10 → EDHOLD 16:24 → 4E 16:24
PROVIDERS: Emergency Medicine; Internal Medicine; Student in an Organized Health Care Education/Training Program; ADMIT Emergency Medicine
PROC: 0HBNXZZ Excision of Left Foot Skin, External Approach (ICD-10-PCS; principal; 2020-04-17)
PROC: 0SBM0ZZ Excision of Right Metatarsal-Phalangeal Joint, Open Approach (ICD-10-PCS; 2020-04-17)
DX: A41.9 Sepsis, unspecified organism (principal); D47.3 Essential (hemorrhagic) thrombocythemia; K21.9 Gastro-esophageal reflux disease without esophagitis; E11.621 Type 2 diabetes mellitus with foot ulcer; F32.9 Major depressive disorder, single episode, unspecified; E11.42 Type 2 diabetes mellitus with diabetic polyneuropathy; I50.32 Chronic diastolic (congestive) heart failure; M19.90 Unspecified osteoarthritis, unspecified site; E78.1 Pure hyperglyceridemia; E44.0 Moderate protein-calorie malnutrition; N18.3 Chronic kidney disease, stage 3 (moderate); R65.20 Severe sepsis without septic shock; K52.9 Noninfective gastroenteritis and colitis, unspecified; K56.7 Ileus, unspecified; L97.509 Non-pressure chronic ulcer of other part of unspecified foot with unspecified severity; E11.22 Type 2 diabetes mellitus with diabetic chronic kidney disease; I13.0 Hypertensive heart and chronic kidney disease with heart failure and stage 1 through stage 4 chronic kidney disease, or unspecified chronic kidney disease; E83.41 Hypermagnesemia; E11.69 Type 2 diabetes mellitus with other specified complication; T81.89XA Other complications of procedures, not elsewhere classified, initial encounter; T85.898A Other specified complication of other internal prosthetic devices, implants and grafts, initial encounter; Y83.8 Other surgical procedures as the cause of abnormal reaction of the patient, or of later complication, without mention of misadventure at the time of the procedure; Y92.89 Other specified places as the place of occurrence of the external cause; M00.9 Pyogenic arthritis, unspecified; M86.8X8 Other osteomyelitis, other site; B37.2 Candidiasis of skin and nail; D64.9 Anemia, unspecified; E11.65 Type 2 diabetes mellitus with hyperglycemia; Z90.49 Acquired absence of other specified parts of digestive tract; Z79.4 Long term (current) use of insulin; Z98.890 Other specified postprocedural states; Z88.8 Allergy status to other drugs, medicaments and biological substances; Z79.899 Other long term (current) drug therapy; Z68.28 Body mass index [BMI] 28.0-28.9, adult

== ENCOUNTER → 2020-09-08 | Outpatient (CLI) | payer OTHER ==
[~2020-09-08] MED LIST changes: +Glimepiride1 MG PO; +MIRAPEX0.5 MG PO; +TRESIBA FL100 UNIT/1 SQ
[2020-09-08 09:23] LABS: BASO % 0.6 % (0.0-1.0); EOS # 0.3 10*3/uL (0.0-0.4); EOS % 3.7 % (1.0-4.0); HEMATOCRIT 46.1 % (42.0-52.0); LYMPH # 2.3 10*3/uL (1.3-4.4); LYMPH % 34.2 % (27.0-41.0); MEAN CELL VOLUME 86.3 fl (80.0-94.0); MEAN CORPUSCULAR HGB 27.7 pg (27.0-31.0); MEAN CORPUSCULAR HGB CONC 32.1 g/dl (33.0-37.0); MEAN PLATELET VOLUME 10.2 fl (9.6-12.3); MONO # 0.5 10*3/uL (0.1-1.0); MONO % 7.5 % (3.0-9.0); NEUT # 3.6 10*3/uL (2.3-7.9); NEUT % 53.6 % (47.0-73.0); PLATELET COUNT AUTOMATED 326 10*3/uL (130-400); RED BLOOD COUNT 5.34 10*6/uL (4.50-5.90); WHITE BLOOD COUNT 6.8 10*3/uL (4.8-10.8)
[2020-09-08 09:32] LABS: ALBUMIN 3.5 gm/dl (3.1-4.5); ALKALINE PHOSPHATASE 73 U/L (45-117); BUN 20 mg/dl (7-24); CHLORIDE 108 mmol/L (98-107); CHOLESTEROL 121 mg/dL (<200); CREATININE 1.34 mg/dL (0.70-1.30); FREE T4 0.93 ng/dl (0.76-1.46); HDL CHOLESTEROL 32 mg/dl (40-60); LDL CHOLESTEROL 55 mg/dL (9-159); POTASSIUM 4.4 mmol/L (3.5-5.1); SGOT/AST 34 IU/L (3-35); SGPT/ALT 36 U/L (12-78); SODIUM 140 mmol/L (136-145); TOTAL PROTEIN 7.7 gm/dL (6.4-8.2); TRIGLYCERIDES 171 mg/dl (<150); VLDL CHOLESTEROL 34 mg/dL (6-40)
[2020-09-08 09:37] LABS: THYROID STIM HORMONE (HS) 0.998 uIU/ml (0.358-4.75)
[2020-09-08 09:49] LABS: BILIRUBIN Negative (Negative); BLOOD Negative (Negative); CLARITY Clear (Clear); COLOR Yellow (Yellow); GLUCOSE 3+ (Negative); KETONE Negative (Negative); LEUKO ESTERASE Negative (Negative); NITRITE Negative (Negative); SPECIFIC GRAVITY >= 1.030 (1.001-1.030); UROBILINOGEN 0.2 E.U./dl (0.0-1.0)
[2020-09-08 10:05] LABS: VITAMIN D, 25-HYDROXY 14.3 ng/mL (30-100)
[2020-09-08 10:19] LABS: EPITHELIAL CELLS 0-2; WBC 0-2 wbc/hpf (0-5)
[2020-09-08 10:20] LABS: BACTERIA TRACE; MUCOUS TRACE
== END | disposition home or self-care (01) ==
LOC: LAB 08:37
PROVIDERS: Internal Medicine; ATTEND Internal Medicine
DX: Z12.5 Encounter for screening for malignant neoplasm of prostate (principal); I10 Essential (primary) hypertension; E78.2 Mixed hyperlipidemia; E55.9 Vitamin D deficiency, unspecified; E78.5 Hyperlipidemia, unspecified; E11.65 Type 2 diabetes mellitus with hyperglycemia; E11.40 Type 2 diabetes mellitus with diabetic neuropathy, unspecified; R79.89 Other specified abnormal findings of blood chemistry; E04.9 Nontoxic goiter, unspecified

== ENCOUNTER → 2020-09-09 | Outpatient (CLI) | payer OTHER | END | disposition home or self-care (01) | LOC: LAB 00:06 | PROVIDERS: ATTEND Internal Medicine | DX: E11.65 Type 2 diabetes mellitus with hyperglycemia (principal); E78.5 Hyperlipidemia, unspecified; E55.9 Vitamin D deficiency, unspecified; E11.40 Type 2 diabetes mellitus with diabetic neuropathy, unspecified; R79.89 Other specified abnormal findings of blood chemistry ==

== ENCOUNTER → 2020-09-30 | Outpatient (CLI) | payer OTHER ==
--- NOTE | 2020-09-30 10:17 | NUR ---
INFORMED CONSENT SIGNED FOR LEXISCAN STRESS TEST WITH DR. ZAPATA. RESTING EKG NSR, HR 91,BP 142/88/
--- NOTE | 2020-09-30 10:19 | NUR ---
INFORMED CONSENT SIGNED FOR LEXISCAN STRESS TEST WITH DR. ZAPATA. RESTING EKG NSR,HR 91, BP 142/88. PULSE OX 97% AND LUNGS CLEAR BILATERALLY. COMPLETED ONE MINUTE OF LEXISCAN PROTOCOL RECEIVING LEXISCAN 0.4MG IV OVER 10 SECONDS. NO ARRHYTHMIAS NOTED. NON DIAGNOTIC ST CHANGES PRESENT. PT HAD LARGE EMESIS. DR. ZAPATA PRESENT AND ORDER ZOFRAN 4MG IV. LAST RECOVERY HR 109, BP 152/88. WAITING NUCLEAR SCANNING IN STABLE CONDITION.
== END | disposition home or self-care (01) ==
LOC: CARD 00:17
PROVIDERS: ATTEND Internal Medicine
DX: R07.89 Other chest pain (principal)

== ENCOUNTER 2020-11-04 11:17 | Inpatient (IN) | payer OTHER ==
[~2020-11-04] VITALS: Ht 170 cm; Wt 91.9 kg
[2020-11-04 11:31] VITALS: BP 145/87
[2020-11-04 12:17] LABS: BASO # 0.1 10*3/uL (0.0-0.1); BASO % 0.6 % (0.0-1.0); EOS # 0.2 10*3/uL (0.0-0.4); EOS % 2.6 % (1.0-4.0); HEMATOCRIT 40.1 % (42.0-52.0); LYMPH % 25.5 % (27.0-41.0); MEAN CELL VOLUME 87.2 fl (80.0-94.0); MEAN CORPUSCULAR HGB CONC 32.2 g/dl (33.0-37.0); MEAN PLATELET VOLUME 9.4 fl (9.6-12.3); MONO # 0.5 10*3/uL (0.1-1.0); MONO % 6.2 % (3.0-9.0); NEUT % 64.3 % (47.0-73.0); PLATELET COUNT AUTOMATED 328 10*3/uL (130-400); RED CELL DISTRI WIDTH 13.2 % (0-14.5); WHITE BLOOD COUNT 7.7 10*3/uL (4.8-10.8)
[2020-11-04 12:33] LABS: ALBUMIN 3.1 gm/dl (3.1-4.5); ALKALINE PHOSPHATASE 113 U/L (45-117); BUN 18 mg/dl (7-24); CHLORIDE 107 mmol/L (98-107); CREATININE 1.21 mg/dL (0.70-1.30); POTASSIUM 4.5 mmol/L (3.5-5.1); SGOT/AST 18 IU/L (3-35); SGPT/ALT 27 U/L (12-78); SODIUM 139 mmol/L (136-145); TOTAL PROTEIN 7.6 gm/dL (6.4-8.2)
[2020-11-04] MEDS ORDERED: GABAPENTIN800 MG PO (16:38)
[2020-11-04] MEDS ORDERED: FENOFIBRATE145 M1 PO (16:39)
[2020-11-04] MEDS ORDERED: TRULICITY0.75 MG/0. SC ×2 (16:40→19:04)
[2020-11-04] MEDS ORDERED: VITAMIN D250 MCG PO (16:41)
[2020-11-04] MEDS ORDERED: TRESIBA100 UNIT/1 SQ ×2 (19:06→19:07)
[2020-11-04] MEDS ORDERED: AMARYL4 MG PO (19:10)
[2020-11-04 21:10] VITALS: BP 168/108
[2020-11-04] MEDS ORDERED: FLAGYL500 MG PO (21:45)
[2020-11-04 21:49] VITALS: BP 168/108
[2020-11-04] MEDS ORDERED: VITAMIN D350 MCG PO (21:49)
[2020-11-04] MEDS ORDERED: CLINDAMYCIN HC300 MG PO (21:49)
[2020-11-04] MEDS ORDERED: TRAZODONE150 MG PO (21:53)
[2020-11-04] MEDS ORDERED: INSULIN LI100 UNIT/2 SQ (21:54)
[2020-11-05] VITALS (11 sets, daily range): BP systolic 105–145; BP diastolic 57–98
[2020-11-06] VITALS: BP 119/71
[2020-11-06 08:00] VITALS: BP 108/76
[2020-11-06 12:00] VITALS: BP 110/68
[2020-11-06 16:00] VITALS: BP 110/68; BP 111/72
[2020-11-06 20:00] VITALS: BP 143/83
[2020-11-07] VITALS: BP 108/69
[2020-11-07 06:12] LABS: BUN 15 mg/dl (7-24); CREATININE 1.25 mg/dL (0.70-1.30)
[2020-11-07 08:00] VITALS: BP 144/93
[2020-11-07 08:58] LABS: BASO % 0.6 % (0.0-1.0); EOS # 0.3 10*3/uL (0.0-0.4); EOS % 3.9 % (1.0-4.0); HEMATOCRIT 44.3 % (42.0-52.0); LYMPH # 2.2 10*3/uL (1.3-4.4); LYMPH % 31.5 % (27.0-41.0); MEAN CELL VOLUME 87.2 fl (80.0-94.0); MEAN CORPUSCULAR HGB 27.6 pg (27.0-31.0); MEAN CORPUSCULAR HGB CONC 31.6 g/dl (33.0-37.0); MEAN PLATELET VOLUME 9.7 fl (9.6-12.3); MONO # 0.6 10*3/uL (0.1-1.0); MONO % 8.3 % (3.0-9.0); NEUT # 3.8 10*3/uL (2.3-7.9); PLATELET COUNT AUTOMATED 312 10*3/uL (130-400); RED BLOOD COUNT 5.08 10*6/uL (4.50-5.90); RED CELL DISTRI WIDTH 13.4 % (0-14.5)
[2020-11-07 12:07] LABS: ACID FAST SPEC PROCESSING Tissue Grinding (.)
[2020-11-07 13:00] VITALS: BP 150/95
[2020-11-07 16:00] VITALS: BP 154/86
[2020-11-07 20:00] VITALS: BP 166/92
[2020-11-08] VITALS: BP 134/92
[2020-11-08 08:00] VITALS: BP 130/87
[2020-11-08 10:32] LABS: BASO # 0.1 10*3/uL (0.0-0.1); BASO % 0.7 % (0.0-1.0); EOS # 0.4 10*3/uL (0.0-0.4); HEMATOCRIT 40.2 % (42.0-52.0); LYMPH # 1.9 10*3/uL (1.3-4.4); LYMPH % 26.2 % (27.0-41.0); MEAN CELL VOLUME 86.6 fl (80.0-94.0); MEAN CORPUSCULAR HGB 27.4 pg (27.0-31.0); MEAN CORPUSCULAR HGB CONC 31.6 g/dl (33.0-37.0); MEAN PLATELET VOLUME 9.8 fl (9.6-12.3); MONO # 0.5 10*3/uL (0.1-1.0); MONO % 7.1 % (3.0-9.0); NEUT # 4.3 10*3/uL (2.3-7.9); NEUT % 60.4 % (47.0-73.0); RED BLOOD COUNT 4.64 10*6/uL (4.50-5.90); RED CELL DISTRI WIDTH 13.4 % (0-14.5); WHITE BLOOD COUNT 7.2 10*3/uL (4.8-10.8)
[2020-11-08 10:34] LABS: PLATELET COUNT AUTOMATED 204 10*3/uL (130-400)
[2020-11-08 12:00] VITALS: BP 130/76
[2020-11-08 16:00] VITALS: BP 126/68
[2020-11-08 20:00] VITALS: BP 134/98
[2020-11-09] VITALS: BP 115/71
[2020-11-09 08:00] VITALS: BP 152/86
[2020-11-09 12:00] VITALS: BP 156/78
[2020-11-09 16:00] VITALS: BP 119/70
[2020-11-09 20:00] VITALS: BP 168/92
[2020-11-10] VITALS: BP 119/74
[2020-11-10 08:00] VITALS: BP 124/81
[2020-11-10 09:23] LABS: BASO # 0.1 10*3/uL (0.0-0.1); BASO % 0.7 % (0.0-1.0); EOS # 0.3 10*3/uL (0.0-0.4); EOS % 4.7 % (1.0-4.0); HEMATOCRIT 40.2 % (42.0-52.0); LYMPH # 2.1 10*3/uL (1.3-4.4); MEAN CELL VOLUME 86.8 fl (80.0-94.0); MEAN CORPUSCULAR HGB 27.6 pg (27.0-31.0); MEAN CORPUSCULAR HGB CONC 31.8 g/dl (33.0-37.0); MEAN PLATELET VOLUME 10.2 fl (9.6-12.3); MONO # 0.6 10*3/uL (0.1-1.0); MONO % 7.9 % (3.0-9.0); NEUT # 4.1 10*3/uL (2.3-7.9); NEUT % 57.3 % (47.0-73.0); PLATELET COUNT AUTOMATED 209 10*3/uL (130-400); RED BLOOD COUNT 4.63 10*6/uL (4.50-5.90); RED CELL DISTRI WIDTH 13.3 % (0-14.5); WHITE BLOOD COUNT 7.2 10*3/uL (4.8-10.8)
[2020-11-10 12:00] VITALS: BP 130/82
[2020-11-10] MEDS ORDERED: UNASYN 3 GM VIAL3 GM IV (14:27)
[2020-12-19 13:07] LABS: ACID FAST CULTURE Negative (.)
== END 2020-11-10 18:15 | disposition home health service (06) | DRG 344 ==
LOC: ED 11:17 → 5E 13:38 → EDHOLD 13:38 → 5E 20:53
PROVIDERS: Nurse Practitioner; Podiatrist; Podiatrist Foot & Ankle Surgery; ADMIT Internal Medicine; ATTEND Internal Medicine
PROC: 0Y9N0ZZ Drainage of Left Foot, Open Approach (ICD-10-PCS; principal; 2020-11-05)
PROC: 0QBP0ZX Excision of Left Metatarsal, Open Approach, Diagnostic (ICD-10-PCS; 2020-11-05)
PROC: 0JBQ0ZZ Excision of Right Foot Subcutaneous Tissue and Fascia, Open Approach (ICD-10-PCS; 2020-11-05)
PROC: 02HV33Z Insertion of Infusion Device into Superior Vena Cava, Percutaneous Approach (ICD-10-PCS; 2020-11-07)
DX: E11.69 Type 2 diabetes mellitus with other specified complication (principal); M86.172 Other acute osteomyelitis, left ankle and foot; E11.42 Type 2 diabetes mellitus with diabetic polyneuropathy; E11.65 Type 2 diabetes mellitus with hyperglycemia; E11.43 Type 2 diabetes mellitus with diabetic autonomic (poly)neuropathy; K31.84 Gastroparesis; E11.621 Type 2 diabetes mellitus with foot ulcer; F33.9 Major depressive disorder, recurrent, unspecified; E78.2 Mixed hyperlipidemia; B95.2 Enterococcus as the cause of diseases classified elsewhere; F33.0 Major depressive disorder, recurrent, mild; F51.01 Primary insomnia; K21.00 Gastro-esophageal reflux disease with esophagitis, without bleeding; E78.00 Pure hypercholesterolemia, unspecified; I10 Essential (primary) hypertension; Z88.1 Allergy status to other antibiotic agents; Z79.899 Other long term (current) drug therapy; Z82.3 Family history of stroke; Z82.49 Family history of ischemic heart disease and other diseases of the circulatory system

== ENCOUNTER → 2021-06-10 | Outpatient (CLI) | payer OTHER ==
[~2021-06-10] MED LIST changes: +AMARYL4 MG PO; +CLINDAMYCIN HC300 MG PO; +GABAPENTIN800 MG PO; +INSULIN LI100 UNIT/2 SQ; +TRAZODONE150 MG PO; +TRULICITY0.75 MG/0. SC; +UNASYN 3 GM VIAL3 GM IV; +VITAMIN D250 MCG PO; +VITAMIN D350 MCG PO
== END ==
LOC: WOUNDCARE 06-09 00:41
PROVIDERS: ATTEND Nurse Practitioner
DX: E11.621 Type 2 diabetes mellitus with foot ulcer (principal); L97.512 Non-pressure chronic ulcer of other part of right foot with fat layer exposed; L97.522 Non-pressure chronic ulcer of other part of left foot with fat layer exposed; L84 Corns and callosities; E11.40 Type 2 diabetes mellitus with diabetic neuropathy, unspecified; E11.69 Type 2 diabetes mellitus with other specified complication; M86.8X7 Other osteomyelitis, ankle and foot; I10 Essential (primary) hypertension; E78.5 Hyperlipidemia, unspecified; F12.90 Cannabis use, unspecified, uncomplicated

== ENCOUNTER → 2021-06-17 | Outpatient (CLI) | payer OTHER | LOC: WOUNDCARE 00:28 | PROVIDERS: ATTEND Nurse Practitioner | DX: E11.621 Type 2 diabetes mellitus with foot ulcer (principal); L97.512 Non-pressure chronic ulcer of other part of right foot with fat layer exposed; L97.522 Non-pressure chronic ulcer of other part of left foot with fat layer exposed; L84 Corns and callosities; E11.40 Type 2 diabetes mellitus with diabetic neuropathy, unspecified; E11.69 Type 2 diabetes mellitus with other specified complication; M86.8X7 Other osteomyelitis, ankle and foot; I10 Essential (primary) hypertension; E78.5 Hyperlipidemia, unspecified; F12.90 Cannabis use, unspecified, uncomplicated ==

== ENCOUNTER → 2021-06-24 | Outpatient (CLI) | payer OTHER | LOC: WOUNDCARE 01:11 | PROVIDERS: ATTEND Nurse Practitioner | DX: E11.621 Type 2 diabetes mellitus with foot ulcer (principal); L97.512 Non-pressure chronic ulcer of other part of right foot with fat layer exposed; L97.522 Non-pressure chronic ulcer of other part of left foot with fat layer exposed; L84 Corns and callosities; E11.40 Type 2 diabetes mellitus with diabetic neuropathy, unspecified; E11.69 Type 2 diabetes mellitus with other specified complication; M86.8X7 Other osteomyelitis, ankle and foot; I10 Essential (primary) hypertension; E78.5 Hyperlipidemia, unspecified; F12.90 Cannabis use, unspecified, uncomplicated ==

== ENCOUNTER → 2021-06-26 | Outpatient (CLI) | payer OTHER ==
[2021-06-26 07:13] LABS: BASO # 0.1 10*3/uL (0.0-0.1); BASO % 0.7 % (0.0-1.0); EOS # 0.3 10*3/uL (0.0-0.4); HEMATOCRIT 43.1 % (42.0-52.0); LYMPH # 2.4 10*3/uL (1.3-4.4); LYMPH % 34.3 % (27.0-41.0); MEAN CELL VOLUME 87.1 fl (80.0-94.0); MEAN CORPUSCULAR HGB 27.9 pg (27.0-31.0); MEAN PLATELET VOLUME 9.8 fl (9.6-12.3); MONO # 0.6 10*3/uL (0.1-1.0); MONO % 8.7 % (3.0-9.0); NEUT # 3.6 10*3/uL (2.3-7.9); NEUT % 51.6 % (47.0-73.0); PLATELET COUNT AUTOMATED 295 10*3/uL (130-400); RED BLOOD COUNT 4.95 10*6/uL (4.50-5.90)
[2021-06-26 07:24] LABS: ALKALINE PHOSPHATASE 122 U/L (45-117); BUN 14 mg/dl (7-24); CHLORIDE 101 mmol/L (98-107); CREATININE 1.15 mg/dL (0.70-1.30); POTASSIUM 4.2 mmol/L (3.5-5.1); SGOT/AST 25 IU/L (3-35); SGPT/ALT 42 U/L (12-78); SODIUM 136 mmol/L (136-145); TOTAL PROTEIN 7.4 gm/dL (6.4-8.2)
== END | disposition home or self-care (01) ==
LOC: LAB 06:29
PROVIDERS: ATTEND Nurse Practitioner
DX: E11.621 Type 2 diabetes mellitus with foot ulcer (principal)

== ENCOUNTER → 2021-06-29 | Outpatient (CLI) | payer OTHER | LOC: WOUNDCARE 00:53 | PROVIDERS: ATTEND Nurse Practitioner Primary Care | DX: E11.621 Type 2 diabetes mellitus with foot ulcer (principal); L97.512 Non-pressure chronic ulcer of other part of right foot with fat layer exposed; L97.522 Non-pressure chronic ulcer of other part of left foot with fat layer exposed; L84 Corns and callosities; E11.40 Type 2 diabetes mellitus with diabetic neuropathy, unspecified; E11.69 Type 2 diabetes mellitus with other specified complication; M86.8X7 Other osteomyelitis, ankle and foot; I10 Essential (primary) hypertension; E78.5 Hyperlipidemia, unspecified; F12.90 Cannabis use, unspecified, uncomplicated ==

== ENCOUNTER → 2021-07-08 | Outpatient (CLI) | payer OTHER | LOC: WOUNDCARE 01:11 | PROVIDERS: ATTEND Nurse Practitioner Family | DX: E11.621 Type 2 diabetes mellitus with foot ulcer (principal); L97.512 Non-pressure chronic ulcer of other part of right foot with fat layer exposed; L97.522 Non-pressure chronic ulcer of other part of left foot with fat layer exposed; L84 Corns and callosities; E11.40 Type 2 diabetes mellitus with diabetic neuropathy, unspecified; E11.69 Type 2 diabetes mellitus with other specified complication; M86.8X7 Other osteomyelitis, ankle and foot; I10 Essential (primary) hypertension; E78.5 Hyperlipidemia, unspecified; F12.90 Cannabis use, unspecified, uncomplicated ==

== ENCOUNTER → 2021-07-10 | Outpatient (CLI) | payer OTHER ==
[2021-07-10 06:58] LABS: BASO % 0.6 % (0.0-1.0); EOS # 0.2 10*3/uL (0.0-0.4); EOS % 2.9 % (1.0-4.0); HEMATOCRIT 40.6 % (42.0-52.0); LYMPH # 2.1 10*3/uL (1.3-4.4); LYMPH % 34.1 % (27.0-41.0); MEAN CELL VOLUME 85.7 fl (80.0-94.0); MEAN CORPUSCULAR HGB 28.1 pg (27.0-31.0); MEAN CORPUSCULAR HGB CONC 32.8 g/dl (33.0-37.0); MEAN PLATELET VOLUME 9.4 fl (9.6-12.3); MONO # 0.4 10*3/uL (0.1-1.0); NEUT # 3.4 10*3/uL (2.3-7.9); NEUT % 54.8 % (47.0-73.0); PLATELET COUNT AUTOMATED 289 10*3/uL (130-400); RED BLOOD COUNT 4.74 10*6/uL (4.50-5.90); RED CELL DISTRI WIDTH 12.8 % (0-14.5); WHITE BLOOD COUNT 6.2 10*3/uL (4.8-10.8)
== END | disposition home or self-care (01) ==
LOC: LAB 06:30
PROVIDERS: ATTEND Nurse Practitioner Family
DX: M19.071 Primary osteoarthritis, right ankle and foot (principal); L97.512 Non-pressure chronic ulcer of other part of right foot with fat layer exposed; L97.522 Non-pressure chronic ulcer of other part of left foot with fat layer exposed; M79.89 Other specified soft tissue disorders; Z89.421 Acquired absence of other right toe(s)

== ENCOUNTER → 2021-07-15 | Outpatient (CLI) | payer OTHER | LOC: WOUNDCARE 00:53 | PROVIDERS: ATTEND Nurse Practitioner Family | DX: E11.621 Type 2 diabetes mellitus with foot ulcer (principal); L97.512 Non-pressure chronic ulcer of other part of right foot with fat layer exposed; L97.522 Non-pressure chronic ulcer of other part of left foot with fat layer exposed; L84 Corns and callosities; E11.40 Type 2 diabetes mellitus with diabetic neuropathy, unspecified; E11.69 Type 2 diabetes mellitus with other specified complication; M86.8X7 Other osteomyelitis, ankle and foot; I10 Essential (primary) hypertension; E78.5 Hyperlipidemia, unspecified; F12.90 Cannabis use, unspecified, uncomplicated ==

== ENCOUNTER → 2021-07-22 | Outpatient (CLI) | payer OTHER | LOC: WOUNDCARE 01:52 | PROVIDERS: ATTEND Nurse Practitioner Family | DX: E11.621 Type 2 diabetes mellitus with foot ulcer (principal); L97.512 Non-pressure chronic ulcer of other part of right foot with fat layer exposed; L97.522 Non-pressure chronic ulcer of other part of left foot with fat layer exposed; L84 Corns and callosities; E11.40 Type 2 diabetes mellitus with diabetic neuropathy, unspecified; E11.69 Type 2 diabetes mellitus with other specified complication; M86.8X7 Other osteomyelitis, ankle and foot; I10 Essential (primary) hypertension; E78.5 Hyperlipidemia, unspecified; F12.90 Cannabis use, unspecified, uncomplicated ==

== ENCOUNTER → 2021-07-29 | Outpatient (CLI) | payer OTHER | LOC: WOUNDCARE 01:03 | PROVIDERS: ATTEND Nurse Practitioner Family | DX: E11.621 Type 2 diabetes mellitus with foot ulcer (principal); L97.512 Non-pressure chronic ulcer of other part of right foot with fat layer exposed; L97.522 Non-pressure chronic ulcer of other part of left foot with fat layer exposed; L84 Corns and callosities; E11.40 Type 2 diabetes mellitus with diabetic neuropathy, unspecified; E11.69 Type 2 diabetes mellitus with other specified complication; M86.8X7 Other osteomyelitis, ankle and foot; I10 Essential (primary) hypertension; E78.5 Hyperlipidemia, unspecified; F12.90 Cannabis use, unspecified, uncomplicated ==

== ENCOUNTER → 2021-08-05 | Outpatient (CLI) | payer OTHER | LOC: WOUNDCARE 00:51 | PROVIDERS: ATTEND Nurse Practitioner Family | DX: E11.621 Type 2 diabetes mellitus with foot ulcer (principal); L97.512 Non-pressure chronic ulcer of other part of right foot with fat layer exposed; L97.522 Non-pressure chronic ulcer of other part of left foot with fat layer exposed; L84 Corns and callosities; E11.40 Type 2 diabetes mellitus with diabetic neuropathy, unspecified; E11.69 Type 2 diabetes mellitus with other specified complication; M86.8X7 Other osteomyelitis, ankle and foot; I10 Essential (primary) hypertension; E78.5 Hyperlipidemia, unspecified; F12.90 Cannabis use, unspecified, uncomplicated ==

== ENCOUNTER → 2021-08-26 | Outpatient (CLI) | payer OTHER | LOC: WOUNDCARE 01:02 | PROVIDERS: ATTEND Nurse Practitioner Family | DX: E11.621 Type 2 diabetes mellitus with foot ulcer (principal); L97.522 Non-pressure chronic ulcer of other part of left foot with fat layer exposed; L97.512 Non-pressure chronic ulcer of other part of right foot with fat layer exposed; L84 Corns and callosities; E11.40 Type 2 diabetes mellitus with diabetic neuropathy, unspecified; E11.69 Type 2 diabetes mellitus with other specified complication; M86.8X7 Other osteomyelitis, ankle and foot; I10 Essential (primary) hypertension; E78.5 Hyperlipidemia, unspecified; F12.90 Cannabis use, unspecified, uncomplicated ==

== ENCOUNTER → 2021-09-02 | Outpatient (CLI) | payer OTHER | LOC: WOUNDCARE 00:14 | PROVIDERS: ATTEND Nurse Practitioner Family | DX: T86.828 Other complications of skin graft (allograft) (autograft) (principal); E11.621 Type 2 diabetes mellitus with foot ulcer; L97.522 Non-pressure chronic ulcer of other part of left foot with fat layer exposed; L97.512 Non-pressure chronic ulcer of other part of right foot with fat layer exposed; L84 Corns and callosities; E11.40 Type 2 diabetes mellitus with diabetic neuropathy, unspecified; E11.69 Type 2 diabetes mellitus with other specified complication; M86.8X7 Other osteomyelitis, ankle and foot; I10 Essential (primary) hypertension; E78.5 Hyperlipidemia, unspecified; F12.90 Cannabis use, unspecified, uncomplicated; Y83.2 Surgical operation with anastomosis, bypass or graft as the cause of abnormal reaction of the patient, or of later complication, without mention of misadventure at the time of the procedure; Y92.238 Other place in hospital as the place of occurrence of the external cause ==

== ENCOUNTER → 2021-09-21 | Outpatient (CLI) | payer OTHER | LOC: WOUNDCARE 10:53 | PROVIDERS: ATTEND Nurse Practitioner Family | DX: E11.621 Type 2 diabetes mellitus with foot ulcer (principal); L97.522 Non-pressure chronic ulcer of other part of left foot with fat layer exposed; L97.512 Non-pressure chronic ulcer of other part of right foot with fat layer exposed; L84 Corns and callosities; E11.40 Type 2 diabetes mellitus with diabetic neuropathy, unspecified; E11.69 Type 2 diabetes mellitus with other specified complication; M86.8X7 Other osteomyelitis, ankle and foot; I10 Essential (primary) hypertension; E78.5 Hyperlipidemia, unspecified; F12.90 Cannabis use, unspecified, uncomplicated ==

== ENCOUNTER 2021-11-02 08:54 | Emergency (ER) | payer OTHER ==
[~2021-11-02] VITALS: Ht 167.6 cm; Wt 95.3 kg
[~2021-11-02 08:54] MED LIST changes: +GLIMEPIRIDE4 M1 PO; +IBU800 M1 PO; +METOPROLOL SUCC50 M1 PO; +TRAD5TAB1 PO; +ZESTORETIC 20-1 EACH PO
[2021-11-02 11:16] LABS: BASO % 0.4 % (0.0-1.0); EOS # 0.3 10*3/uL (0.0-0.4); EOS % 3.4 % (1.0-4.0); HEMATOCRIT 35.7 % (42.0-52.0); LYMPH # 1.6 10*3/uL (1.3-4.4); MEAN CELL VOLUME 84.2 fl (80.0-94.0); MEAN CORPUSCULAR HGB 28.1 pg (27.0-31.0); MEAN CORPUSCULAR HGB CONC 33.3 g/dl (33.0-37.0); MEAN PLATELET VOLUME 9.8 fl (9.6-12.3); MONO # 0.5 10*3/uL (0.1-1.0); NEUT # 4.9 10*3/uL (2.3-7.9); NEUT % 66.7 % (47.0-73.0); PLATELET COUNT AUTOMATED 223 10*3/uL (130-400); RED BLOOD COUNT 4.24 10*6/uL (4.50-5.90); RED CELL DISTRI WIDTH 13.7 % (0-14.5); WHITE BLOOD COUNT 7.3 10*3/uL (4.8-10.8)
[2021-11-02 11:31] LABS: ACT PARTIAL THROMBO TIME 22.7 SECONDS (20.0-32.1); INTERNATIONAL NORM RATIO 0.9 (2.0-3.5)
[2021-11-02 11:33] LABS: ALBUMIN 3.1 gm/dl (3.1-4.5); ALKALINE PHOSPHATASE 95 U/L (45-117); BUN 17 mg/dl (7-24); CHLORIDE 105 mmol/L (98-107); CREATININE 1.31 mg/dL (0.70-1.30); LIPASE 167 U/L (73-393); POTASSIUM 4.5 mmol/L (3.5-5.1); SGOT/AST 37 IU/L (3-35); SGPT/ALT 51 U/L (12-78); SODIUM 138 mmol/L (136-145); TOTAL PROTEIN 7.5 gm/dL (6.4-8.2)
== END 2021-11-02 14:52 | disposition left against medical advice (07) ==
LOC: ED 08:54
PROVIDERS: Emergency Medicine
DX: T82.868A Thrombosis due to vascular prosthetic devices, implants and grafts, initial encounter (principal); Z88.8 Allergy status to other drugs, medicaments and biological substances; Z79.899 Other long term (current) drug therapy; Z90.49 Acquired absence of other specified parts of digestive tract; Z98.890 Other specified postprocedural states; Y92.89 Other specified places as the place of occurrence of the external cause

== ENCOUNTER → 2021-11-19 | Outpatient (CLI) | payer OTHER | LOC: WOUNDCARE 02:17 | PROVIDERS: ATTEND Nurse Practitioner Family | DX: E11.621 Type 2 diabetes mellitus with foot ulcer (principal); L97.522 Non-pressure chronic ulcer of other part of left foot with fat layer exposed; L97.512 Non-pressure chronic ulcer of other part of right foot with fat layer exposed; L84 Corns and callosities; E11.40 Type 2 diabetes mellitus with diabetic neuropathy, unspecified; E11.69 Type 2 diabetes mellitus with other specified complication; M86.8X7 Other osteomyelitis, ankle and foot; I10 Essential (primary) hypertension; E78.5 Hyperlipidemia, unspecified; F12.90 Cannabis use, unspecified, uncomplicated ==

== ENCOUNTER → 2021-11-25 | Outpatient (CLI) | payer OTHER | LOC: WOUNDCARE 09:08 | PROVIDERS: ATTEND Nurse Practitioner Family | DX: E11.621 Type 2 diabetes mellitus with foot ulcer (principal); L97.522 Non-pressure chronic ulcer of other part of left foot with fat layer exposed; L97.512 Non-pressure chronic ulcer of other part of right foot with fat layer exposed; L84 Corns and callosities; E11.40 Type 2 diabetes mellitus with diabetic neuropathy, unspecified; E11.69 Type 2 diabetes mellitus with other specified complication; M86.8X7 Other osteomyelitis, ankle and foot; I10 Essential (primary) hypertension; E78.5 Hyperlipidemia, unspecified; F12.90 Cannabis use, unspecified, uncomplicated ==

== ENCOUNTER → 2021-12-02 | Outpatient (CLI) | payer OTHER | LOC: WOUNDCARE 00:33 | PROVIDERS: ATTEND Nurse Practitioner Family | DX: E11.621 Type 2 diabetes mellitus with foot ulcer (principal); L97.522 Non-pressure chronic ulcer of other part of left foot with fat layer exposed; L97.512 Non-pressure chronic ulcer of other part of right foot with fat layer exposed; L84 Corns and callosities; E11.40 Type 2 diabetes mellitus with diabetic neuropathy, unspecified; E11.69 Type 2 diabetes mellitus with other specified complication; M86.8X7 Other osteomyelitis, ankle and foot; I10 Essential (primary) hypertension; E78.5 Hyperlipidemia, unspecified; F12.90 Cannabis use, unspecified, uncomplicated ==

== ENCOUNTER → 2021-12-09 | Outpatient (CLI) | payer OTHER | LOC: WOUNDCARE 01:57 | PROVIDERS: ATTEND Nurse Practitioner Family | DX: E11.621 Type 2 diabetes mellitus with foot ulcer (principal); L97.522 Non-pressure chronic ulcer of other part of left foot with fat layer exposed; L97.512 Non-pressure chronic ulcer of other part of right foot with fat layer exposed; L84 Corns and callosities; E11.40 Type 2 diabetes mellitus with diabetic neuropathy, unspecified; E11.69 Type 2 diabetes mellitus with other specified complication; M86.8X7 Other osteomyelitis, ankle and foot; I10 Essential (primary) hypertension; E78.5 Hyperlipidemia, unspecified; F12.90 Cannabis use, unspecified, uncomplicated ==

== ENCOUNTER → 2021-12-15 | Outpatient (CLI) | payer OTHER | LOC: WOUNDCARE 01:31 | PROVIDERS: ATTEND Surgery | DX: E11.621 Type 2 diabetes mellitus with foot ulcer (principal); L97.522 Non-pressure chronic ulcer of other part of left foot with fat layer exposed; L97.512 Non-pressure chronic ulcer of other part of right foot with fat layer exposed; L84 Corns and callosities; E11.40 Type 2 diabetes mellitus with diabetic neuropathy, unspecified; E11.69 Type 2 diabetes mellitus with other specified complication; M86.9 Osteomyelitis, unspecified; E78.5 Hyperlipidemia, unspecified; I10 Essential (primary) hypertension ==

== ENCOUNTER 2021-12-21 09:12 | Inpatient (IN) | payer OTHER ==
[~2021-12-21] VITALS: Ht 170.2 cm; Wt 90.3 kg
[2021-12-21 11:15] VITALS: BP 145/99
[2021-12-21 12:00] VITALS: BP 118/68
[2021-12-21] MEDS ORDERED: FLUOXETINE HCL20 M2 PO (13:10)
[2021-12-21 16:00] VITALS: BP 124/74
[2021-12-21 20:00] VITALS: BP 168/82; BP 168/86; BP 173/97
[2021-12-21] MEDS ORDERED: TRAZODONE150 MG PO (21:18)
[2021-12-21] MEDS ORDERED: HYDR25T PO (21:19)
[2021-12-21] MEDS ORDERED: LANTUS SOL100 UNIT/1 SC (21:22)
[2021-12-22] VITALS (9 sets, daily range): BP systolic 137–159; BP diastolic 69–98
[2021-12-22 06:11] LABS: BASO # 0.1 10*3/uL (0.0-0.1); BASO % 0.5 % (0.0-1.0); EOS # 0.2 10*3/uL (0.0-0.4); EOS % 1.4 % (1.0-4.0); HEMATOCRIT 33.9 % (42.0-52.0); LYMPH # 1.2 10*3/uL (1.3-4.4); LYMPH % 11.7 % (27.0-41.0); MEAN CELL VOLUME 86.9 fl (80.0-94.0); MEAN CORPUSCULAR HGB CONC 33.3 g/dl (33.0-37.0); MEAN PLATELET VOLUME 10.3 fl (9.6-12.3); MONO # 0.8 10*3/uL (0.1-1.0); MONO % 7.6 % (3.0-9.0); NEUT # 8.2 10*3/uL (2.3-7.9); NEUT % 77.2 % (47.0-73.0); PLATELET COUNT AUTOMATED 276 10*3/uL (130-400); RED CELL DISTRI WIDTH 13.1 % (0-14.5); WHITE BLOOD COUNT 10.6 10*3/uL (4.8-10.8)
[2021-12-22 06:20] LABS: CREATININE 1.62 mg/dL (0.70-1.30); POTASSIUM 3.8 mmol/L (3.5-5.1)
[2021-12-23] VITALS: BP 129/69
[2021-12-23 06:30] LABS: BUN 13 mg/dl (7-24); CHLORIDE 108 mmol/L (98-107); CREATININE 1.15 mg/dL (0.70-1.30); POTASSIUM 3.2 mmol/L (3.5-5.1); SODIUM 138 mmol/L (136-145)
[2021-12-23 06:33] LABS: BASO % 0.6 % (0.0-1.0); EOS # 0.2 10*3/uL (0.0-0.4); HEMATOCRIT 28.5 % (42.0-52.0); LYMPH # 1.4 10*3/uL (1.3-4.4); LYMPH % 19.3 % (27.0-41.0); MEAN CELL VOLUME 88.5 fl (80.0-94.0); MEAN CORPUSCULAR HGB 29.2 pg (27.0-31.0); MEAN PLATELET VOLUME 10.1 fl (9.6-12.3); MONO # 0.6 10*3/uL (0.1-1.0); MONO % 7.7 % (3.0-9.0); NEUT % 68.6 % (47.0-73.0); PLATELET COUNT AUTOMATED 231 10*3/uL (130-400); RED BLOOD COUNT 3.22 10*6/uL (4.50-5.90); RED CELL DISTRI WIDTH 13.1 % (0-14.5); WHITE BLOOD COUNT 7.2 10*3/uL (4.8-10.8)
[2021-12-23 08:00] VITALS: BP 132/79
[2021-12-23 11:07] LABS: ACID FAST SPEC PROCESSING Tissue Grinding (.)
[2021-12-23 11:07] LABS: ACID FAST SPEC PROCESSING Tissue Grinding (.)
[2021-12-23 12:00] VITALS: BP 135/87
[2021-12-23 16:00] VITALS: BP 153/83
[2021-12-23 20:00] VITALS: BP 152/89
[2021-12-24] VITALS: BP 165/83
[2021-12-24 06:06] LABS: CHLORIDE 107 mmol/L (98-107); POTASSIUM 3.9 mmol/L (3.5-5.1); SODIUM 138 mmol/L (136-145)
[2021-12-24 06:10] LABS: BUN 11 mg/dl (7-24)
[2021-12-24 06:36] LABS: BASO % 0.6 % (0.0-1.0); EOS # 0.3 10*3/uL (0.0-0.4); HEMATOCRIT 29.6 % (42.0-52.0); LYMPH # 1.6 10*3/uL (1.3-4.4); MEAN CELL VOLUME 88.6 fl (80.0-94.0); MEAN CORPUSCULAR HGB 28.7 pg (27.0-31.0); MEAN CORPUSCULAR HGB CONC 32.4 g/dl (33.0-37.0); MEAN PLATELET VOLUME 10.3 fl (9.6-12.3); MONO # 0.5 10*3/uL (0.1-1.0); MONO % 8.7 % (3.0-9.0); NEUT # 3.8 10*3/uL (2.3-7.9); NEUT % 61.1 % (47.0-73.0); PLATELET COUNT AUTOMATED 258 10*3/uL (130-400); RED BLOOD COUNT 3.34 10*6/uL (4.50-5.90); RED CELL DISTRI WIDTH 12.9 % (0-14.5); WHITE BLOOD COUNT 6.2 10*3/uL (4.8-10.8)
[2021-12-24 08:00] VITALS: BP 165/99
[2021-12-24 12:00] VITALS: BP 143/79
[2021-12-24 16:00] VITALS: BP 166/95
[2021-12-24 20:00] VITALS: BP 184/91
[2021-12-25] VITALS: BP 122/60
[2021-12-25 08:00] VITALS: BP 135/81
[2021-12-25 12:00] VITALS: BP 153/98
== END 2021-12-25 14:28 | disposition home or self-care (01) | DRG 344 ==
LOC: WOUNDCARE 09:12 → 5E 10:37
PROVIDERS: Surgery; ADMIT Internal Medicine; ATTEND Internal Medicine
PROC: 02HV33Z Insertion of Infusion Device into Superior Vena Cava, Percutaneous Approach (ICD-10-PCS; 2021-12-21)
PROC: 0QBN0ZX Excision of Right Metatarsal, Open Approach, Diagnostic (ICD-10-PCS; principal; 2021-12-22)
PROC: 2W1SX6Z Compression of Right Foot using Pressure Dressing (ICD-10-PCS; 2021-12-22)
DX: E11.69 Type 2 diabetes mellitus with other specified complication (principal); L97.519 Non-pressure chronic ulcer of other part of right foot with unspecified severity; E11.621 Type 2 diabetes mellitus with foot ulcer; K31.84 Gastroparesis; E11.22 Type 2 diabetes mellitus with diabetic chronic kidney disease; N18.9 Chronic kidney disease, unspecified; I12.9 Hypertensive chronic kidney disease with stage 1 through stage 4 chronic kidney disease, or unspecified chronic kidney disease; E87.1 Hypo-osmolality and hyponatremia; E87.8 Other disorders of electrolyte and fluid balance, not elsewhere classified; K21.00 Gastro-esophageal reflux disease with esophagitis, without bleeding; E11.42 Type 2 diabetes mellitus with diabetic polyneuropathy; L02.611 Cutaneous abscess of right foot; L03.115 Cellulitis of right lower limb; E78.2 Mixed hyperlipidemia; M86.171 Other acute osteomyelitis, right ankle and foot; F51.01 Primary insomnia; F33.0 Major depressive disorder, recurrent, mild; F51.04 Psychophysiologic insomnia; M54.50 Low back pain, unspecified; E11.43 Type 2 diabetes mellitus with diabetic autonomic (poly)neuropathy; Z88.8 Allergy status to other drugs, medicaments and biological substances; E78.00 Pure hypercholesterolemia, unspecified; Z79.899 Other long term (current) drug therapy; Z82.49 Family history of ischemic heart disease and other diseases of the circulatory system; Z82.3 Family history of stroke; Z90.49 Acquired absence of other specified parts of digestive tract; Z68.31 Body mass index [BMI] 31.0-31.9, adult; N18.30 Chronic kidney disease, stage 3 unspecified

== ENCOUNTER → 2021-12-30 | Outpatient (CLI) | payer OTHER ==
[~2021-12-30] MED LIST changes: +FLUOXETINE HCL20 M2 PO; +HYDR25T PO; +IBU800 M2 PO; +LANTUS SOL100 UNIT/1 SC
== END | disposition home or self-care (01) ==
LOC: WOUNDCARE 12-29 00:53
PROVIDERS: ATTEND Surgery
DX: T81.89XA Other complications of procedures, not elsewhere classified, initial encounter (principal); E11.621 Type 2 diabetes mellitus with foot ulcer; L97.522 Non-pressure chronic ulcer of other part of left foot with fat layer exposed; L97.512 Non-pressure chronic ulcer of other part of right foot with fat layer exposed; L84 Corns and callosities; E11.69 Type 2 diabetes mellitus with other specified complication; M86.68 Other chronic osteomyelitis, other site; E11.40 Type 2 diabetes mellitus with diabetic neuropathy, unspecified; E78.5 Hyperlipidemia, unspecified; I10 Essential (primary) hypertension; Y92.238 Other place in hospital as the place of occurrence of the external cause; Y83.8 Other surgical procedures as the cause of abnormal reaction of the patient, or of later complication, without mention of misadventure at the time of the procedure

== ENCOUNTER 2022-01-01 09:46 | Emergency (ER) | payer OTHER ==
[~2022-01-01] VITALS: Ht 167.6 cm; Wt 90.7 kg
[~2022-01-01 09:46] MED LIST changes: -IBU800 M2 PO
[2022-01-01 10:36] LABS: BASO # 0.1 10*3/uL (0.0-0.1); BASO % 0.7 % (0.0-1.0); EOS # 0.2 10*3/uL (0.0-0.4); HEMATOCRIT 36.2 % (42.0-52.0); LYMPH # 1.8 10*3/uL (1.3-4.4); LYMPH % 25.2 % (27.0-41.0); MEAN CELL VOLUME 87.2 fl (80.0-94.0); MEAN CORPUSCULAR HGB 28.2 pg (27.0-31.0); MEAN CORPUSCULAR HGB CONC 32.3 g/dl (33.0-37.0); MEAN PLATELET VOLUME 9.6 fl (9.6-12.3); MONO # 0.5 10*3/uL (0.1-1.0); MONO % 7.2 % (3.0-9.0); NEUT # 4.4 10*3/uL (2.3-7.9); NEUT % 62.1 % (47.0-73.0); PLATELET COUNT AUTOMATED 297 10*3/uL (130-400); RED BLOOD COUNT 4.15 10*6/uL (4.50-5.90); RED CELL DISTRI WIDTH 12.8 % (0-14.5); WHITE BLOOD COUNT 7.1 10*3/uL (4.8-10.8)
[2022-01-01 11:16] LABS: ALKALINE PHOSPHATASE 129 U/L (45-117); BUN 22 mg/dl (7-24); CHLORIDE 105 mmol/L (98-107); CREATININE 1.23 mg/dL (0.70-1.30); POTASSIUM 4.4 mmol/L (3.5-5.1); SGOT/AST 38 IU/L (3-35); SGPT/ALT 45 U/L (12-78); SODIUM 133 mmol/L (136-145); TOTAL PROTEIN 7.3 gm/dL (6.4-8.2)
[2022-01-01] MEDS ORDERED: IBU800 M2 PO (14:02)
== END 2022-01-01 15:23 | disposition home or self-care (01) ==
LOC: ED 09:46
PROVIDERS: Internal Medicine
DX: R09.1 Pleurisy (principal); Z98.890 Other specified postprocedural states; Z79.899 Other long term (current) drug therapy; Z88.8 Allergy status to other drugs, medicaments and biological substances

== ENCOUNTER → 2022-01-12 | Outpatient (CLI) | payer OTHER ==
[~2022-01-12] MED LIST changes: +IBU800 M2 PO
== END | disposition home or self-care (01) ==
LOC: WOUNDCARE 02:00
PROVIDERS: ATTEND Surgery
DX: T81.89XD Other complications of procedures, not elsewhere classified, subsequent encounter (principal); E11.621 Type 2 diabetes mellitus with foot ulcer; L97.513 Non-pressure chronic ulcer of other part of right foot with necrosis of muscle; L97.522 Non-pressure chronic ulcer of other part of left foot with fat layer exposed; L84 Corns and callosities; E11.69 Type 2 diabetes mellitus with other specified complication; M86.68 Other chronic osteomyelitis, other site; E11.40 Type 2 diabetes mellitus with diabetic neuropathy, unspecified; E78.5 Hyperlipidemia, unspecified; I10 Essential (primary) hypertension; F12.90 Cannabis use, unspecified, uncomplicated; Y83.8 Other surgical procedures as the cause of abnormal reaction of the patient, or of later complication, without mention of misadventure at the time of the procedure

== ENCOUNTER → 2022-01-26 | Outpatient (CLI) | payer OTHER | END | disposition home or self-care (01) | LOC: WOUNDCARE 00:21 | PROVIDERS: ATTEND Surgery | DX: E11.621 Type 2 diabetes mellitus with foot ulcer (principal); L97.522 Non-pressure chronic ulcer of other part of left foot with fat layer exposed; L97.512 Non-pressure chronic ulcer of other part of right foot with fat layer exposed; E11.69 Type 2 diabetes mellitus with other specified complication; M86.68 Other chronic osteomyelitis, other site; E11.40 Type 2 diabetes mellitus with diabetic neuropathy, unspecified; I10 Essential (primary) hypertension; E78.5 Hyperlipidemia, unspecified; F12.90 Cannabis use, unspecified, uncomplicated ==

== ENCOUNTER → 2022-02-09 | Outpatient (CLI) | payer OTHER | END | disposition home or self-care (01) | LOC: WOUNDCARE 01:41 | PROVIDERS: ATTEND Surgery | DX: E11.621 Type 2 diabetes mellitus with foot ulcer (principal); L97.522 Non-pressure chronic ulcer of other part of left foot with fat layer exposed; L97.513 Non-pressure chronic ulcer of other part of right foot with necrosis of muscle; L84 Corns and callosities; E11.69 Type 2 diabetes mellitus with other specified complication; M86.68 Other chronic osteomyelitis, other site; E11.40 Type 2 diabetes mellitus with diabetic neuropathy, unspecified; E78.5 Hyperlipidemia, unspecified; I10 Essential (primary) hypertension; F12.90 Cannabis use, unspecified, uncomplicated ==

== ENCOUNTER → 2022-02-23 | Outpatient (CLI) | payer OTHER | END | disposition home or self-care (01) | LOC: WOUNDCARE 02-22 05:05 | PROVIDERS: ATTEND Surgery | DX: E11.621 Type 2 diabetes mellitus with foot ulcer (principal); L97.515 Non-pressure chronic ulcer of other part of right foot with muscle involvement without evidence of necrosis; L97.526 Non-pressure chronic ulcer of other part of left foot with bone involvement without evidence of necrosis; L84 Corns and callosities; E11.40 Type 2 diabetes mellitus with diabetic neuropathy, unspecified; E11.69 Type 2 diabetes mellitus with other specified complication; M86.68 Other chronic osteomyelitis, other site; E78.5 Hyperlipidemia, unspecified; I10 Essential (primary) hypertension; F12.90 Cannabis use, unspecified, uncomplicated ==

== ENCOUNTER → 2022-03-09 | Outpatient (CLI) | payer OTHER ==
[~2022-03-09] MED LIST changes: +CEFTRIAXONE2 GM IJ; +GLIMEPIRIDE2 MG PO; +Lantus SC; +METRONIDAZOLE500 M1 PO
== END ==
LOC: WOUNDCARE 01:38
PROVIDERS: ATTEND Surgery
DX: T81.89XA Other complications of procedures, not elsewhere classified, initial encounter (principal); E11.621 Type 2 diabetes mellitus with foot ulcer; L97.521 Non-pressure chronic ulcer of other part of left foot limited to breakdown of skin; L97.513 Non-pressure chronic ulcer of other part of right foot with necrosis of muscle; L84 Corns and callosities; E11.69 Type 2 diabetes mellitus with other specified complication; M86.68 Other chronic osteomyelitis, other site; E11.40 Type 2 diabetes mellitus with diabetic neuropathy, unspecified; E78.5 Hyperlipidemia, unspecified; I10 Essential (primary) hypertension; F12.90 Cannabis use, unspecified, uncomplicated; Y83.8 Other surgical procedures as the cause of abnormal reaction of the patient, or of later complication, without mention of misadventure at the time of the procedure; Y92.238 Other place in hospital as the place of occurrence of the external cause

== ENCOUNTER → 2022-03-16 | Outpatient (CLI) | payer OTHER | LOC: WOUNDCARE 03:45 | PROVIDERS: ATTEND Surgery | DX: T81.89XD Other complications of procedures, not elsewhere classified, subsequent encounter (principal); E11.621 Type 2 diabetes mellitus with foot ulcer; L97.526 Non-pressure chronic ulcer of other part of left foot with bone involvement without evidence of necrosis; L97.512 Non-pressure chronic ulcer of other part of right foot with fat layer exposed; E11.69 Type 2 diabetes mellitus with other specified complication; M86.68 Other chronic osteomyelitis, other site; E11.40 Type 2 diabetes mellitus with diabetic neuropathy, unspecified; E78.5 Hyperlipidemia, unspecified; I10 Essential (primary) hypertension; F12.90 Cannabis use, unspecified, uncomplicated; Y83.8 Other surgical procedures as the cause of abnormal reaction of the patient, or of later complication, without mention of misadventure at the time of the procedure ==

== ENCOUNTER → 2022-03-30 | Outpatient (CLI) | payer OTHER | END | disposition home or self-care (01) | LOC: WOUNDCARE | PROVIDERS: ATTEND Surgery | DX: T81.89XD Other complications of procedures, not elsewhere classified, subsequent encounter (principal); E11.621 Type 2 diabetes mellitus with foot ulcer; L97.522 Non-pressure chronic ulcer of other part of left foot with fat layer exposed; L97.512 Non-pressure chronic ulcer of other part of right foot with fat layer exposed; L84 Corns and callosities; E11.69 Type 2 diabetes mellitus with other specified complication; M86.68 Other chronic osteomyelitis, other site; E11.40 Type 2 diabetes mellitus with diabetic neuropathy, unspecified; E78.5 Hyperlipidemia, unspecified; I10 Essential (primary) hypertension; F12.90 Cannabis use, unspecified, uncomplicated; Y83.8 Other surgical procedures as the cause of abnormal reaction of the patient, or of later complication, without mention of misadventure at the time of the procedure ==

== ENCOUNTER → 2022-04-13 | Outpatient (CLI) | payer OTHER | END | disposition home or self-care (01) | LOC: WOUNDCARE 01:17 | PROVIDERS: ATTEND Surgery | DX: T81.89XD Other complications of procedures, not elsewhere classified, subsequent encounter (principal); E11.621 Type 2 diabetes mellitus with foot ulcer; L97.522 Non-pressure chronic ulcer of other part of left foot with fat layer exposed; L97.512 Non-pressure chronic ulcer of other part of right foot with fat layer exposed; L84 Corns and callosities; E11.69 Type 2 diabetes mellitus with other specified complication; M86.68 Other chronic osteomyelitis, other site; E11.40 Type 2 diabetes mellitus with diabetic neuropathy, unspecified; E78.5 Hyperlipidemia, unspecified; I10 Essential (primary) hypertension; F12.90 Cannabis use, unspecified, uncomplicated; Y83.8 Other surgical procedures as the cause of abnormal reaction of the patient, or of later complication, without mention of misadventure at the time of the procedure ==

== ENCOUNTER → 2022-04-20 | Outpatient (CLI) | payer OTHER | END | disposition home or self-care (01) | LOC: WOUNDCARE 02:09 | PROVIDERS: ATTEND Surgery | DX: T81.89XD Other complications of procedures, not elsewhere classified, subsequent encounter (principal); E11.621 Type 2 diabetes mellitus with foot ulcer; L97.522 Non-pressure chronic ulcer of other part of left foot with fat layer exposed; L97.512 Non-pressure chronic ulcer of other part of right foot with fat layer exposed; E11.69 Type 2 diabetes mellitus with other specified complication; M86.68 Other chronic osteomyelitis, other site; E11.40 Type 2 diabetes mellitus with diabetic neuropathy, unspecified; M86.9 Osteomyelitis, unspecified; E78.5 Hyperlipidemia, unspecified; I10 Essential (primary) hypertension; Y83.8 Other surgical procedures as the cause of abnormal reaction of the patient, or of later complication, without mention of misadventure at the time of the procedure ==

== ENCOUNTER → 2022-05-18 | Outpatient (CLI) | payer OTHER | END | disposition home or self-care (01) | LOC: WOUNDCARE 01:05 | PROVIDERS: ATTEND Surgery | DX: T81.89XD Other complications of procedures, not elsewhere classified, subsequent encounter (principal); E11.621 Type 2 diabetes mellitus with foot ulcer; L97.522 Non-pressure chronic ulcer of other part of left foot with fat layer exposed; L97.512 Non-pressure chronic ulcer of other part of right foot with fat layer exposed; E11.69 Type 2 diabetes mellitus with other specified complication; M86.68 Other chronic osteomyelitis, other site; E11.40 Type 2 diabetes mellitus with diabetic neuropathy, unspecified; I10 Essential (primary) hypertension; E78.5 Hyperlipidemia, unspecified; Y83.8 Other surgical procedures as the cause of abnormal reaction of the patient, or of later complication, without mention of misadventure at the time of the procedure ==

== ENCOUNTER → 2022-06-01 | Outpatient (CLI) | payer OTHER | END | disposition home or self-care (01) | LOC: WOUNDCARE 00:40 | PROVIDERS: ATTEND Nurse Practitioner Family | DX: E11.621 Type 2 diabetes mellitus with foot ulcer (principal); L97.522 Non-pressure chronic ulcer of other part of left foot with fat layer exposed; E11.69 Type 2 diabetes mellitus with other specified complication; M86.68 Other chronic osteomyelitis, other site; E11.40 Type 2 diabetes mellitus with diabetic neuropathy, unspecified; E78.5 Hyperlipidemia, unspecified; I10 Essential (primary) hypertension; F12.90 Cannabis use, unspecified, uncomplicated ==

== ENCOUNTER → 2022-06-04 | Day surgery (SDC) | payer OTHER ==
[~2022-06-04] VITALS: Ht 170.1 cm; Wt 90.7 kg
[~2022-06-04] MED LIST changes: +COLACE100 MG PO; +ONDANSETRON HYDR4 M1 PO; +PERCOCET 5-3251 EACH PO
[2022-06-04 07:20] VITALS: BP 123/80
[2022-06-04 09:09] VITALS: BP 121/77
[2022-06-04 09:22] VITALS: BP 116/86
[2022-06-04 09:40] VITALS: BP 121/68
== END | disposition home or self-care (01) ==
LOC: SDC 06-01 14:00
PROVIDERS: ATTEND Surgery
DX: M86.172 Other acute osteomyelitis, left ankle and foot (principal); F41.9 Anxiety disorder, unspecified; I12.9 Hypertensive chronic kidney disease with stage 1 through stage 4 chronic kidney disease, or unspecified chronic kidney disease; E11.22 Type 2 diabetes mellitus with diabetic chronic kidney disease; N18.9 Chronic kidney disease, unspecified; E11.40 Type 2 diabetes mellitus with diabetic neuropathy, unspecified; M19.90 Unspecified osteoarthritis, unspecified site; F32.9 Major depressive disorder, single episode, unspecified; Z98.890 Other specified postprocedural states

== ENCOUNTER → 2022-06-22 | Outpatient (CLI) | payer OTHER | END | disposition home or self-care (01) | LOC: WOUNDCARE 02:15 | PROVIDERS: ATTEND Nurse Practitioner Family | DX: T87.89 Other complications of amputation stump (principal); E11.621 Type 2 diabetes mellitus with foot ulcer; L97.522 Non-pressure chronic ulcer of other part of left foot with fat layer exposed; L84 Corns and callosities; E11.69 Type 2 diabetes mellitus with other specified complication; M86.68 Other chronic osteomyelitis, other site; E11.40 Type 2 diabetes mellitus with diabetic neuropathy, unspecified; E78.5 Hyperlipidemia, unspecified; I10 Essential (primary) hypertension; F12.90 Cannabis use, unspecified, uncomplicated; Y83.5 Amputation of limb(s) as the cause of abnormal reaction of the patient, or of later complication, without mention of misadventure at the time of the procedure ==

== ENCOUNTER → 2022-07-06 | Outpatient (CLI) | payer OTHER | END | disposition home or self-care (01) | LOC: WOUNDCARE 02:33 | PROVIDERS: ATTEND Nurse Practitioner Family | DX: T87.89 Other complications of amputation stump (principal); E11.621 Type 2 diabetes mellitus with foot ulcer; L97.522 Non-pressure chronic ulcer of other part of left foot with fat layer exposed; E11.69 Type 2 diabetes mellitus with other specified complication; M86.68 Other chronic osteomyelitis, other site; E11.40 Type 2 diabetes mellitus with diabetic neuropathy, unspecified; E78.5 Hyperlipidemia, unspecified; I10 Essential (primary) hypertension; F12.90 Cannabis use, unspecified, uncomplicated; Y83.5 Amputation of limb(s) as the cause of abnormal reaction of the patient, or of later complication, without mention of misadventure at the time of the procedure ==

== ENCOUNTER 2022-08-27 14:25 | Inpatient (IN) | payer OTHER ==
[~2022-08-27] VITALS: Ht 167.6 cm; Wt 99.6 kg
[~2022-08-27 14:25] MED LIST changes: -VITAMIN D350 MC2 PO
[2022-08-27 15:01] VITALS: BP 111/73
[2022-08-27 16:11] LABS: BASO # 0.1 10*3/uL (0.0-0.1); BASO % 0.6 % (0.0-1.0); EOS # 0.1 10*3/uL (0.0-0.4); EOS % 1.2 % (1.0-4.0); HEMATOCRIT 37.5 % (42.0-52.0); LYMPH # 1.8 10*3/uL (1.3-4.4); LYMPH % 16.8 % (27.0-41.0); MEAN CORPUSCULAR HGB 26.8 pg (27.0-31.0); MEAN CORPUSCULAR HGB CONC 31.2 g/dl (33.0-37.0); MEAN PLATELET VOLUME 9.3 fl (9.6-12.3); MONO # 0.7 10*3/uL (0.1-1.0); MONO % 6.1 % (3.0-9.0); NEUT # 7.9 10*3/uL (2.3-7.9); NEUT % 73.5 % (47.0-73.0); PLATELET COUNT AUTOMATED 422 10*3/uL (130-400); RED BLOOD COUNT 4.36 10*6/uL (4.50-5.90); RED CELL DISTRI WIDTH 14.4 % (0-14.5); WHITE BLOOD COUNT 10.8 10*3/uL (4.8-10.8)
[2022-08-27 16:22] LABS: ACT PARTIAL THROMBO TIME 25.4 SECONDS (20.0-32.1); INTERNATIONAL NORM RATIO 0.9 (2.0-3.5)
[2022-08-27 16:31] LABS: ALKALINE PHOSPHATASE 118 U/L (46-116); BUN 16 mg/dl (9-23); CHLORIDE 98 mmol/L (98-107); CREATININE 1.41 mg/dL (0.70-1.30); LIPASE 39 U/L (12-53); POTASSIUM 4.5 mmol/L (3.4-5.1); SGPT/ALT 54 U/L (10-49); SODIUM 134 mmol/L (136-145); TOTAL PROTEIN 8.4 gm/dL (6.0-8.0)
[2022-08-27 23:10] VITALS: BP 128/76
[2022-08-28 01:14] LABS: BILIRUBIN Negative (Negative); BLOOD Negative (Negative); CLARITY Clear (Clear); COLOR Yellow (Yellow); GLUCOSE Trace (Negative); KETONE Negative (Negative); LEUKO ESTERASE Negative (Negative); NITRITE Negative (Negative); PH 5.5 (4.5-8.0); SPECIFIC GRAVITY 1.015 (1.001-1.030); UROBILINOGEN 0.2 E.U./dl (0.0-1.0)
[2022-08-28 01:36] LABS: FINE GRANULAR CAST 0-2; RBC 0-2 rbc/hpf (0-2); WBC 0-2 wbc/hpf (0-5)
[2022-08-28 01:59] VITALS: BP 120/64
[2022-08-28 04:59] VITALS: BP 116/84
[2022-08-28 08:22] VITALS: BP 120/80
[2022-08-28 15:47] LABS: BASO % 0.5 % (0.0-1.0); EOS # 0.2 10*3/uL (0.0-0.4); HEMATOCRIT 34.3 % (42.0-52.0); LYMPH % 27.1 % (27.0-41.0); MEAN CELL VOLUME 86.4 fl (80.0-94.0); MEAN CORPUSCULAR HGB CONC 31.2 g/dl (33.0-37.0); MEAN PLATELET VOLUME 9.2 fl (9.6-12.3); MONO # 0.6 10*3/uL (0.1-1.0); MONO % 8.1 % (3.0-9.0); NEUT # 4.6 10*3/uL (2.3-7.9); NEUT % 60.8 % (47.0-73.0); PLATELET COUNT AUTOMATED 371 10*3/uL (130-400); RED BLOOD COUNT 3.97 10*6/uL (4.50-5.90); RED CELL DISTRI WIDTH 14.4 % (0-14.5); WHITE BLOOD COUNT 7.5 10*3/uL (4.8-10.8)
[2022-08-28 16:00] VITALS: BP 114/76
[2022-08-28 16:03] LABS: ALKALINE PHOSPHATASE 104 U/L (46-116); BUN 13 mg/dl (9-23); CHLORIDE 101 mmol/L (98-107); POTASSIUM 4.6 mmol/L (3.4-5.1); SGPT/ALT 41 U/L (10-49); SODIUM 135 mmol/L (136-145); TOTAL PROTEIN 7.2 gm/dL (6.0-8.0)
[2022-08-28 16:15] VITALS: BP 114/76
[2022-08-28 20:00] VITALS: BP 157/89
[2022-08-29] VITALS (8 sets, daily range): BP systolic 119–160; BP diastolic 75–96
[2022-08-29 10:24] LABS: BUN 13 mg/dl (9-23); CHLORIDE 102 mmol/L (98-107); CREATININE 1.29 mg/dL (0.70-1.30); POTASSIUM 4.7 mmol/L (3.4-5.1); SODIUM 135 mmol/L (136-145)
[2022-08-29 11:00] LABS: BASO # 0.1 10*3/uL (0.0-0.1); BASO % 0.6 % (0.0-1.0); EOS # 0.2 10*3/uL (0.0-0.4); EOS % 2.6 % (1.0-4.0); HEMATOCRIT 31.6 % (42.0-52.0); LYMPH # 1.5 10*3/uL (1.3-4.4); MEAN CELL VOLUME 85.2 fl (80.0-94.0); MEAN CORPUSCULAR HGB CONC 31.6 g/dl (33.0-37.0); MONO # 0.5 10*3/uL (0.1-1.0); MONO % 6.5 % (3.0-9.0); NEUT # 5.5 10*3/uL (2.3-7.9); PLATELET COUNT AUTOMATED 318 10*3/uL (130-400); RED BLOOD COUNT 3.71 10*6/uL (4.50-5.90); RED CELL DISTRI WIDTH 13.9 % (0-14.5); WHITE BLOOD COUNT 7.8 10*3/uL (4.8-10.8)
[2022-08-30] VITALS: BP 150/88; BP 154/99
[2022-08-30] MEDS ORDERED: HYDR25T PO (01:04)
[2022-08-30] MEDS ORDERED: VITAMIN D350 MC2 PO (01:05)
[2022-08-30] MEDS ORDERED: LANTUS SOL100 UNIT/1 SC (01:11)
[2022-08-30 07:10] LABS: BUN 12 mg/dl (9-23)
[2022-08-30 08:45] VITALS: BP 154/92
[2022-08-30 09:59] LABS: BASO % 0.6 % (0.0-1.0); EOS # 0.2 10*3/uL (0.0-0.4); EOS % 3.2 % (1.0-4.0); HEMATOCRIT 35.2 % (42.0-52.0); LYMPH # 1.5 10*3/uL (1.3-4.4); LYMPH % 22.4 % (27.0-41.0); MEAN CELL VOLUME 87.6 fl (80.0-94.0); MEAN CORPUSCULAR HGB 27.1 pg (27.0-31.0); MEAN PLATELET VOLUME 9.2 fl (9.6-12.3); MONO # 0.4 10*3/uL (0.1-1.0); MONO % 5.1 % (3.0-9.0); NEUT # 4.6 10*3/uL (2.3-7.9); NEUT % 67.8 % (47.0-73.0); PLATELET COUNT AUTOMATED 364 10*3/uL (130-400); RED BLOOD COUNT 4.02 10*6/uL (4.50-5.90); RED CELL DISTRI WIDTH 13.9 % (0-14.5); WHITE BLOOD COUNT 6.8 10*3/uL (4.8-10.8)
[2022-08-30 10:17] LABS: BUN 9 mg/dl (9-23); CHLORIDE 102 mmol/L (98-107); CREATININE 1.08 mg/dL (0.70-1.30); POTASSIUM 4.4 mmol/L (3.4-5.1); SODIUM 135 mmol/L (136-145)
[2022-08-30 12:40] VITALS: BP 148/88
[2022-08-30 16:00] VITALS: BP 154/91
[2022-08-30 20:00] VITALS: BP 151/80
[2022-08-31] VITALS: BP 155/75
[2022-08-31 07:28] LABS: BASO % 0.5 % (0.0-1.0); EOS # 0.2 10*3/uL (0.0-0.4); EOS % 3.1 % (1.0-4.0); LYMPH # 1.7 10*3/uL (1.3-4.4); LYMPH % 26.9 % (27.0-41.0); MEAN CELL VOLUME 84.7 fl (80.0-94.0); MEAN CORPUSCULAR HGB 26.8 pg (27.0-31.0); MEAN CORPUSCULAR HGB CONC 31.7 g/dl (33.0-37.0); MEAN PLATELET VOLUME 9.4 fl (9.6-12.3); MONO # 0.4 10*3/uL (0.1-1.0); MONO % 6.8 % (3.0-9.0); NEUT % 61.3 % (47.0-73.0); PLATELET COUNT AUTOMATED 337 10*3/uL (130-400); RED BLOOD COUNT 3.54 10*6/uL (4.50-5.90); RED CELL DISTRI WIDTH 13.8 % (0-14.5); WHITE BLOOD COUNT 6.4 10*3/uL (4.8-10.8)
[2022-08-31 07:43] LABS: BUN 13 mg/dl (9-23); CHLORIDE 105 mmol/L (98-107); CREATININE 1.11 mg/dL (0.70-1.30); POTASSIUM 4.1 mmol/L (3.4-5.1); SODIUM 139 mmol/L (136-145)
[2022-08-31 08:00] VITALS: BP 165/95
[2022-08-31 12:00] VITALS: BP 137/73
[2022-08-31 16:00] VITALS: BP 160/91
[2022-08-31 20:00] VITALS: BP 129/91
[2022-09-01] VITALS: BP 134/66
[2022-09-01 07:47] VITALS: BP 146/82
[2022-09-01] MEDS ORDERED: GLIMEPIRIDE2 MG PO (08:49)
[2022-09-01 11:48] VITALS: BP 164/88
[2022-09-01 16:00] VITALS: BP 178/100
[2022-09-01 20:00] VITALS: BP 172/91
[2022-09-02] VITALS: BP 157/82
[2022-09-02 08:00] VITALS: BP 173/90
[2022-09-02] MEDS ORDERED: JARDIANCE25 MG PO (08:20)
== END 2022-09-02 13:30 | disposition home health service (06) | DRG 720 ==
LOC: ED 14:25 → EDHOLD 17:54 → 5E 17:54 → 4E 08-28 14:26 → EDHOLD 08-28 14:26 → 4E 08-28 14:26 → 5E 08-28 14:53
PROVIDERS: Family Medicine; Internal Medicine Infectious Disease; ADMIT Internal Medicine; ATTEND Internal Medicine
PROC: 0Y9N0ZZ Drainage of Left Foot, Open Approach (ICD-10-PCS; principal; 2022-08-29)
PROC: 02HV33Z Insertion of Infusion Device into Superior Vena Cava, Percutaneous Approach (ICD-10-PCS; 2022-08-29)
PROC: B548ZZA Ultrasonography of Superior Vena Cava, Guidance (ICD-10-PCS; 2022-08-29)
DX: A41.02 Sepsis due to Methicillin resistant Staphylococcus aureus (principal); L02.612 Cutaneous abscess of left foot; E11.628 Type 2 diabetes mellitus with other skin complications; L03.116 Cellulitis of left lower limb; N17.9 Acute kidney failure, unspecified; E44.1 Mild protein-calorie malnutrition; M86.179 Other acute osteomyelitis, unspecified ankle and foot; M65.9 Synovitis and tenosynovitis, unspecified; E11.43 Type 2 diabetes mellitus with diabetic autonomic (poly)neuropathy; K31.84 Gastroparesis; E11.69 Type 2 diabetes mellitus with other specified complication; M86.8X8 Other osteomyelitis, other site; I12.9 Hypertensive chronic kidney disease with stage 1 through stage 4 chronic kidney disease, or unspecified chronic kidney disease; E11.22 Type 2 diabetes mellitus with diabetic chronic kidney disease; E11.42 Type 2 diabetes mellitus with diabetic polyneuropathy; Z88.8 Allergy status to other drugs, medicaments and biological substances; Z90.49 Acquired absence of other specified parts of digestive tract; Z89.432 Acquired absence of left foot; Z89.431 Acquired absence of right foot; Z82.49 Family history of ischemic heart disease and other diseases of the circulatory system; Z82.3 Family history of stroke; Z68.35 Body mass index [BMI] 35.0-35.9, adult; N18.30 Chronic kidney disease, stage 3 unspecified

== ENCOUNTER → 2022-08-27 | Outpatient (CLI) | payer OTHER ==
[~2022-08-27] MED LIST changes: +VITAMIN D350 MC2 PO
== END ==
LOC: WOUNDCARE 01:14
PROVIDERS: ATTEND Nurse Practitioner Family
DX: T81.89XA Other complications of procedures, not elsewhere classified, initial encounter (principal); E11.621 Type 2 diabetes mellitus with foot ulcer; L97.522 Non-pressure chronic ulcer of other part of left foot with fat layer exposed; E11.69 Type 2 diabetes mellitus with other specified complication; M86.68 Other chronic osteomyelitis, other site; E11.40 Type 2 diabetes mellitus with diabetic neuropathy, unspecified; E78.5 Hyperlipidemia, unspecified; I10 Essential (primary) hypertension; L84 Corns and callosities; K21.9 Gastro-esophageal reflux disease without esophagitis; F12.90 Cannabis use, unspecified, uncomplicated; Y92.238 Other place in hospital as the place of occurrence of the external cause; Y83.8 Other surgical procedures as the cause of abnormal reaction of the patient, or of later complication, without mention of misadventure at the time of the procedure

== ENCOUNTER → 2022-09-07 | Outpatient (CLI) | payer OTHER ==
[~2022-09-07] MED LIST changes: +JARDIANCE25 MG PO; +VITAMIN D350 MC2 PO
== END | disposition home or self-care (01) ==
LOC: WOUNDCARE 03:01
PROVIDERS: ATTEND Nurse Practitioner Family
DX: T81.89XA Other complications of procedures, not elsewhere classified, initial encounter (principal); E11.621 Type 2 diabetes mellitus with foot ulcer; L97.522 Non-pressure chronic ulcer of other part of left foot with fat layer exposed; L84 Corns and callosities; E11.69 Type 2 diabetes mellitus with other specified complication; M86.68 Other chronic osteomyelitis, other site; E11.40 Type 2 diabetes mellitus with diabetic neuropathy, unspecified; E78.5 Hyperlipidemia, unspecified; I10 Essential (primary) hypertension; F12.90 Cannabis use, unspecified, uncomplicated; Y92.238 Other place in hospital as the place of occurrence of the external cause; Y83.8 Other surgical procedures as the cause of abnormal reaction of the patient, or of later complication, without mention of misadventure at the time of the procedure

== ENCOUNTER → 2022-09-15 | Outpatient (CLI) | payer OTHER | END | disposition home or self-care (01) | LOC: WOUNDCARE 03:53 | PROVIDERS: ATTEND Nurse Practitioner Family | DX: T81.89XD Other complications of procedures, not elsewhere classified, subsequent encounter (principal); E11.621 Type 2 diabetes mellitus with foot ulcer; L97.522 Non-pressure chronic ulcer of other part of left foot with fat layer exposed; L84 Corns and callosities; E11.69 Type 2 diabetes mellitus with other specified complication; M86.68 Other chronic osteomyelitis, other site; E11.40 Type 2 diabetes mellitus with diabetic neuropathy, unspecified; E78.5 Hyperlipidemia, unspecified; I10 Essential (primary) hypertension; F12.90 Cannabis use, unspecified, uncomplicated; Y83.8 Other surgical procedures as the cause of abnormal reaction of the patient, or of later complication, without mention of misadventure at the time of the procedure ==

== ENCOUNTER → 2022-09-22 | Outpatient (CLI) | payer OTHER | END | disposition home or self-care (01) | LOC: WOUNDCARE 03:07 | PROVIDERS: ATTEND Nurse Practitioner Family | DX: T81.89XD Other complications of procedures, not elsewhere classified, subsequent encounter (principal); E11.621 Type 2 diabetes mellitus with foot ulcer; L97.522 Non-pressure chronic ulcer of other part of left foot with fat layer exposed; E11.69 Type 2 diabetes mellitus with other specified complication; M86.68 Other chronic osteomyelitis, other site; E11.40 Type 2 diabetes mellitus with diabetic neuropathy, unspecified; E78.5 Hyperlipidemia, unspecified; I10 Essential (primary) hypertension; Y83.8 Other surgical procedures as the cause of abnormal reaction of the patient, or of later complication, without mention of misadventure at the time of the procedure ==

== ENCOUNTER → 2022-09-30 | Outpatient (CLI) | payer OTHER | LOC: WOUNDCARE 01:15 | PROVIDERS: ATTEND Nurse Practitioner Family | DX: Z53.21 Procedure and treatment not carried out due to patient leaving prior to being seen by health care provider (principal) ==

== ENCOUNTER → 2022-10-06 | Outpatient (CLI) | payer OTHER | LOC: WOUNDCARE 01:04 | PROVIDERS: ATTEND Nurse Practitioner Family | DX: Z53.21 Procedure and treatment not carried out due to patient leaving prior to being seen by health care provider (principal) ==

== ENCOUNTER → 2022-10-20 | Outpatient (CLI) | payer OTHER | END | disposition home or self-care (01) | LOC: WOUNDCARE 10-13 02:53 | PROVIDERS: ATTEND Nurse Practitioner Family | DX: T81.89XD Other complications of procedures, not elsewhere classified, subsequent encounter (principal); E11.621 Type 2 diabetes mellitus with foot ulcer; L97.522 Non-pressure chronic ulcer of other part of left foot with fat layer exposed; L84 Corns and callosities; E11.69 Type 2 diabetes mellitus with other specified complication; M86.68 Other chronic osteomyelitis, other site; E11.40 Type 2 diabetes mellitus with diabetic neuropathy, unspecified; E78.5 Hyperlipidemia, unspecified; I10 Essential (primary) hypertension; F12.90 Cannabis use, unspecified, uncomplicated; Y83.8 Other surgical procedures as the cause of abnormal reaction of the patient, or of later complication, without mention of misadventure at the time of the procedure ==

== ENCOUNTER → 2022-10-27 | Outpatient (CLI) | payer OTHER | END | disposition home or self-care (01) | LOC: WOUNDCARE 03:29 | PROVIDERS: ATTEND Nurse Practitioner Family | DX: T81.89XD Other complications of procedures, not elsewhere classified, subsequent encounter (principal); E11.621 Type 2 diabetes mellitus with foot ulcer; L97.522 Non-pressure chronic ulcer of other part of left foot with fat layer exposed; E11.69 Type 2 diabetes mellitus with other specified complication; M86.68 Other chronic osteomyelitis, other site; E11.40 Type 2 diabetes mellitus with diabetic neuropathy, unspecified; E78.5 Hyperlipidemia, unspecified; I10 Essential (primary) hypertension; F12.90 Cannabis use, unspecified, uncomplicated; Y83.8 Other surgical procedures as the cause of abnormal reaction of the patient, or of later complication, without mention of misadventure at the time of the procedure ==

== ENCOUNTER → 2022-11-10 | Outpatient (CLI) | payer OTHER | END | disposition home or self-care (01) | LOC: WOUNDCARE 07-01 00:22 | PROVIDERS: ATTEND Nurse Practitioner Family | DX: T81.89XD Other complications of procedures, not elsewhere classified, subsequent encounter (principal); E11.621 Type 2 diabetes mellitus with foot ulcer; L97.522 Non-pressure chronic ulcer of other part of left foot with fat layer exposed; E11.69 Type 2 diabetes mellitus with other specified complication; M86.68 Other chronic osteomyelitis, other site; E11.40 Type 2 diabetes mellitus with diabetic neuropathy, unspecified; I10 Essential (primary) hypertension; E78.5 Hyperlipidemia, unspecified; F12.90 Cannabis use, unspecified, uncomplicated; Y83.8 Other surgical procedures as the cause of abnormal reaction of the patient, or of later complication, without mention of misadventure at the time of the procedure ==

== ENCOUNTER → 2022-11-25 | Outpatient (CLI) | payer OTHER | END | disposition home or self-care (01) | LOC: WOUNDCARE 11-24 10:45 | PROVIDERS: ATTEND Nurse Practitioner Family | DX: T81.89XD Other complications of procedures, not elsewhere classified, subsequent encounter (principal); E11.621 Type 2 diabetes mellitus with foot ulcer; L97.522 Non-pressure chronic ulcer of other part of left foot with fat layer exposed; E11.69 Type 2 diabetes mellitus with other specified complication; M86.68 Other chronic osteomyelitis, other site; E11.40 Type 2 diabetes mellitus with diabetic neuropathy, unspecified; E78.5 Hyperlipidemia, unspecified; I10 Essential (primary) hypertension; F12.90 Cannabis use, unspecified, uncomplicated; Y83.8 Other surgical procedures as the cause of abnormal reaction of the patient, or of later complication, without mention of misadventure at the time of the procedure ==

== ENCOUNTER → 2022-12-02 | Outpatient (CLI) | payer OTHER | END | disposition home or self-care (01) | LOC: WOUNDCARE 01:16 | PROVIDERS: ATTEND Nurse Practitioner Family | DX: T81.89XD Other complications of procedures, not elsewhere classified, subsequent encounter (principal); E11.621 Type 2 diabetes mellitus with foot ulcer; L97.522 Non-pressure chronic ulcer of other part of left foot with fat layer exposed; L84 Corns and callosities; E11.69 Type 2 diabetes mellitus with other specified complication; M86.68 Other chronic osteomyelitis, other site; E11.40 Type 2 diabetes mellitus with diabetic neuropathy, unspecified; E78.5 Hyperlipidemia, unspecified; I10 Essential (primary) hypertension; F12.90 Cannabis use, unspecified, uncomplicated; Y83.8 Other surgical procedures as the cause of abnormal reaction of the patient, or of later complication, without mention of misadventure at the time of the procedure ==

== ENCOUNTER → 2022-12-15 | Outpatient (CLI) | payer OTHER | END | disposition home or self-care (01) | LOC: WOUNDCARE 00:44 | PROVIDERS: ATTEND Nurse Practitioner Family | DX: T81.89XD Other complications of procedures, not elsewhere classified, subsequent encounter (principal); E11.621 Type 2 diabetes mellitus with foot ulcer; L97.522 Non-pressure chronic ulcer of other part of left foot with fat layer exposed; E11.69 Type 2 diabetes mellitus with other specified complication; M86.68 Other chronic osteomyelitis, other site; E11.40 Type 2 diabetes mellitus with diabetic neuropathy, unspecified; E78.5 Hyperlipidemia, unspecified; I10 Essential (primary) hypertension; F12.90 Cannabis use, unspecified, uncomplicated; Y83.8 Other surgical procedures as the cause of abnormal reaction of the patient, or of later complication, without mention of misadventure at the time of the procedure ==

== ENCOUNTER → 2022-12-20 | Outpatient (CLI) | payer OTHER | END | disposition home or self-care (01) | LOC: WOUNDCARE 00:25 | PROVIDERS: ATTEND Podiatrist Foot & Ankle Surgery | DX: T87.89 Other complications of amputation stump (principal); E11.621 Type 2 diabetes mellitus with foot ulcer; L97.522 Non-pressure chronic ulcer of other part of left foot with fat layer exposed; L84 Corns and callosities; E11.40 Type 2 diabetes mellitus with diabetic neuropathy, unspecified; E11.69 Type 2 diabetes mellitus with other specified complication; M86.68 Other chronic osteomyelitis, other site; I10 Essential (primary) hypertension; E78.5 Hyperlipidemia, unspecified; F12.90 Cannabis use, unspecified, uncomplicated; Y83.5 Amputation of limb(s) as the cause of abnormal reaction of the patient, or of later complication, without mention of misadventure at the time of the procedure ==

== ENCOUNTER → 2022-12-29 | Outpatient (CLI) | payer OTHER | END | disposition home or self-care (01) | LOC: WOUNDCARE 12-09 02:20 | PROVIDERS: ATTEND Nurse Practitioner Family | DX: E11.621 Type 2 diabetes mellitus with foot ulcer (principal); L97.522 Non-pressure chronic ulcer of other part of left foot with fat layer exposed; L84 Corns and callosities; E11.40 Type 2 diabetes mellitus with diabetic neuropathy, unspecified; E11.69 Type 2 diabetes mellitus with other specified complication; M86.68 Other chronic osteomyelitis, other site; I10 Essential (primary) hypertension; E78.5 Hyperlipidemia, unspecified ==

== ENCOUNTER → 2023-01-12 | Outpatient (CLI) | payer OTHER | END | disposition home or self-care (01) | LOC: WOUNDCARE 01-05 01:27 | PROVIDERS: ATTEND Nurse Practitioner Family | DX: E11.621 Type 2 diabetes mellitus with foot ulcer (principal); L97.522 Non-pressure chronic ulcer of other part of left foot with fat layer exposed; L84 Corns and callosities; E11.40 Type 2 diabetes mellitus with diabetic neuropathy, unspecified; E11.69 Type 2 diabetes mellitus with other specified complication; M86.68 Other chronic osteomyelitis, other site; I10 Essential (primary) hypertension; E78.5 Hyperlipidemia, unspecified ==

== ENCOUNTER → 2023-01-26 | Outpatient (CLI) | payer OTHER ==
[~2023-01-26] MED LIST changes: +BUMETANIDE1 MG PO
== END | disposition home or self-care (01) ==
LOC: WOUNDCARE 01:25
PROVIDERS: ATTEND Nurse Practitioner Family
DX: T81.89XA Other complications of procedures, not elsewhere classified, initial encounter (principal); E11.621 Type 2 diabetes mellitus with foot ulcer; L97.526 Non-pressure chronic ulcer of other part of left foot with bone involvement without evidence of necrosis; E11.69 Type 2 diabetes mellitus with other specified complication; M86.68 Other chronic osteomyelitis, other site; E11.40 Type 2 diabetes mellitus with diabetic neuropathy, unspecified; I10 Essential (primary) hypertension; E78.5 Hyperlipidemia, unspecified; F12.90 Cannabis use, unspecified, uncomplicated; Y92.238 Other place in hospital as the place of occurrence of the external cause; Y83.8 Other surgical procedures as the cause of abnormal reaction of the patient, or of later complication, without mention of misadventure at the time of the procedure

== ENCOUNTER → 2023-02-02 | Outpatient (CLI) | payer OTHER | END | disposition home or self-care (01) | LOC: WOUNDCARE 01:21 | PROVIDERS: ATTEND Nurse Practitioner Family | DX: E11.621 Type 2 diabetes mellitus with foot ulcer (principal); L97.522 Non-pressure chronic ulcer of other part of left foot with fat layer exposed; E11.69 Type 2 diabetes mellitus with other specified complication; M86.68 Other chronic osteomyelitis, other site; R11.0 Nausea; E11.40 Type 2 diabetes mellitus with diabetic neuropathy, unspecified; I10 Essential (primary) hypertension; E78.5 Hyperlipidemia, unspecified; F12.90 Cannabis use, unspecified, uncomplicated ==

== ENCOUNTER → 2023-02-09 | Outpatient (CLI) | payer OTHER ==
[2023-02-09 12:43] LABS: URINE CREATININE RANDOM 22.88 mg/dL
[2023-02-09 13:03] LABS: POTASSIUM 5.1 mmol/L (3.4-5.1)
== END | disposition home or self-care (01) ==
LOC: WOUNDCARE 01:46
PROVIDERS: Surgery; ATTEND Nurse Practitioner Family
DX: T87.89 Other complications of amputation stump (principal); E11.621 Type 2 diabetes mellitus with foot ulcer; L97.522 Non-pressure chronic ulcer of other part of left foot with fat layer exposed; E11.69 Type 2 diabetes mellitus with other specified complication; M86.68 Other chronic osteomyelitis, other site; E11.40 Type 2 diabetes mellitus with diabetic neuropathy, unspecified; R11.0 Nausea; I10 Essential (primary) hypertension; E78.5 Hyperlipidemia, unspecified; Y83.5 Amputation of limb(s) as the cause of abnormal reaction of the patient, or of later complication, without mention of misadventure at the time of the procedure

== ENCOUNTER → 2023-02-16 | Outpatient (CLI) | payer OTHER | END | disposition home or self-care (01) | LOC: WOUNDCARE 02:36 | PROVIDERS: ATTEND Nurse Practitioner Primary Care | DX: T87.89 Other complications of amputation stump (principal); E11.621 Type 2 diabetes mellitus with foot ulcer; L97.522 Non-pressure chronic ulcer of other part of left foot with fat layer exposed; E11.69 Type 2 diabetes mellitus with other specified complication; M86.68 Other chronic osteomyelitis, other site; E11.40 Type 2 diabetes mellitus with diabetic neuropathy, unspecified; R11.0 Nausea; I10 Essential (primary) hypertension; E78.5 Hyperlipidemia, unspecified; Y83.5 Amputation of limb(s) as the cause of abnormal reaction of the patient, or of later complication, without mention of misadventure at the time of the procedure ==

== ENCOUNTER → 2023-03-02 | Outpatient (CLI) | payer OTHER | END | disposition home or self-care (01) | LOC: RESCLI 03:01 → WOUNDCARE 03:01 → RESCLI 15:54 | PROVIDERS: ATTEND Family Medicine | DX: T81.89XD Other complications of procedures, not elsewhere classified, subsequent encounter (principal); E11.621 Type 2 diabetes mellitus with foot ulcer; L97.522 Non-pressure chronic ulcer of other part of left foot with fat layer exposed; E11.69 Type 2 diabetes mellitus with other specified complication; M86.68 Other chronic osteomyelitis, other site; E11.40 Type 2 diabetes mellitus with diabetic neuropathy, unspecified; E78.5 Hyperlipidemia, unspecified; R11.0 Nausea; I10 Essential (primary) hypertension; F12.90 Cannabis use, unspecified, uncomplicated; Y83.8 Other surgical procedures as the cause of abnormal reaction of the patient, or of later complication, without mention of misadventure at the time of the procedure ==

== ENCOUNTER → 2023-03-16 | Outpatient (CLI) | payer OTHER | END | disposition home or self-care (01) | LOC: WOUNDCARE 00:46 | PROVIDERS: ATTEND Nurse Practitioner Family | DX: T87.89 Other complications of amputation stump (principal); E11.621 Type 2 diabetes mellitus with foot ulcer; L97.522 Non-pressure chronic ulcer of other part of left foot with fat layer exposed; L97.512 Non-pressure chronic ulcer of other part of right foot with fat layer exposed; S91.301D Unspecified open wound, right foot, subsequent encounter; L84 Corns and callosities; E11.69 Type 2 diabetes mellitus with other specified complication; M86.68 Other chronic osteomyelitis, other site; E11.40 Type 2 diabetes mellitus with diabetic neuropathy, unspecified; E78.5 Hyperlipidemia, unspecified; R11.0 Nausea; I10 Essential (primary) hypertension; F12.90 Cannabis use, unspecified, uncomplicated; Y83.5 Amputation of limb(s) as the cause of abnormal reaction of the patient, or of later complication, without mention of misadventure at the time of the procedure ==

== ENCOUNTER → 2023-03-24 | Outpatient (CLI) | payer OTHER | END | disposition home or self-care (01) | LOC: WOUNDCARE 02:13 | PROVIDERS: ATTEND Nurse Practitioner Family | DX: T81.89XD Other complications of procedures, not elsewhere classified, subsequent encounter (principal); E11.621 Type 2 diabetes mellitus with foot ulcer; L97.512 Non-pressure chronic ulcer of other part of right foot with fat layer exposed; L97.522 Non-pressure chronic ulcer of other part of left foot with fat layer exposed; L89.890 Pressure ulcer of other site, unstageable; S91.301D Unspecified open wound, right foot, subsequent encounter; L84 Corns and callosities; E11.40 Type 2 diabetes mellitus with diabetic neuropathy, unspecified; E11.69 Type 2 diabetes mellitus with other specified complication; M86.68 Other chronic osteomyelitis, other site; E78.5 Hyperlipidemia, unspecified; I10 Essential (primary) hypertension; R11.0 Nausea; F12.90 Cannabis use, unspecified, uncomplicated; X58.XXXD Exposure to other specified factors, subsequent encounter; Y83.8 Other surgical procedures as the cause of abnormal reaction of the patient, or of later complication, without mention of misadventure at the time of the procedure ==

== ENCOUNTER 2023-03-30 09:00 | Inpatient (IN) | payer OTHER ==
[~2023-03-30] VITALS: Ht 167.6 cm; Wt 97.5 kg
[~2023-03-30 09:00] MED LIST changes: -HUMULIN R500 UNIT/1 SQ; -HYDROCHLOROTH12.5 M2 PO; -MOUNJARO5 MG/0.51 SQ
[2023-03-30 09:04] VITALS: BP 122/74
[2023-03-30 10:12] LABS: BASO # 0.1 10*3/uL (0.0-0.1); BASO % 0.6 % (0.0-1.0); EOS # 0.2 10*3/uL (0.0-0.4); EOS % 2.1 % (1.0-4.0); HEMATOCRIT 36.6 % (42.0-52.0); LYMPH # 1.5 10*3/uL (1.3-4.4); MEAN CELL VOLUME 83.2 fl (80.0-94.0); MEAN CORPUSCULAR HGB CONC 32.5 g/dl (33.0-37.0); MEAN PLATELET VOLUME 10.7 fl (9.6-12.3); MONO # 0.5 10*3/uL (0.1-1.0); MONO % 6.6 % (3.0-9.0); NEUT # 5.7 10*3/uL (2.3-7.9); NEUT % 70.8 % (47.0-73.0); PLATELET COUNT AUTOMATED 349 10*3/uL (130-400); WHITE BLOOD COUNT 8.1 10*3/uL (4.8-10.8)
[2023-03-30] MEDS ORDERED: MOUNJARO5 MG/0.51 SQ (10:18)
[2023-03-30] MEDS ORDERED: HUMULIN R500 UNIT/1 SQ (10:20)
[2023-03-30 10:30] LABS: ACT PARTIAL THROMBO TIME 20.7 SECONDS (20.0-32.1); INTERNATIONAL NORM RATIO 0.9 (2.0-3.5)
[2023-03-30 13:13] VITALS: BP 122/71
[2023-03-30] MEDS ORDERED: ZESTORETIC 20-1 EACH PO (15:27)
[2023-03-30] MEDS ORDERED: LISINOPRIL20 MG PO (15:32)
[2023-03-30] MEDS ORDERED: HYDROCHLOROTH12.5 M2 PO (15:34)
== END 2023-03-30 17:04 | disposition left against medical advice (07) | DRG 383 ==
LOC: ED 09:00 → EDHOLD 11:59
PROVIDERS: Emergency Medicine; ADMIT Internal Medicine; ATTEND Internal Medicine
DX: L03.116 Cellulitis of left lower limb (principal); N17.9 Acute kidney failure, unspecified; E11.621 Type 2 diabetes mellitus with foot ulcer; N18.30 Chronic kidney disease, stage 3 unspecified; E11.42 Type 2 diabetes mellitus with diabetic polyneuropathy; K21.9 Gastro-esophageal reflux disease without esophagitis; E11.22 Type 2 diabetes mellitus with diabetic chronic kidney disease; L97.528 Non-pressure chronic ulcer of other part of left foot with other specified severity; Z53.29 Procedure and treatment not carried out because of patient's decision for other reasons; Z79.899 Other long term (current) drug therapy; Z79.1 Long term (current) use of non-steroidal anti-inflammatories (NSAID); Z90.49 Acquired absence of other specified parts of digestive tract; Z88.8 Allergy status to other drugs, medicaments and biological substances; Z82.49 Family history of ischemic heart disease and other diseases of the circulatory system; Z82.3 Family history of stroke

== ENCOUNTER → 2023-03-30 | Outpatient (CLI) | payer OTHER ==
[~2023-03-30] MED LIST changes: +HUMULIN R500 UNIT/1 SQ; +HYDROCHLOROTH12.5 M2 PO; +MOUNJARO5 MG/0.51 SQ
== END | disposition home or self-care (01) ==
LOC: WOUNDCARE 00:30
PROVIDERS: ATTEND Nurse Practitioner Family
DX: T87.89 Other complications of amputation stump (principal); E11.621 Type 2 diabetes mellitus with foot ulcer; L97.511 Non-pressure chronic ulcer of other part of right foot limited to breakdown of skin; L97.522 Non-pressure chronic ulcer of other part of left foot with fat layer exposed; L84 Corns and callosities; S91.301D Unspecified open wound, right foot, subsequent encounter; E11.69 Type 2 diabetes mellitus with other specified complication; M86.68 Other chronic osteomyelitis, other site; E11.40 Type 2 diabetes mellitus with diabetic neuropathy, unspecified; E78.5 Hyperlipidemia, unspecified; I10 Essential (primary) hypertension; X58.XXXD Exposure to other specified factors, subsequent encounter; Y83.5 Amputation of limb(s) as the cause of abnormal reaction of the patient, or of later complication, without mention of misadventure at the time of the procedure

== ENCOUNTER → 2023-04-04 | Outpatient (CLI) | payer OTHER ==
[~2023-04-04] MED LIST changes: +HUMULIN R500 UNIT/1 SQ; +HYDROCHLOROTH12.5 M2 PO; +MOUNJARO5 MG/0.51 SQ
[2023-04-04 12:46] LABS: BASO # 0.1 10*3/uL (0.0-0.1); BASO % 0.5 % (0.0-1.0); EOS # 0.2 10*3/uL (0.0-0.4); EOS % 1.6 % (1.0-4.0); HEMATOCRIT 37.3 % (42.0-52.0); LYMPH # 1.6 10*3/uL (1.3-4.4); LYMPH % 16.8 % (27.0-41.0); MEAN CELL VOLUME 85.2 fl (80.0-94.0); MEAN CORPUSCULAR HGB 26.9 pg (27.0-31.0); MEAN CORPUSCULAR HGB CONC 31.6 g/dl (33.0-37.0); MEAN PLATELET VOLUME 10.4 fl (9.6-12.3); MONO # 0.5 10*3/uL (0.1-1.0); MONO % 5.5 % (3.0-9.0); NEUT % 74.9 % (47.0-73.0); PLATELET COUNT AUTOMATED 361 10*3/uL (130-400); RED BLOOD COUNT 4.38 10*6/uL (4.50-5.90); RED CELL DISTRI WIDTH 14.1 % (0-14.5); WHITE BLOOD COUNT 9.3 10*3/uL (4.8-10.8)
[2023-04-04 13:30] LABS: POTASSIUM 4.9 mmol/L (3.4-5.1)
== END | disposition home or self-care (01) ==
LOC: LAB 11:51
PROVIDERS: ATTEND Nurse Practitioner Family
DX: M86.68 Other chronic osteomyelitis, other site (principal)

== ENCOUNTER → 2023-04-13 | Outpatient (CLI) | payer OTHER | END | disposition home or self-care (01) | LOC: WOUNDCARE 01:49 | PROVIDERS: ATTEND Nurse Practitioner Family | DX: E11.621 Type 2 diabetes mellitus with foot ulcer (principal); L97.522 Non-pressure chronic ulcer of other part of left foot with fat layer exposed; L97.511 Non-pressure chronic ulcer of other part of right foot limited to breakdown of skin; S91.301D Unspecified open wound, right foot, subsequent encounter; E11.69 Type 2 diabetes mellitus with other specified complication; M86.68 Other chronic osteomyelitis, other site; E11.42 Type 2 diabetes mellitus with diabetic polyneuropathy; I10 Essential (primary) hypertension; E78.5 Hyperlipidemia, unspecified; F12.90 Cannabis use, unspecified, uncomplicated; X58.XXXD Exposure to other specified factors, subsequent encounter ==

== ENCOUNTER → 2023-04-20 | Outpatient (CLI) | payer OTHER | END | disposition home or self-care (01) | LOC: WOUNDCARE 02:11 | PROVIDERS: ATTEND Nurse Practitioner Family | DX: E11.621 Type 2 diabetes mellitus with foot ulcer (principal); L97.522 Non-pressure chronic ulcer of other part of left foot with fat layer exposed; L97.512 Non-pressure chronic ulcer of other part of right foot with fat layer exposed; L84 Corns and callosities; S91.301D Unspecified open wound, right foot, subsequent encounter; E11.69 Type 2 diabetes mellitus with other specified complication; M86.68 Other chronic osteomyelitis, other site; E11.40 Type 2 diabetes mellitus with diabetic neuropathy, unspecified; E78.5 Hyperlipidemia, unspecified; I10 Essential (primary) hypertension; F12.90 Cannabis use, unspecified, uncomplicated; X58.XXXD Exposure to other specified factors, subsequent encounter ==